=== PATIENT | male | born 1960 | race Caucasian/White ===

== ENCOUNTER 2021-01-18 20:04 | Emergency (ER) | payer OTHER, SELFPAY ==
--- NOTE | ~2021-01-18 | XR_ITS ---
EXAMINATION: XR FOOT, RIGHT CLINICAL INFORMATION: Right great toe bleeding and pain COMPARISON: None TECHNIQUE: AP, lateral, and oblique views of the right foot. FINDINGS: There is a comminuted fractures through the distal phalanx of the right great toe. No definite involvement of the joint space is visualized. There is some possible periosteal reaction along with some resorption of cortical bone indicating that this is probably subacute. Please correlate with history and the patient's symptoms. No other fractures are seen. XR/XR foot RT min 3V IMPRESSION: Fracture distal phalanx right great toe as described above.
[2021-01-18 20:06] VITALS: BP 158/97; PULSE 99; RESP 18; TEMP 36.6; O2SAT 99; BMI 34.0
--- NOTE | 2021-01-18 20:33 | ED_ITS ---
HPI - Extremity Injury (Lower) General Chief Complaint: Extremity Injury, Lower Stated Complaint: MECH FALL,?TOE DISLOCATION Time Seen by Provider: 01/18/21 20:29 Source: patient Mode of arrival: ambulatory Limitations: no limitations History of Present Illness HPI Narrative: Patient came with right greater toe injury after he stood up and stubbed on as greater toe and fell came with laceration and pain at base of right greater toe no other injuries Related Data Previous Rx's Medication Instructions Recorded clindamycin HCl 300 mg PO QID #40 cap 01/18/21 tramadol 50 mg PO Q6H PRN #20 tab 01/18/21 Allergies Allergy/AdvReac Type Severity Reaction Status Date / Time amoxicillin [AMOXICILLIN] Allergy Unknown UNKNOWN Unverified 05/05/20 16:35 Review of Systems Review of Systems: Yes all other systems are reviewed and are negative [facility] Past Medical History Medical History HTN (hypertension) Plantar fasciitis Plantar fasciitis of left foot Plantar fasciitis of right foot Social History Social History Advance Directives: No Advance Directives Information Provided: Yes Physical Exam Vital Signs: Vital Signs: Last Vital Signs Temp 98.4 F 01/18/21 20:50 Pulse 91 01/18/21 20:50 Resp 17 01/18/21 20:50 BP 163/103 H 01/18/21 20:50 Pulse Ox 96 01/18/21 20:50 Body Mass Index 34.0 Const: General: comfortable and in distress Orientation/consciousness: p atient oriented x3 HENMT: Head: Yes normocephalic and Yes atraumatic Chest: Chest palpation & inspection: normal inspection of the chest Resp: Effort & Inspection: normal respiratory effort Neuro: General: patient oriented x3 Extrem: Ankle/foot/toe images: 1. Laceration at the base of right greater toe extending to the nail, nail is intact no subungual hematoma Procedures Laceration Laceration 1: Site: lower extremity (Right greater toe) Side (If applicable): right Size (cm): 2 Description: linear Depth: simple, single layer Local Anesthetic: lidocaine 2% Amount of anesthesia used (mL): 1 Skin layer closed with: nylon Size (cm): 4-0 Number of sutures: 5 Technique: simple, interrupted MDM - Extremity Injury (Lower) MDM Narrative Medical decision making narrative: Patient with right greater toe distal phalanx fracture with laceration. Laceration sutured will give clindamycin prevent any infection in the fractured part. Advised to follow up with Ortho Discharge Plan Discharge Clinical Impression: Laceration Fracture of toe Qualifiers: Encounter type: initial encounter Toe: great toe Fracture type: closed Phalanx: proximal Fracture alignment: nondisplaced Laterality: right Qualified Code(s): S92.414A - Nondisplaced fracture of proximal phalanx of right great toe, initial encounter for closed fracture Patient Disposition: Home, Self-Care Instructions: Laceration (ED), Toe Fracture (ED) Additional Instructions: Local care as advised take antibiotics to avoid infection. Use crutches for support. Follow-up with Orthopedics Suture removal in 2 weeks Prescriptions: New clindamycin HCl 300 mg capsule 300 mg PO QID Qty: 40 RF: 0 tramadol 50 mg tablet 50 mg PO Q6H PRN (Reason: pain) Qty: 20 RF: 0 Referrals: Ryan Martínez MD [Physician] - 5 days Interventions: ED Discharge Assessment Last Done: 01/18/21 22:34 Discharge Date/Time: 01/18/21 22:34
[2021-01-18 20:50] VITALS: BP 163/103; PULSE 91; RESP 17; TEMP 36.9; O2SAT 96
[2021-01-18] MEDS: traMADoL HCL 50 MG TABLET PO (20:56)
[2021-01-18] MEDS: Lidocaine HCl 2 % MPF 5 ML VIAL INFILTRATI (21:31)
== END 2021-01-18 22:34 | disposition home or self-care (01) ==
PROVIDERS: Emergency Provider Internal Medicine
DX: S92.414A Nondisplaced fracture of proximal phalanx of right great toe, initial encounter for closed fracture (principal); S91.111A Laceration without foreign body of right great toe without damage to nail, initial encounter; W22.8XXA Striking against or struck by other objects, initial encounter; Y93.01 Activity, walking, marching and hiking; Y92.019 Unspecified place in single-family (private) house as the place of occurrence of the external cause; Y99.9 Unspecified external cause status
CPT/HCPCS: 12001; 73630; 99283; 99284

== ENCOUNTER 2022-04-26 17:22 | Emergency (ER) | payer OTHER, SELFPAY ==
--- NOTE | ~2022-04-26 | XR_ITS ---
EXAMINATION: XR HIP, LEFT CLINICAL INFORMATION: Left hip dislocation. COMPARISON: None TECHNIQUE: Two views of the left hip. Postreduction 1 view left hip FINDINGS: Left hip: Several left hip images were obtained and reveals a left hip prosthesis dislocation. There is no prosthetic loosening or fracture. Subsequent single AP image postreduction reveals normal alignment of left hip prosthesis. There is no periprosthetic fracture or bony abnormality. The soft tissues are normal. XR/XR hip LT min 2V IMPRESSION: Dislocated left hip prosthesis without fracture.. Postreduction there is normal alignment of left hip on a single AP view.
--- NOTE | ~2022-04-26 | XR_ITS ---
EXAMINATION: XR HIP, LEFT CLINICAL INFORMATION: Left hip dislocation. COMPARISON: None TECHNIQUE: Two views of the left hip. Postreduction 1 view left hip FINDINGS: Left hip: Several left hip images were obtained and reveals a left hip prosthesis dislocation. There is no prosthetic loosening or fracture. Subsequent single AP image postreduction reveals normal alignment of left hip prosthesis. There is no periprosthetic fracture or bony abnormality. The soft tissues are normal. XR/XR hip LT w PEL1V IMPRESSION: Dislocated left hip prosthesis without fracture.. Postreduction there is normal alignment of left hip on a single AP view.
[2022-04-26 17:46] VITALS: BP 127/102; PULSE 96; RESP 16; TEMP 36.9; O2SAT 96; BMI 34.5
--- NOTE | 2022-04-26 21:27 | ED.EXTPRO ---
HPI - Extremity Problem General Chief complaint: Extremity Injury, Lower Stated complaint: s/p left hip repalcement 04/25 ..dislocation Time Seen by Provider: 04/26/22 21:01 Source: patient Mode of arrival: wheelchair Limitations: no limitations History of Present Illness HPI Narrative: 61 yo male hx of HTN s/p L total HR at [facility] yesterday had spinal anesthesia rolled over in the middle of the night on his hip and woke up with hip pain. Has been using crutches called his surgeon advised to come to ED. He is taking his pain medications and is on eliquis to prevent DVTs MD Complaint: joint pain Onset (ago): hour(s) (> 12) Pain Consistency: constant Location: left and lower extremity (hip) Quality: aching and constant Radiation: none Relieving factors: immobilization Exacerbating factors: palpation Associated symptoms: denies other symptoms Context: other (s/p LTHR) Related Data Previous Rx's Medication Instructions Recorded clindamycin HCl 300 mg capsule 300 mg PO QID #40 caps 01/18/21 tramadol 50 mg tablet 50 mg PO Q6H PRN pain #20 tabs 01/18/21 Allergies Allergy/AdvReac Type Severity Reaction Status Date / Time amoxicillin [AMOXICILLIN] Allergy Unknown UNKNOWN Unverified 05/05/20 16:35 Review of Systems Review of Systems: Constitutional : No Fever, No Chills ENT/Mouth : No Ear Pain, No Hoarseness, No sore throat Eyes: No Eye Pain, No Swelling, No Redness, No Foreign Body Cardiovascular : No Chest Pain, No SOB Respiratory : No Cough, No Dyspnea Gastrointestinal : No Nausea, No Vomiting, No Diarrhea, No abdominal Pain Genitourinary : No Dysuria, No Hematuria Musculoskeletal : positive joint pain, No Myalgias, No Joint Swelling Skin : No Skin lacerations, No rash Neuro : No Weakness, No Numbness, No Loss of Consciousness, No Dizziness, No Headache Psych : No Anxiety/Panic, No Depression Heme/Lymph: no easy bruising, no Lymphadenopathy Endocrine : No Polyuria, No Polydipsia All other systems reviewed and are negative [facility] Past Medical History Attestation statement: The following information was validated with the patient. Medical History (Updated 04/26/22 @ 21:38 by Radha Ortiz DO) HTN (hypertension) Plantar fasciitis Plantar fasciitis of left foot Plantar fasciitis of right foot Surgical History (Updated 04/26/22 @ 21:36 by Radha Ortiz DO) History of total left hip replacement Social History Social History (Updated 04/26/22 @ 21:35 by Radha Ortiz DO) Patient Tobacco Use Status: Never used Tobacco Advance Directives: No Advance Directives Information Provided: No Physical Exam Vital Signs: Vital Signs: Last Vital Signs Temp 98.4 F 04/26/22 17:46 Pulse 89 04/26/22 21:59 Resp 18 04/26/22 21:59 BP 121/58 L 04/26/22 21:59 Pulse Ox 100 04/26/22 21:59 O2 Del Method 04/26/22 21:59 O2 Flow Rate 2 04/26/22 21:59 BMI result Body Mass Index 34.5 Appearance: Alert. Oriented X3. No acute distress. Eyes: Pupils equal, round and reactive to light. ENT: Pharynx normal. Neck: Normal inspection. Neck supple. CVS: Normal heart rate and rhythm. Pulses normal. Respiratory: No respiratory distress. Breath sounds normal. Abdomen: Soft and non-tender. Skin: Skin warm and dry. Normal skin color. Normal skin turgor. Extremities: No lower extremity edema. No calf ttp L hip incision is c/d/i - palpable deformity L hip - distal NV intact bounding pulse Neuro: Oriented X 3. No motor deficit. No sensory deficit. Course Course Course Narrative: awake and alert, doing much better, NV intact, given discs to follow up with his surgeon patient back to his baseline recovered from sedation - brother has been at bedside and is his ride home MDM - Extremity (Nontraumatic) MDM Narrative Medical decision making narrative: 61 yo male with hx of HTN, s/p LTHR yesterday (saturday) rolled over on hip now with L hip dislocation. He is distal NV intact. Will attempt sedation and reduction at bedside will place in immobilizer and have him follow up with his orthopedic surgeon if successful. Procedures Orthopedic Joint Reduction Joint #1: Time Out Performed: Yes Side: left Joint Reduction Location: hip Analgesia: procedural sedation Technique used: other (fulcrum over the knee ) Post-reduction neuro exam: intact Post-reduction vascular: intact Post Reduction X-Ray Obtained: Yes Post Reduction X-Ray Results: reduced Splint Applied: Yes Patient Tolerated Procedure: well and no complications Procedural Sedation Indication: fracture/dislocation reduction ASA Class: I Mallampati Class: II Time of Last PO Intake: 12:00 Preparation: flight engineer manager applied, pulse oximeter, capnometry used, supplemental O2 applied, reversal agents at bedside, suction/airway equipment at bedside and IV secured Fentanyl: IV Fentanyl dose (mcg): 50 IV Propofol dose (mg): 100 Patient Tolerated Procedure: well and no complications Complications: none Interventions: oxygen applied Discharge Plan Discharge Clinical Impression: Dislocation, hip Qualifiers: Encounter type: initial encounter Laterality: left Qualified Code(s): S73.005A - Unspecified dislocation of left hip, initial encounter Patient Disposition: Home, Self-Care Instructions: Precautions after Total Joint Replacement Surgery (ED), Hip Dislocation (ED), Total Hip Replacement (DC), Procedural Sedation (ED) Additional Instructions: return to ED for any worsening symptoms or concerns continue your medications please call your orthopedic surgeon in the morning you were reduced easily in the ED x 1 attempt placed in immobilizer FINDINGS: Left hip: Several left hip images were obtained and reveals a left hip prosthesis dislocation. There is no prosthetic loosening or fracture. Subsequent single AP image postreduction reveals normal alignment of left hip prosthesis. There is no periprosthetic fracture or bony abnormality. The soft tissues are normal. XR/XR hip LT min 2V IMPRESSION: Dislocated left hip prosthesis without fracture.. ? Postreduction there is normal alignment of left hip on a single AP view. Prescriptions: No Action clindamycin HCl 300 mg capsule 300 mg PO QID Qty: 40 0RF tramadol 50 mg tablet 50 mg PO Q6H PRN (Reason: pain) Qty: 20 0RF
[2022-04-26] MEDS: fentaNYL citrate/PF 100 MCG/2 ML VIAL 50 MCG IVPUSH (21:41)
[2022-04-26] MEDS: ondansetron HCL 4 MG/2 ML VIAL IVPUSH (21:41)
[2022-04-26 21:51] VITALS: BP 146/68; PULSE 90; RESP 15; O2SAT 99
[2022-04-26] MEDS: propofoL 200 MG/20 ML VIAL 100 MG IVPUSH (21:51)
[2022-04-26 21:52] VITALS: BP 114/66; PULSE 93; RESP 17; O2SAT 98
[2022-04-26 21:59] VITALS: BP 121/58; PULSE 89; RESP 18; O2SAT 100
[2022-04-26 22:59] VITALS: BP 142/70; PULSE 87; RESP 15; O2SAT 99
--- NOTE | 2022-04-26 22:59 | PC.NURSE ---
Pt tolerated sedation and procedure without incident
== END 2022-04-26 23:00 | disposition home or self-care (01) ==
PROVIDERS: Emergency Provider Emergency Medicine
DX: S73.005A Unspecified dislocation of left hip, initial encounter (principal); T84.021A Dislocation of internal left hip prosthesis, initial encounter; M25.552 Pain in left hip; W19.XXXA Unspecified fall, initial encounter; Y93.9 Activity, unspecified; Y92.003 Bedroom of unspecified non-institutional (private) residence as the place of occurrence of the external cause; Y99.9 Unspecified external cause status; Z79.899 Other long term (current) drug therapy; Z79.4 Long term (current) use of insulin
CPT/HCPCS: 27252; 73502; 96374; 96375; 99152; 99282; 99284; J2405; J3010

== ENCOUNTER 2022-04-28 06:14 | Emergency (ER) | payer OTHER, SELFPAY ==
--- NOTE | ~2022-04-28 | XR_ITS ---
EXAMINATION: XR HIP, LEFT CLINICAL INFORMATION: Pain. COMPARISON: Plain films of the hips dating between April 26, 2022 and January 24, 2022. TECHNIQUE: AP and crosstable lateral views of the left hip. XR/XR hip LT w PEL1V FINDINGS/impression: Examination demonstrates the patient to be status post left total hip replacement, as previously seen. The head of the femoral component appears to be dislocated in a cephalad and anterior direction relative to the acetabular component. There is no evidence of hardware fracture or loosening. There are mild degenerative changes of the right hip. No bony fracture is seen. No lytic or sclerotic bony lesion is seen. No soft tissue mass is identified.
[2022-04-28 06:56] VITALS: BP 113/67; PULSE 95; RESP 18; O2SAT 98; BMI 34.5
--- NOTE | 2022-04-28 07:53 | ED_ITS ---
HPI - Extremity Injury (Lower) General Chief Complaint: Extremity Injury, Lower Stated Complaint: hip replacement, dr tello another x-ray Time Seen by Provider: 04/28/22 06:22 Source: patient and family Mode of arrival: ambulatory Limitations: no limitations History of Present Illness HPI Narrative: 61-year-old male status post left THR at [facility] [address] James Lawson, patient stated that the surgery was only 1 day and he left home at the same-day surgery, patient declined any strenuous activity or movement of his left lower extremity is presented yesterday found to have a dislocated left hip that was reduced using a conscious sedation, patient was placed on left knee immobilization, and patient declined any strenuous activity then had popping of his left hip and unable to move it. Related Data Previous Rx's Medication Instructions Recorded clindamycin HCl 300 mg capsule 300 mg PO QID #40 caps 01/18/21 tramadol 50 mg tablet 50 mg PO Q6H PRN pain #20 tabs 01/18/21 Allergies Allergy/AdvReac Type Severity Reaction Status Date / Time amoxicillin [AMOXICILLIN] Allergy Unknown UNKNOWN Unverified 05/05/20 16:35 Review of Systems Review of Systems: All other systems are reviewed and are negative Constitutional: Reports as per HPI and Reports no additional constitutional complaints Eyes: Reports as per HPI and Reports no additional eye complaints Reports system reviewed and no additional complaints, except as documented Cardiovascular: Reports as per HPI and Reports no additional cardiovascular complaints Respiratory: Reports as per HPI and Reports no additional respiratory complaints Gastrointestinal: Reports as per HPI and Reports no additional gastrointestinal complaints Genitourinary: Reports no additional female genitourinary complaints Musculoskeletal: Reports no additional musculoskeletal complaints Skin/Breast: Reports system reviewed and no additional complaints, except as docu Psychiatric: Reports no additional psychiatric complaints Endocrine: Reports no additional endocrine complaints Hematologic/Lymphatic: Reports no additional hematologic/lymphatic complaints Allergic/Immunologic: Reports no additional allergic/immunologic complaints Reports system reviewed and no additional complaints, except as documented and Reports Abnormal speech present [facility] Past Medical History Medical History HTN (hypertension) Plantar fasciitis Plantar fasciitis of left foot Plantar fasciitis of right foot Surgical History History of total left hip replacement Social History Social History Patient Tobacco Use Status: Never used Tobacco Advance Directives: Yes Advance Directives Information Provided: Yes Advance Directives on File: No Physical Exam Vital Signs: Vital Signs: Last Vital Signs Pulse 95 04/28/22 06:56 Resp 18 04/28/22 06:56 BP 113/67 04/28/22 06:56 Pulse Ox 98 04/28/22 06:56 O2 Del Method 04/28/22 06:56 BMI result Body Mass Index 34.5 Vital signs have been reviewed as appeared to be correct. Blood pressure normal. Heart rate normal. Respiration rate normal. Temperature normal. Oxygen saturation normal. Appearance: Alert. Oriented X3. No acute distress. Head: Normal external exam. Normocephalic. Atraumatic. No Luna signs noted. No raccoon eyes noted Eyes: PERRLA. EOMI. Conjunctiva and sclera normal. Eyelids normal. ENT: TM's Normal. Pharynx normal. Uvula midline. Moist mucous membranes. No trismus noted. No drooling noted. No muffled voice noted. Neck: Normal inspection. Neck supple. FROM. No adenopathy. Thyroid Normal. No meningeal signs. No neck mass noted. CVS: Normal heart rate and rhythm. Heart sound normal. No murmurs noted. Pulses normal throughout. Respiratory: No respiratory distress. Painless inspiration. Breath sounds normal. No wheezes/rales/rhonchi noted. Chest nontender. No accessory muscle usage noted or decreased air movement noted. Abdomen: Soft and nontender. Bowel sounds normal in all 4 quadrants. No distention noted. No organomegaly noted. No visible injury noted. Back: No CVA tenderness. Full range of motion noted. Skin: Skin warm and dry. Normal skin color. Normal skin turgor. No rashes/lesions/lacerations noted. Extremities: Left lower extremities shortening and external rotation tenderness over the left hip, neurovascularly intact, able to feel femoral/popliteal/PT/DP on the left side with no ischemic change to indicate vascular compromise. Neuro: Oriented X 3. Cranial nerve exam: II-XII are grossly intact No motor deficit. No sensory deficit. Reflexes normal. Course Course Course Narrative: 61-year-old male status post left THR, patient had 2 dislocation after surgery since yesterday with no strenuous activity despite knee immobilization, the case discussed with [facility] who accepted the patient to [facility], the accepting physician is Dr. Dior. MDM - Extremity Injury (Lower) Imaging Data left hip xrays: Attestation: I personally reviewed and interpreted this imaging study as follows: Radiologist's impression: Examination demonstrates the patient to be status post left total hip replacement, as previously seen. The head of the femoral component appears to be dislocated in a cephalad and anterior direction relative to the acetabular component. There is no evidence of hardware fracture or loosening.. Discharge Plan Discharge Clinical Impression: Dislocation of left hip Patient Disposition: Xfer Acute Care Hospital Transfer Details: [facility] Prescriptions: No Action clindamycin HCl 300 mg capsule 300 mg PO QID Qty: 40 0RF tramadol 50 mg tablet 50 mg PO Q6H PRN (Reason: pain) Qty: 20 0RF
--- NOTE | 2022-04-28 11:17 | PC.NURSE ---
@11:[address] RAHMAN STATES ACCEPTED FOR TRANSFER TO [facility]. NO ROOM ASSIGNMENT PROVIDED. @ 11:12AM CALL PLACED TO [facility] [phone]
--- NOTE | 2022-04-28 11:19 | PC.NURSE ---
@ 1112AM CALL PLACED TO [facility] TRANSFER LINE GLENN ANSWERS AND STATES WE SHOULD BE GETTING A CALL BACK FROM A HOSPITALIST DR ERAZO WILL NEED A COVID SWAB THEN THEY WILL CALL US WITH ROOM ASSIGNMENT
--- NOTE | 2022-04-28 11:23 | PC.NURSE ---
DR ERAZO CALLS BACK TO SPEAK WITHH DR JOSIAH RAHMAN TAKES OVER CALL RIGHT AWAY
--- NOTE | 2022-04-28 11:30 | PC.NURSE ---
GLENN FROM [facility] CALL AT THIS TIME TO GIVE A CALL BACK NUMBER FOR US TO CALL ONCE THE COVID RESULT COMES BACK [phone]
[2022-04-28 11:36] VITALS: BP 131/71; PULSE 85; RESP 16; TEMP 36.8; O2SAT 99
[2022-04-28 11:58] LABS: MANUAL DIFF FLAG NO
[2022-04-28 11:59] LABS: Basophils Percent Auto 0.2 % (0-2); Eosinophils Absolute Auto 0.1 X10*3/uL (0.0-0.4); Eosinophils Percent Auto 0.7 % (0-4); Hematocrit 36.2 % (42.0-52.0); Imm Gran Abs Auto 0.04 X10*3/uL (0.00-0.03); Imm Gran Pct Auto 0.4 % (0.0-0.4); Lymphocytes Absolute Auto 1.6 X10*3/uL (1.2-4.9); Lymphocytes Percent Auto 15.3 % (20-40); Mean Corpuscular HGB Conc 33.1 g/dl (31.0-36.0); Mean Corpuscular Hemoglobin 29.6 pg (27.0-33.0); Mean Corpuscular Volume 89.4 fL (80.0-98.0); Mean Platelet Volume 9.6 fL (9.4-12.4); Monocytes Absolute Auto 1.5 X10*3/uL (0.1-1.2); Neutrophils Absolute Auto 7.2 x10*3/uL (2.0-8.3); Neutrophils Percent Auto 69.4 % (45-73); Platelet Count 176 X10*3/uL (160-400); Red Blood Count 4.05 X10*6/uL (4.60-5.80); White Blood Count 10.4 X10*3/uL (4.8-10.8)
[2022-04-28 12:14] LABS: COVID-19 Test Negative (Negative)
[2022-04-28 12:19] LABS: Anion Gap 15 (12-20); Blood Urea Nitrogen 30 mg/dL (9-16); Calcium 8.4 mg/dL (8.4-10.2); Carbon Dioxide 27 mmol/L (22-29); Chloride 100 mmol/L (96-108); Creatinine Clr Calc Pharmacy 68.7; Estimated Glomerular Filt Rate 47; Glucose Random 102 mg/dL (60-115); Sodium 138 mmol/L (135-145)
[2022-04-28] MEDS: oxyCODONE HCl Immed Release 5 MG TABLET 10 MG PO (14:18)
[2022-04-28] MEDS: Acetaminophen 325 MG TABLET 650 MG PO (14:19)
--- NOTE | 2022-04-28 14:32 | PC.NURSE ---
@ [id number] [facility] CALLED FOR BLS TRANSPORT TO [facility] ASHLEIGH ANSWERS,TAKES PT INFO THEN GIVES ETA 1-2 HOURS
== END 2022-04-28 16:17 | disposition short-term general hospital (02) ==
PROVIDERS: Emergency Provider Emergency Medicine; PCP Internal Medicine
DX: M24.452 Recurrent dislocation, left hip (principal); M25.552 Pain in left hip; Z96.642 Presence of left artificial hip joint; Z20.822 Contact with and (suspected) exposure to COVID-19
CPT/HCPCS: 36415; 73502; 80048; 85025; 87635; 99285

== ENCOUNTER 2022-05-09 10:45 | Emergency (ER) | payer OTHER, SELFPAY ==
[2022-05-09] VITALS (9 sets, daily range): BP systolic 111–143; BP diastolic 66–84; PULSE 80–87; RESP 12–18; TEMP 36.6; O2SAT 97–100; BMI 36.6
--- NOTE | ~2022-05-09 | XR_ITS ---
EXAMINATION: XR PELVIS CLINICAL INFORMATION: Left Hip pain, ? Dislocation COMPARISON: Left hip radiograph dated 04/28/2022. TECHNIQUE: AP view of the pelvis. FINDINGS: As seen on the prior study, the femoral head component of the left total hip prosthesis appears laterally dislocated. Based on the prior study, is most likely dislocated anteriorly as well. No periprosthetic fractures are identified. There is mild osteophytes in the right hip. No fracture in the pelvis. Degenerative spondylosis in the lumbar spine. XR/XR pelvis 1-2V IMPRESSION: Anterolateral dislocation of the left hip prosthesis. No periprosthetic fracture.
--- NOTE | ~2022-05-09 | XR_ITS ---
EXAMINATION: XR PELVIS CLINICAL INFORMATION: reduction left hip COMPARISON: Same date at 11:25 AM. TECHNIQUE: AP view of the pelvis. FINDINGS: The femoral component of the left total hip arthroplasty is appropriately reduced in the acetabular cup. No fractures are identified. No appreciable periprosthetic lucency. Bone mineralization is normal. Soft tissues are unremarkable. There is cortical irregularity at the lateral margin of the acetabular roof, due to periosteal bone formation at the capsular attachment. Mild osteoarthritis in the right hip. XR/XR pelvis 1-2V IMPRESSION: Successful reduction of the left total hip arthroplasty.
--- NOTE | 2022-05-09 11:00 | ED_ITS ---
HPI - Extremity Problem General Chief complaint: Extremity Problem Stated complaint: L HIP DISLOCATION 3X'S IN 2 WEEKS PER EMS Time Seen by Provider: 05/09/22 10:52 Source: patient, EMS and old records reviewed Mode of arrival: EMS Limitations: no limitations History of Present Illness HPI Narrative: 61 yo male hx of HTN, on prophylactic eliquis s/p L THR on 04/25 this is his 3rd dislocation - has a specialist in [place]. He was reduced here once on 04/26, then in [place] 04/28 he wears a special brace. Hip went out again spontaneously about 1 hour prior to arrival Complaint: joint pain Onset (ago): hour(s) (1) Pain Consistency: constant Location: left and lower extremity (hip) Quality: aching and constant Radiation: none Relieving factors: immobilization Exacerbating factors: range of motion and palpation Associated symptoms: denies other symptoms Context: other (recurrent dislocation s/p L THR) Related Data Previous Rx's Medication Instructions Recorded clindamycin HCl 300 mg capsule 300 mg PO QID #40 caps 01/18/21 tramadol 50 mg tablet 50 mg PO Q6H PRN pain #20 tabs 01/18/21 Allergies Allergy/AdvReac Type Severity Reaction Status Date / Time amoxicillin [AMOXICILLIN] Allergy Unknown UNKNOWN Verified 05/09/22 11:10 Review of Systems Review of Systems: Constitutional : No Fever, No Chills ENT/Mouth : No Ear Pain, No Hoarseness, No sore throat Eyes: No Eye Pain, No Swelling, No Redness, No Foreign Body Cardiovascular : No Chest Pain, No SOB Respiratory : No Cough, No Dyspnea Gastrointestinal : No Nausea, No Vomiting, No Diarrhea, No abdominal Pain Genitourinary : No Dysuria, No Hematuria Musculoskeletal : positive joint pain, No Myalgias, No Joint Swelling Skin : No Skin lacerations, No rash Neuro : No Weakness, No Numbness, No Loss of Consciousness, No Dizziness, No Headache Psych : No Anxiety/Panic, No Depression Heme/Lymph: no easy bruising, no Lymphadenopathy Endocrine : No Polyuria, No Polydipsia All other systems reviewed and are negative [facility] Past Medical History Attestation statement: The following information was validated with the patient. Medical History HTN (hypertension) Plantar fasciitis Plantar fasciitis of left foot Plantar fasciitis of right foot Surgical History History of total left hip replacement Social History Social History Patient Tobacco Use Status: Never used Tobacco Advance Directives: Yes Advance Directives Information Provided: Yes Advance Directives on File: No Physical Exam Vital Signs: Vital Signs: Last Vital Signs Temp 98 F 05/09/22 11:22 Pulse 80 05/09/22 11:49 Resp 16 05/09/22 11:49 BP 118/70 05/09/22 11:49 Pulse Ox 97 05/09/22 11:49 O2 Del Method 05/09/22 11:49 O2 Flow Rate 3 05/09/22 11:35 Oxygen Flow Rate 2 05/09/22 11:46 BMI result Body Mass Index 36.6 Appearance: Alert. Oriented X3. anxious in pain mild acute distress. Eyes: Pupils equal, round and reactive to light. ENT: Pharynx normal. Neck: Normal inspection. Neck supple. CVS: Normal heart rate and rhythm. Pulses normal. Respiratory: No respiratory distress. Breath sounds normal. Abdomen: Soft and nontender. Skin: Skin warm and dry. Normal skin color. Normal skin turgor. Extremities: No lower extremity edema. L hip ttp along lateral hip Neuro: Oriented X 3. No motor deficit. No sensory deficit. Course Course Course Narrative: called by his surgeon plan for surgery on Saturday at baseline stable for DC MDM - Extremity (Nontraumatic) MDM Narrative Medical decision making narrative: 61 yo male with L hip dislocation recurrent 3rd dislocation at this time will reduce and then he has follow up with his surgeon to have surgery in 1 week most likely. He is NV intact Procedures Orthopedic Joint Reduction Joint #1: Time Out Performed: Yes Side: left Joint Reduction Location: hip Analgesia: procedural sedation Technique used: traction/counter-traction Post-reduction neuro exam: intact Post-reduction vascular: intact Post Reduction X-Ray Obtained: Yes Post Reduction X-Ray Results: reduced Splint Applied: Yes Patient Tolerated Procedure: well and no complications Procedural Sedation Indication: fracture/dislocation reduction ASA Class: I Mallampati Class: II Time of Last PO Intake: 21:00 Preparation: surveillance monitor applied, pulse oximeter, capnometry used, supplemental O2 applied, reversal agents at bedside, suction/airway equipment at bedside and IV secured Fentanyl: IV Fentanyl dose (mcg): 25 IV Propofol dose (mg): 120 Patient Tolerated Procedure: well and no complications Complications: none Critical Care Time Critical Care Time Critical Care Time: Yes Total Critical Care Time: 35 Attestation: review of records, IV pain medications, repeat assessments I attest to this time spent taking care of the patient Discharge Plan Discharge Clinical Impression: Dislocation of hip joint prosthesis Qualifiers: Encounter type: initial encounter Qualified Code(s): T84.029A - Dislocation of unspecified internal joint prosthesis, initial encounter Patient Disposition: Home, Self-Care Instructions: Precautions after Total Joint Replacement Surgery (ED), Moderate Sedation (ED), Hip Dislocation (ED) Additional Instructions: return to ED for any worsening symptoms or concerns please stay with responsible adult today Prescriptions: No Action clindamycin HCl 300 mg capsule 300 mg PO QID Qty: 40 0RF tramadol 50 mg tablet 50 mg PO Q6H PRN (Reason: pain) Qty: 20 0RF Interventions: ED Discharge Assessment Last Done: 05/09/22 14:16 Discharge Date/Time: 05/09/22 14:16
[2022-05-09] MEDS: ondansetron HCL 4 MG/2 ML VIAL IVPUSH (11:15)
[2022-05-09] MEDS: fentaNYL citrate/PF 100 MCG/2 ML VIAL 25 MCG IVPUSH (11:15)
[2022-05-09] MEDS: propofoL 200 MG/20 ML VIAL 100 MG IVPUSH (11:32)
[2022-05-09] MEDS: propofoL 200 MG/20 ML VIAL 20 MG IVPUSH (11:35)
== END 2022-05-09 14:16 | disposition home or self-care (01) ==
PROVIDERS: Emergency Provider Emergency Medicine; PCP Internal Medicine
DX: T84.021D Dislocation of internal left hip prosthesis, subsequent encounter (principal); Y79.2 Prosthetic and other implants, materials and accessory orthopedic devices associated with adverse incidents; X50.1XXD Overexertion from prolonged static or awkward postures, subsequent encounter
CPT/HCPCS: 27266; 72170; 96374; 96375; 96376; 99152; 99283; 99285; J2405; J3010

== ENCOUNTER 2023-10-10 19:53 | Emergency (ER) | payer OTHER, SELFPAY ==
[2023-10-10 20:38] VITALS: BP 143/99; PULSE 107; RESP 18; TEMP 36.8; O2SAT 96; BMI 35.6
--- NOTE | 2023-10-10 20:41 | ED.SKABFB ---
HPI - Skin/Abscess/Foreign Bdy General Chief complaint: Skin/Abscess/Foreign Body Stated complaint: cyst on back of neck Time Seen by Provider: 10/11/23 00:14 Source: patient, RN notes reviewed and old records reviewed Mode of arrival: ambulatory Limitations: no limitations History of Present Illness HPI narrative: 62-year-old male presents for evaluation of pain redness, swelling to the back of his neck He reports for the last 3 days he has noticed swelling area which seemed to worsen today. He is concerned for infection. Denies being bit by anything that he is aware of and he believes this started as ?an ingrown hair. ? He denies any fevers or chills. He went to his PCP earlier today and was prescribed doxycycline. Patient believes the area has been worsening since he took his 1 dose of doxycycline earlier. Therefore he presents for re-evaluation Related Data Home Medications Medication Instructions Recorded Confirmed erythromycin 500 mg tablet 1,000 mg PO 10/22/22 valsartan 160 1 tab PO DAILY 10/22/22 mg-hydrochlorothiazide 12.5 mg tablet Previous Rx's Medication Instructions Recorded clindamycin HCl 300 mg capsule 300 mg PO QID #40 caps 01/18/21 tramadol 50 mg tablet 50 mg PO Q6H PRN pain #20 tabs 01/18/21 ibuprofen 600 mg tablet 600 mg PO Q8H PRN pain #90 tabs 10/22/22 tizanidine 4 mg tablet 4 mg PO BID PRN muscle spasticity 10/22/22 7 days #14 tabs cephalexin 500 mg capsule 500 mg PO QID #28 caps 10/11/23 Allergies Allergy/AdvReac Type Severity Reaction Status Date / Time amoxicillin [AMOXICILLIN] Allergy Unknown UNKNOWN Verified 10/10/23 20:37 Review of Systems Constitutional: Constitutional: Denies body ache(s), Denies chills and Denies fever(s) ENT: Denies sore throat Integumentary/Breasts: Skin/Breast: Reports erythema, Reports rash, Reports skin pain and Reports skin swelling PMFSH Past Medical History Medical History HTN (hypertension) Plantar fasciitis Plantar fasciitis of left foot Plantar fasciitis of right foot Surgical History History of total left hip replacement Social History Social History Patient Tobacco Use Status: Never used Tobacco Advance Directives: No Advance Directives Information Provided: Yes Physical Exam Vital Signs: Vital Signs: Last Vital Signs Temp 98.8 F 10/11/23 00:13 Pulse 90 10/11/23 00:13 Resp 17 10/11/23 00:13 BP 147/92 H 10/11/23 00:13 Pulse Ox 98 10/11/23 00:13 O2 Del Method Room Air 10/11/23 00:13 BMI result Body Mass Index 35.6 Const: General: healthy appearing, comfortable, no acute distress, alert and awake Nutritional Appearance: well nourished Orientation/consciousness: patient oriented x3 HEENT: Head: Yes normocephalic and Yes atraumatic Eyes: Eyelids: Yes eyelids normal Conjunctivae: conjunctivae normal Sclerae: sclerae normal Corneas: corneas normal Pupils: Equal, round and reactive pupils present EOM: EOMs intact bilaterally Neck: Other: Patient has an area about 4 cm diameter of erythema with induration to the posterior scalp approximately midline. There is no area of fluctuance, open wounds Neck: Yes full ROM, Yes no meningeal signs, Yes supple, No anterior neck swelling, No positive Brudzinski's sign and No positive Kernig's sign Resp: Effort & Inspection: normal respiratory effort, able to speak in complete sentences and not labored Skin: General skin exam: elasticity normal Neuro: General: patient oriented x3 and no meningeal signs Cranial nerves: Yes Equal, round and reactive pupils present and Yes Bilaterally intact EOM present Cognition (Neuro): normal cognition Course Course Course Narrative: This is a rapid medical exam. Deferred additional HPI, ROS, PE to primary provider. 62yo male here with complaints of cyst to the posterior neck, started doxy today. No fevers, chills. Defer for ?I&D VSS Medical Decision Making Medical Decision Making MDM Narrative: 62-year-old male presents for evaluation of an area of infection to the posterior neck. It is most consistent with cellulitis as there is induration but no evidence of fluctuance. I used bedside ultrasound to evaluate for drainable abscess and did not see any. I offered to attempt needle aspiration and would proceed with formal incision and drainage if I was able to aspirate any purulent drainage. The patient consented to this. I locally anesthetized the area with 2 cc of 1% lidocaine. I was unable to aspirate any purulent drainage and therefore did not see any indication for incision and drainage. Patient be discharged with cephalexin in addition to his doxycycline for added coverage Differential Diagnosis Differential Diagnoses: The differential diagnosis associated with the presentation includes Cellulitis Abscess Infected sebaceous cyst Ingrown hair Discharge Plan Discharge Clinical Impression: Cellulitis Patient Disposition: Home, Self-Care Instructions: Cellulitis (ED) Additional Instructions: Continue taking the doxycycline and add cephalexin as prescribed. Apply warm compresses every 4 hours for the next 2 days. Return for new or worsening symptoms, especially if the area becomes soft and squishy as it may then be amenable to incision and drainage, or if you develop a fever Prescriptions: New cephalexin 500 mg capsule 500 mg PO QID Qty: 28 0RF No Action clindamycin HCl 300 mg capsule 300 mg PO QID Qty: 40 0RF tramadol 50 mg tablet 50 mg PO Q6H PRN (Reason: pain) Qty: 20 0RF valsartan-hydrochlorothiazide 160-12.5 mg tablet 1 tab PO DAILY erythromycin 500 mg tablet 1,000 mg PO ibuprofen 600 mg tablet 600 mg PO Q8H PRN (Reason: pain) Qty: 90 0RF tizanidine 4 mg tablet 4 mg PO BID PRN (Reason: muscle spasticity) 7 Days Qty: 14 0RF
[2023-10-11 00:13] VITALS: BP 147/92; PULSE 90; RESP 17; TEMP 37.1; O2SAT 98
== END 2023-10-11 01:15 | disposition home or self-care (01) ==
PROVIDERS: Emergency Provider Internal Medicine; PCP Family Medicine
DX: L03.221 Cellulitis of neck (principal); L72.9 Follicular cyst of the skin and subcutaneous tissue, unspecified; I10 Essential (primary) hypertension
CPT/HCPCS: 99283

== ENCOUNTER 2024-02-27 09:40 | Outpatient (AMB) | payer OTHER, SELFPAY ==
[2024-02-27 09:42] VITALS: BP 140/90; PULSE 87; TEMP 36.8; O2SAT 98; BMI 35.5
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
--- OUTSIDE RECORDS SUMMARY | 2024-02-27 09:42 | XMS_ITS | Continuity of Care Document ---
Author Organization [facility] Address [address] [place] [address]- Care Team Providers Care Special Officer Name Role Phone Pilar CORDOVA, Spencer Butler Primary Care Phys[place] [facility] [place] [facility] Adult [address] [place] [address]- Attending Physician: Deirdre Bueno Admitting Physician: AdmDeirdre mg Referring Physician: Admtr Ar8 Allergies, Adverse Reactions, Alerts Substance Reaction Severity Status amLODIPine Active Immunizations Given and Recorded Vaccine Date Status Refusal Reason hepatitis B adult vaccine 1 09/25/21 Given hepatitis B adult vaccine 2 08/24/21 Given Hepatitis A Adult Vaccine 3 08/24/21 Given SARS-CoV-2 (COVID-19) Ad26 vaccine 11/22/20 Record ed SARS-CoV-2 (COVID-19) Ad26 vaccine 11/22/20 Record ed tetanus/diphtheria/pertussis, acel(Tdap) 07/21/18 Given 1Result Comment: [id number] 2Result Comment: [id number] 3Result Comment: [id number] Medications Vitamin D2 2000 intl units oral capsule 1 capsule = 50 mcg, By Mouth, Daily, 0 Refills, Maintenance, 12/20/21 5:53:00 EDT, Partial fill upon patient request if the prescription is for a schedule II opioid drug. Start Date: 12/20/21 Status: Ordered Problem List Condition Effective Dates Status Health Status Inform ant Benign hypertension(Confirmed) Active Chronic back pain L5-S21 hna rrowing MRI(Confirmed) 1 12/18/21 Active COVID-19(Confirmed) 08/28/21 Active Low vitamin D level(Confirmed) 12/18/21 Active Erythrocytosis(Confirmed) Active Ex-cigarette smoker(Confirmed) 04/26/21 Active Mold exposure(Confirmed) 04/26/21 Active History of COVID-07 OCT 2021(Confirmed) Active Mitral prolapse.MR ECHO 2020(Confirmed) 04/26/21 Active Neurogenic claudication/NEOS NOV 2021 refered MRI(Confirmed) Active Obese class II(Confirmed) Active Plantar fasciitis(Confirmed) Active Allergic rhinitis, seasonal(Confirmed) Active Fatty liver(Confirmed) 08/07/21 Active 1Degenerative changes of the lumbar spine without nerve root impingement. Foraminal narrowing is most pronounced on the right at L5-S1. Procedures Procedure Date Related Diagnosis Body Site Status Ankle brachial pressure index normal 1 01/10/22 Completed 1abi rt1.0 lft 0.96 tbi 0.71/.70 Social History Social History Type Response Tobacco Other: quit igh t smoker. Sex
--- OUTSIDE RECORDS SUMMARY | 2024-02-27 09:42 | XMS_ITS | Continuity of Care Document ---
Author Organization [facility] Address [address] [address]- Care Team Providers Care Oil Winterizer Name Role Phone Pilar CORDOVA, Spencer Butler Primary Care Physician Encounter [facility] [place] Date(s): 12/11/21 - 01/10/22 [facility] [address] [address]- Attending Physician: Deirdre Bueno Admitting Physician: Deirdre Bueno Referring Physician: AdmtrDeirdre Allergies, Adverse Reactions, Alerts Substance Reaction Severity Status amLODIPine Active Immunizations Given and Recorded Vaccine Date Status Refusal Reason hepatitis B adult vaccine 1 09/25/21 Given hepatitis B adult vaccine 2 08/24/21 Given Hepatitis A Adult Vaccine 3 08/24/21 Given SARS-CoV-2 (COVID-19) Ad26 vaccine 11/22/20 Record ed SARS-CoV-2 (COVID-19) Ad26 vaccine 11/22/20 Record ed tetanus/diphtheria/pertussis, acel(Tdap) 07/21/18 Given 1Result Comment: [id number] 2Result Comment: [facility]-[id number] 3Result Comment: [id number] Medications Vitamin D2 2000 intl units oral [...] most pronounced on the right at L5-S1. Social History Social History Type Response Tobacco Other: quit igh t smoker. Sex
--- OUTSIDE RECORDS SUMMARY | 2024-02-27 09:42 | XMS_ITS | Continuity of Care Document ---
Author Organization [facility] Address [address] [address]- Care Team Providers Care Burlapper Name Role Phone Spencer Quezada MD Primary Care Physician Encounter [facility] [place] Date(s): 05/23/21 - 05/30/21 [id number] [address]- Attending Physician: Mariah Yarbrough MD Admitting Physician: Mariah Yarbrough MD Referring Physician: Spencer Quezada MD Allergies, Adverse Reactions, Alerts No Known Medication Allergies Immunizations Given and Recorded Vaccine Date Status Refusal Reason SARS-CoV-2 (COVID-19) Ad26 vaccine 11/22/20 Record ed SARS-CoV-2 (COVID-19) Ad26 vaccine 11/22/20 Record ed tetanus/diphtheria/pertussis, acel(Tdap) 07/21/18 Given Problem List Condition Effective Dates Status Health Status Inform ant Heart murmur, aortic(Confirmed) 04/26/21 Active Cigarette smoker refer quitnow(Confirmed) 04/26/21 Active Mold exposure(Confirmed) 04/26/21 Active Abnormal liver enzymes(Confirmed) 04/26/21 Active Plantar fasciitis(Confirmed) Active Vital Signs Most recent to oldest [Reference Range]: 1 Height 183 cm (05/23/21 11:36 AM) Weight 110.4 kg (05/23/21 11:36 AM) Oxygen Saturation [94-100 %] 98 % (05/23/21 11:36 AM) Pulse Rate [55-90 bpm] 81 bpm (05/23/21 11:36 AM) Body Mass Index [18.5-24.99] 32.97 *>HHI* (05/23/21 11:36 AM) Blood Pressure [90-138/55-84 mm Hg] 170/ 100mm Hg *H* (05/23/21 11:36 AM) Blood pressure sites Arm, left (05/23/21 11:36 AM) Weight Obtained Via Standing scale (05/23/21 11:36 AM) Social History Social History Type Response Tobacco Use: 4 or less cigar ettes(less than 1/4 pack)/day in last 30 days, 1 pack a month since teens; . Sex
--- OUTSIDE RECORDS SUMMARY | 2024-02-27 09:42 | XMS_ITS | Continuity of Care Document ---
Author Organization [facility] [place] Address [address] [place] [address]- Care Team Providers Care Roof Fixer Name Role Phone Piotr CORDOVA, Juan Walker Primary Care Physician [place] [facility] [place]23 - 03/14/23 [facility] Adult [address] [place] [address]- Allergies, Adverse Reactions, Alerts Substance Reaction Severity Status amLODIPine Active Immunizations Given and Recorded Vaccine Date Status Refusal Reason SARS-CoV-2 mRNA (ffrjfkh-smps-tqoxr) vax 1 02/21/22 Given Hepatitis A Adult Vaccine 2 02/21/22 Given Hepatitis A Adult Vaccine 3 08/24/21 Given hepatitis B adult vaccine 4 09/25/21 Given hepatitis B adult vaccine 5 08/24/21 Given SARS-CoV-2 (COVID-19) Ad26 vaccine 11/22/20 Record ed SARS-CoV-2 (COVID-19) Ad26 vaccine 11/22/20 Record ed tetanus/diphtheria/pertussis, acel(Tdap) 07/21/18 Given 1Result Comment: [facility]-[id number] 2Result Comment: [id number] 3Result Comment: [id number] 4Result Comment: [id number] 5Result Comment: [id number] Medications Clindagel 1% topical gel 1 application, Topically, 2 times a day, # 60 Gm, 0 Refills, Maintenance, 03/14/23 16:00:00 EDT, Gel, [id number], Partial fill upon patient request if the prescription is for a schedule II opioid drug., 1 application Topically 2 times a day, 1... Start Date: 03/14/23 Status: Ordered hydrochlorothiazide-valsartan 12.5 mg-160 mg oral tablet 1 tablet, By Mouth, Daily, # 90 tablet, 3 Refills, Maintenance, 11/30/23 11:40:00 EDT, Tablet, [id number], Partial fill upon patient request if the prescription is for a schedule II opioid drug., 1 tablet By Mouth Daily,x90 days, 183, cm, 12/17... Start Date: 11/30/23 Stop Date: 11/24/24 Status: Ordered hydrochlorothiazide-valsartan 12.5 mg-160 mg oral tablet 1 tablet, By Mouth, Daily, for 90 days, # 90 tablet, 3 Refills, Hard Stop 11/30/23 11:40:00 EDT, 12/05/22 11:40:00 EDT, Tablet, [id number], Partial fill upon patient request if the prescription is for a schedule II opioid drug., 183, cm, 11/08... Start Date: 12/05/22 Stop Date: 11/30/23 Status: Ordered predniSONE 10 mg oral tablet See Instructions, Take four tabs PO QD in the AM x 3 days, then three tabs QD x 3 days, then two tabs QD x 3 days, then two tabs QD x 3 days, then one tab QD x 3 days, # 30 tablet, 0 Refills, Maintenance, 01/22/23 13:23:00 EDT, [id number], Par... Start Date: 01/22/23 Status: Ordered Problem List Condition Confirmation Course Effective Dates Status H ealth Status Informant Benign hypertension Confirmed Active Chronic back pain L5-S21 narrowing MRI 1 Confirmed 12/18/21 Active COVID-19 Confirmed 08/28/21 Active Low vitamin D level Confirmed 12/18/21 Active Ex-cigarette smoker Confirmed 04/26/21 Active History of COVID-07 OCT 2021 Confirmed Active H/O total hip arthroplasty left apr 2022 Confirmed Active Mitral prolapse.MR ECHO 2020 Confirmed 04/26/21 Active Obese class I Confirmed Active Osteoarthritis of left hip advanced/preop Confirmed Active Allergic rhinitis, seasonal Confirmed Active Fatty liver Confirmed 08/07/21 Active 1Degenerative changes of the lumbar spine without nerve root impingement. Foraminal narrowing is most pronounced on the right at L5-S1. Social History Social History Type Response Tobacco Other: quit igh t smoker. Sex Patient Care team information Care Team Personnel Name: Piotr CORDOVA, Juan Walker Position: S Physician - Primary Care Member Role: PCP Address: Address: [address] [place] [address]- Care Team Related Persons Name: BERT FREGOSO Name: CASANDRA SHERWOOD Address: home [address] [place] [address] Name: JUNE SHERWOOD Name: JYOTI DE LA CRUZ
--- OUTSIDE RECORDS SUMMARY | 2024-02-27 09:42 | XMS_ITS | Continuity of Care Document ---
Author Organization [facility] Address [address] [place] [address]- Care Team Providers Care Manager Product Name Role Phone Piotr CORDOVA, Juan Walker Primary Care Physician [phone] Encounter [facility] [place] Date(s): 12/05/22 - 01/04/23 [facility] [address] [place] [address]- [place] Allergies, Adverse Reactions, Alerts Substance Reaction Severity Status amLODIPine Active Immunizations Given and Recorded Vaccine Date Status Refusal Reason SARS-CoV-2 mRNA (mvvcqdi-zzop-pspmz) vax 1 02/21/22 Given Hepatitis A Adult Vaccine 2 02/21/22 Given Hepatitis A Adult Vaccine 3 08/24/21 Given hepatitis B adult vaccine 4 09/25/21 Given hepatitis B adult vaccine 5 08/24/21 Given SARS-CoV-2 (COVID-19) Ad26 vaccine 11/22/20 Record ed SARS-CoV-2 (COVID-19) Ad26 vaccine 11/22/20 Record ed tetanus/diphtheria/pertussis, acel(Tdap) 07/21/18 Given 1Result Comment: [facility]-[id number] 2Result Comment: [facility]-[id number] 3Result Comment: [id number] 4Result Comment: [facility]-[id number] 5Result Comment: [facility]-[id number] Medications hydrochlorothiazide-valsartan 12.5 mg-160 mg oral tablet 1 tablet, By Mouth, Daily, # 90 tablet, 3 Refills, Maintenance, 11/30/23 11:40:00 EDT, Tablet, [id number], Partial fill upon patient request if the prescription is for a schedule II opioid drug., 1 tablet By Mouth Daily,x90 days, 183, cm, 12/17... Start Date: 11/30/23 Stop Date: 11/24/24 Status: Ordered hydrochlorothiazide-valsartan 12.5 mg-160 mg oral tablet 1 tablet, By Mouth, Daily, for 90 days, # 90 tablet, 3 Refills, Hard Stop 11/30/23 11:40:00 EDT, 12/05/22 11:40:00 EDT, Tablet, [id number], Partial fill upon patient request if the prescription is for a schedule II opioid drug., 183, cm, 11/08... Start Date: 12/05/22 Stop Date: 11/30/23 Status: Ordered Problem List Condition Confirmation Course [...] Mitral prolapse.MR ECHO 2020 Confirmed 04/26/21 Active Osteoarthritis of left hip advanced/preop Confirmed Active Allergic rhinitis, seasonal Confirmed Active Severe obesity (BMI 35.0-39.9) with comorbidity Confirmed Active Fatty liver Confirmed 08/07/21 Active 1Degenerative changes of the lumbar spine without nerve root impingement. Foraminal narrowing is most pronounced on the right at L5-S1. Social History Social History Type Response Tobacco Other: quit igh t smoker. Sex Patient Care team information Care Team Personnel Name: Piotr CORDOVA, Juan Walker Position: S Primary Care Physician Member Role: PCP Address: Address: [address] [place] [address]- Care Team Related Persons Name: BERT FREGOSO Name: CASANDRA SHERWOOD Address: home [address] [place] [address] Name: JUNE SHERWOOD Name: JYOTI DE LA CRUZ
--- OUTSIDE RECORDS SUMMARY | 2024-02-27 09:42 | XMS_ITS | Continuity of Care Document ---
Author Organization [facility] Address [address] [address]- Care Team Providers Care Superintendent Gas Distribution Name Role Phone Pilar CORDOVA, Spencer Butler Primary Care Physician [phone] Encounter [facility] Date(s): 06/23/21 - 07/23/21 [facility] [address] [address]- [place] Allergies, Adverse Reactions, Alerts No Known Medication Allergies Immunizations Given and Recorded Vaccine Date Status Refusal Reason SARS-CoV-2 (COVID-19) Ad26 vaccine 11/22/20 Record ed SARS-CoV-2 (COVID-19) Ad26 vaccine 11/22/20 Record ed tetanus/diphtheria/pertussis, acel(Tdap) 07/21/18 Given Problem List Condition Effective Dates Status Health Status Inform ant Benign hypertension(Confirmed) Active Cigarette smoker refer quitnow(Confirmed) 04/26/21 Active Mold exposure(Confirmed) 04/26/21 Active Abnormal liver enzymes(Confirmed) 04/26/21 Active Mitral prolapse.MR ECHO 2020(Confirmed) 04/26/21 Active Plantar fasciitis(Confirmed) Active Allergic rhinitis, seasonal(Confirmed) Active Social History Social History Type Response Tobacco Use: 4 or less cigar ettes(less than 1/4 pack)/day in last 30 days, 1 pack a month since teens; . Sex
--- OUTSIDE RECORDS SUMMARY | 2024-02-27 09:42 | XMS_ITS | Continuity of Care Document ---
Author Organization [facility] Address [address] [place] [address] [address], [address] [place] [address]- Care Team Providers Care Health Commissioner Name Role Phone Piotr CORDOVA, Juan Walker Primary Care Physician [phone] [place] [facility] [place]s): 08/22/23 - 09/21/23 [facility] [address] [place] [address] Drive, [address] [place], [place] [address] Allergies, Adverse Reactions, Alerts Substance Reaction Severity Status amoxicillin Active amLODIPine Active Immunizations Given and Recorded Vaccine Date Status Refusal Reason SARS-CoV-2 mRNA (bslkmqx-ffxp-cilcb) vax 1 02/21/22 Given Hepatitis A Adult Vaccine 2 02/21/22 Given Hepatitis A Adult Vaccine 3 08/24/21 Given hepatitis B adult vaccine 4 09/25/21 Given hepatitis B adult vaccine 5 08/24/21 Given SARS-CoV-2 (COVID-19) Ad26 vaccine 11/22/20 Record ed SARS-CoV-2 (COVID-19) Ad26 vaccine 11/22/20 Record ed tetanus/diphtheria/pertussis, acel(Tdap) 07/21/18 Given 1Result Comment: [facility]-[id number] 2Result Comment: [facility]-[id number] 3Result Comment: [id number] 4Result Comment: [facility]-[id number] 5Result Comment: [id number] Medications hydrochlorothiazide-valsartan 12.5 mg-160 mg oral tablet [...] Primary Care Member Role: PCP Address: Address: [address] [place] [address] [place] [address]- Care Team Related Persons Name: BERT FREGOSO Name: CASANDRA SHERWOOD Address: home [address] [place] [address] Name: JUNE SHERWOOD Name: JYOTI DE LA CRUZ
--- OUTSIDE RECORDS SUMMARY | 2024-02-27 09:42 | XMS_ITS | Continuity of Care Document ---
Author Organization [facility] [place] Address [address] [place] [address]- Care Team Providers Care Director Post Name Role Phone Piotr CORDOVA, Juan Walker Primary Care Physician [phone] Encounter [facility] Date(s): 12/02/23 - 01/01/24 [facility] Adult [address] [place] [address]- Allergies, Adverse Reactions, Alerts Substance Reaction Severity Status amoxicillin Active amLODIPine Active Immunizations Given and Recorded Vaccine Date Status Refusal Reason SARS-CoV-2 mRNA (nlzjzym-rnow-liker) vax 1 02/21/22 Given Hepatitis A Adult Vaccine 2 02/21/22 Given Hepatitis A Adult Vaccine 3 08/24/21 Given hepatitis B adult vaccine 4 09/25/21 Given hepatitis B adult vaccine 5 08/24/21 Given SARS-CoV-2 (COVID-19) Ad26 vaccine 11/22/20 Record ed SARS-CoV-2 (COVID-19) Ad26 vaccine 11/22/20 Record ed tetanus/diphtheria/pertussis, acel(Tdap) 07/21/18 Given 1Result Comment: [facility]-[id number] 2Result Comment: [facility]-[id number] 3Result Comment: [id number] 4Result Comment: [id number] 5Result Comment: [id number] Medications hydrochlorothiazide-valsartan 12.5 mg-160 mg oral tablet 1 tablet, By Mouth, Daily, for 90 days, # 90 tablet, 1 Refills, Hard Stop 04/05/24 12:27:00 EDT, 10/08/23 12:27:00 EST, Tablet, [id number], Partial fill upon patient request if the prescription is for a schedule II opioid drug., 1 tablet By Mo... Start Date: 10/08/23 Stop Date: 04/05/24 Status: Ordered Problem List Condition Confirmation Course [...] Care team information Care Team Personnel Name: Juan Saldaña MD Position: [facility] Physician - Primary Care Member Role: PCP Address: Address: [address] [place] [address]- Care Team Related Persons Name: BERT SAINZ Address: [facility] [address] Name: CASANDRA SHERWOOD Address: home [address] [place] [address] Name: JUNE SHERWOOD Name: JYOTI DE LA CRUZ
--- OUTSIDE RECORDS SUMMARY | 2024-02-27 09:42 | XMS_ITS | Continuity of Care Document ---
Author Organization [facility] [place] Address [address] [place] [address]- Care Team Providers Care Mechanical Engineering Lecturer Name Role Phone Juan Saldaña MD Primary Care Physician [phone] Encounter [facility] [place] Date(s): 02/13/23 - 04/13/23 [facility] Adult [address] [place] [address]- Attending Physician: Juan Saldaña MD Allergies, Adverse Reactions, Alerts Substance Reaction Severity Status amLODIPine Active Immunizations Given and Recorded Vaccine Date Status Refusal Reason SARS-CoV-2 mRNA (ruovmjn-vvoz-cpfhs) vax 1 02/21/22 Given Hepatitis A Adult Vaccine 2 02/21/22 Given Hepatitis A Adult Vaccine 3 08/24/21 Given hepatitis B adult vaccine 4 09/25/21 Given hepatitis B adult vaccine 5 08/24/21 Given SARS-CoV-2 (COVID-19) Ad26 vaccine 11/22/20 Record ed SARS-CoV-2 (COVID-19) Ad26 vaccine 11/22/20 Record ed tetanus/diphtheria/pertussis, acel(Tdap) 07/21/18 Given 1Result Comment: [facility]-[id number] 2Result Comment: [facility]-[id number] 3Result Comment: [id number] 4Result Comment: [id number] 5Result Comment: [id number] Medications clindamycin 1% topical lotion 1 application, Topically, 2 times a day, # 60 mL, 5 Refills, Maintenance, 03/20/23 6:15:00 EDT, Lotion, [id number], Partial fill upon patient request if the prescription is for a schedule II opioid drug., 1 application Topically 2 times a day,... Start Date: 03/20/23 Status: Ordered hydrochlorothiazide-valsartan 12.5 mg-160 mg oral [...] most pronounced on the right at L5-S1. Vital Signs Most recent to oldest [Reference Range]: 1 Height 183 cm (03/14/23 3:51 PM) Weight 116.6 kg (03/14/23 3:51 PM) Oxygen Saturation [94-100 %] 97 % (03/14/23 3:51 PM) Pulse Rate [55-90 bpm] 79 bpm (03/14/23 3:51 PM) Body Mass Index [18.5-24.99 kg/m2] 34.82 kg/m2 *>HHI* (03/14/23 3:51 PM) Blood Pressure [90-138/55-84 mm Hg] 114/ 75mm Hg (03/14/23 3:51 PM) Mode of Delivery (Oxygen) Room air (03/14/23 3:51 PM) Blood pressure sites Arm, left (03/14/23 3:51 PM) Weight Obtained Via Standing scale (03/14/23 3:51 PM) Social History Social History Type Response Tobacco Other: quit igh t smoker. Sex Patient Care team information Care Team Personnel Name: Piotr CORDOVA, Juan Walker Position: S Physician - Primary Care Member Role: PCP Address: Address: [address] [place] [address]- Care Team Related Persons Name: BRET FREGOSO Name: CASANDRA SHERWOOD Address: home [address] [place] [address] Name: JUNE SHERWOOD Name: JYOTI DE LA CRUZ
--- OUTSIDE RECORDS SUMMARY | 2024-02-27 09:42 | XMS_ITS | Continuity of Care Document ---
Author Organization [facility] [place] Address [address] [place] [address]- Care Team Providers Care Savings Counselor Name Role Phone Piotr CORDOVA, Juan Walker Primary Care Physician Encounter [facility] Date(s): 11/27/22 - 12/27/22 [facility] Adult [address] [place] [address]- Allergies, Adverse Reactions, Alerts Substance Reaction Severity Status amLODIPine Active Immunizations Given and Recorded Vaccine Date Status Refusal Reason SARS-CoV-2 mRNA (ykgkikf-ddhy-qatkt) vax 1 02/21/22 Given Hepatitis A Adult Vaccine 2 02/21/22 Given Hepatitis A Adult Vaccine 3 08/24/21 Given hepatitis B adult vaccine 4 09/25/21 Given hepatitis B adult vaccine 5 08/24/21 Given SARS-CoV-2 (COVID-19) Ad26 vaccine 11/22/20 Record ed SARS-CoV-2 (COVID-19) Ad26 vaccine 11/22/20 Record ed tetanus/diphtheria/pertussis, acel(Tdap) 07/21/18 Given 1Result Comment: [facility]-[id number] 2Result Comment: [facility]-[id number] 3Result Comment: [id number] 4Result Comment: [id number] 5Result Comment: [id number] Medications hydrochlorothiazide-valsartan 12.5 mg-160 mg oral tablet 1 tablet, By Mouth, Daily, # 90 tablet, 3 Refills, Maintenance, 12/05/22 11:40:00 EDT, Tablet, [id number], Partial fill upon patient request if the prescription is for a schedule II opioid drug., 1 tablet By Mouth Daily,x90 days, 183, cm, 10/18... Start Date: 12/05/22 Stop Date: 11/30/23 Status: [...] Personnel Name: Piotr CORDOVA, Juan Walker Position: [facility] Primary Care Physician Member Role: PCP Address: Address: [address] [place] [address]- Care Team Related Persons Name: BERT FREGOSO Name: CASANDRA SHERWOOD Address: home [address] [place] [place] [address] Name: JUNE SHERWOOD Name: JYOTI DE LA CRUZ
--- OUTSIDE RECORDS SUMMARY | 2024-02-27 09:42 | XMS_ITS | Continuity of Care Document ---
Author Organization [facility] [place] Address [address] [place] [address]- Care Team Providers Care Core Oven Tender Name Role Phone Piotr CORDOVA, Juan Walker Primary Care Physician [phone] Encounter [facility] Date(s): 07/11/22 - 08/10/22 [facility] Adult [address] [place] [address]- Allergies, Adverse Reactions, Alerts Substance Reaction Severity Status amLODIPine Active Immunizations Given and Recorded Vaccine Date Status Refusal Reason SARS-CoV-2 mRNA (jidlmlp-jqze-nxnad) vax 1 02/21/22 Given Hepatitis A Adult Vaccine 2 02/21/22 Given Hepatitis A Adult Vaccine 3 08/24/21 Given hepatitis B adult vaccine 4 09/25/21 Given hepatitis B adult vaccine 5 08/24/21 Given SARS-CoV-2 (COVID-19) Ad26 vaccine 11/22/20 Record ed SARS-CoV-2 (COVID-19) Ad26 vaccine 11/22/20 Record ed tetanus/diphtheria/pertussis, acel(Tdap) 07/21/18 Given 1Result Comment: [facility]-[id number] 2Result Comment: [facility]-[id number] 3Result Comment: [id number] 4Result Comment: [id number] 5Result Comment: [id number] Medications hydrochlorothiazide-valsartan 12.5 mg-160 mg oral tablet 1 tablet, By Mouth, Daily, # 30 tablet, 5 Refills, Maintenance, 04/13/22 11:28:00 EDT, Tablet, [id number], Partial fill upon patient request if the prescription is for a schedule II opioid drug., 1 tablet By Mouth Daily, 183, cm, 04/13/22 11:0... Start Date: 04/13/22 Status: Ordered Vitamin D2 2000 intl units oral capsule 1 capsule = 50 mcg, By Mouth, Daily, 0 Refills, Maintenance, 12/20/21 5:53:00 EDT, Partial fill upon patient request if the prescription is for a schedule II opioid drug. Start Date: 12/20/21 Status: Ordered Problem List Condition Confirmation Course Effective Dates Status H ealth Status Informant Benign hypertension Confirmed Active Chronic back pain L5-S21 narrowing MRI 1 Confirmed 12/18/21 Active Cough ? stephanie Confirmed Active COVID-19 Confirmed 08/28/21 Active Low vitamin D level Confirmed 12/18/21 Active Ex-cigarette smoker Confirmed 04/26/21 Active Mold exposure Confirmed 04/26/21 Active History of COVID-07 OCT 2021 Confirmed Active H/O total hip arthroplasty left apr 2022 Confirmed Active Mitral prolapse.MR ECHO 2020 Confirmed 04/26/21 Active Obese class I Confirmed Active Osteoarthritis of left hip advanced/preop Confirmed Active Plantar fasciitis Confirmed Active Allergic rhinitis, seasonal Confirmed Active Fatty liver Confirmed 08/07/21 Active 1Degenerative changes of the lumbar spine without nerve root impingement. Foraminal narrowing is most pronounced on the right at L5-S1. Social History Social History Type Response Tobacco Other: quit igh t smoker. Sex Patient Care team information Care Team Personnel Name: Juan Saldaña MD Position: [facility] Primary Care Physician Member Role: PCP Address: Address: [address] [place] [address]- Care Team Related Persons Name: BERT FREGOSO Name: CASANDRA SHERWOOD Address: home [address] [place] [address] Name: JUNE SHERWOOD Name: JYOTI DE LA CRUZ
--- OUTSIDE RECORDS SUMMARY | 2024-02-27 09:42 | XMS_ITS | Continuity of Care Document ---
Author Organization [facility] [place] Address [address] [place] [address]- Care Team Providers Care Bread Slicer Machine Name Role Phone Pilar CORDOVA, Spencer Butler Primary Care Physician [phone] Encounter [facility] Date(s): 07/05/21 - 08/04/21 [facility] Adult [address] [place] [address]- Allergies, Adverse Reactions, Alerts No Known Medication [...]
--- OUTSIDE RECORDS SUMMARY | 2024-02-27 09:42 | XMS_ITS | Continuity of Care Document ---
Author Organization [facility] Address [address] [address]- Care Team Providers Care Repair Cameraman Name Role Phone Spencer Quezada MD Primary Care Physician Encounter [facility] Date(s): 12/11/21 - 12/18/21 [place] [address], [place] [address]- Attending Physician: Sheila Choudhary Admitting Physician: Sheila Choudhary Referring Physician: Spencer Quezada MD Allergies, Adverse Reactions, Alerts Substance Reaction Severity Status amLODIPine Active Immunizations Given and Recorded Vaccine Date Status Refusal Reason hepatitis B adult vaccine 1 09/25/21 Given hepatitis B adult vaccine 2 08/24/21 Given Hepatitis A Adult Vaccine 3 08/24/21 Given SARS-CoV-2 (COVID-19) Ad26 vaccine 11/22/20 Record ed SARS-CoV-2 (COVID-19) Ad26 vaccine 11/22/20 Record ed tetanus/diphtheria/pertussis, acel(Tdap) 07/21/18 Given 1Result Comment: [facility]-[id number] 2Result Comment: [id number] 3Result Comment: [id number] Medications No Known Medications Problem List Condition Effective Dates Status Health Status Inform ant Benign hypertension(Confirmed) Active COVID-19(Confirmed) 08/28/21 Active Ex-cigarette smoker(Confirmed) 04/26/21 Active Mold exposure(Confirmed) 04/26/21 Active Mitral prolapse.MR ECHO 2020(Confirmed) 04/26/21 Active Neurogenic claudication/NEOS NOV 2021 refered MRI(Confirmed) Active Obese class I(Confirmed) Active Plantar fasciitis(Confirmed) Active Allergic rhinitis, seasonal(Confirmed) Active Fatty liver(Confirmed) 08/07/21 Active Vital Signs Most recent to oldest [Reference Range]: 1 Height 183 cm (12/11/21 3:40 PM) Weight 116.7 kg (12/11/21 3:40 PM) Oxygen Saturation [94-100 %] 99 % (12/11/21 3:40 PM) Pulse Rate [55-90 bpm] 95 bpm *H* (12/11/21 3:40 PM) Body Mass Index [18.5-24.99] 34.85 *>HHI* (12/11/21 3:40 PM) Blood Pressure [90-138/55-84 mm Hg] 146/ 75mm Hg *H* (12/11/21 3:40 PM) Mode of Delivery (Oxygen) Room air (12/11/21 3:40 PM) Blood pressure sites Arm, left (12/11/21 3:40 PM) Weight Obtained Via Standing scale (12/11/21 3:40 PM) Social History Social History Type Response Tobacco Use: 4 or less cigar ettes(less than 1/4 pack)/day in last 30 days, 1 pack a month since teens; . Sex
--- OUTSIDE RECORDS SUMMARY | 2024-02-27 09:42 | XMS_ITS | Continuity of Care Document ---
Author Organization [facility] [place] Address [address] [place] [address]- Care Team Providers Care Industrial Organizational Psychologist Name Role Phone Pilar CORDOVA, Spencer Butler Primary Care Physician [phone] Encounter [facility] Date(s): 09/25/21 - 10/25/21 [facility] Adult [address] [place] [address]- Attending Physician: AdmDeirdre mg Admitting Physician: AdmtrDeirdre Referring Physician: Admtr Ar8 Allergies, Adverse Reactions, [...] ed tetanus/diphtheria/pertussis, acel(Tdap) 07/21/18 Given 1Result Comment: [id number] 2Result Comment: [id number] 3Result Comment: [id number] Medications Azithromycin 5 Day Dose Pack 250 mg oral tablet 1 pack/packet, By Mouth, Once, as directed on package labeling, # 6 tablet, 0 Refills, Soft Stop, 09/25/21 16:01:00 EST, Tablet, [id number], 183, cm, 09/25/21 15:49:00 EST, Height Start Date: 09/25/21 Status: Ordered Problem List Condition Effective Dates Status Health Status Inform ant Benign hypertension(Confirmed) Active COVID-19(Confirmed) 08/28/21 Active Ex-cigarette smoker(Confirmed) 04/26/21 Active Mold exposure(Confirmed) 04/26/21 Active Mitral prolapse.MR ECHO 2020(Confirmed) 04/26/21 Active Obese class II(Confirmed) Active Plantar fasciitis(Confirmed) Active Allergic rhinitis, seasonal(Confirmed) Active Fatty liver(Confirmed) 08/07/21 Active Social History Social History Type Response Tobacco Use: 4 or less cigar ettes(less than 1/4 pack)/day in last 30 days, 1 pack a month since teens; . Sex
--- OUTSIDE RECORDS SUMMARY | 2024-02-27 09:42 | XMS_ITS | Continuity of Care Document ---
Author Organization [facility] Clay Franklyn lt Address [address] [place] [address]- Care Team Providers Care Dairy Truck Driver Name Role Phone Pilar CORDOVA, Spencer Butler Primary Care Physician [phone] Encounter [facility] [place] Date(s): 04/13/22 - 04/20/22 [facility] Adult [address] [place] [address]- Encounter Diagnosis Preop examination(Discharge Diagnosis) - 04/09/22 Osteoarthritis of left hip advanced/preop(Discharge Diagnosis) - 04/09/22 Benign hypertension(Discharge Diagnosis) - 04/09/22 Fatty liver(Discharge Diagnosis) - 04/09/22 Mitral prolapse.MR ECHO 2020(Discharge Diagnosis) - 04/09/22 Cough ? stephanie(Discharge Diagnosis) - 04/13/22 Adverse drug effect(Discharge Diagnosis) - 04/13/22 Attending Physician: Spencer Quezada MD Referring Physician: Abhinav Lawson MD Allergies, Adverse Reactions, Alerts Substance Reaction Severity Status amLODIPine Active Immunizations Given and Recorded Vaccine Date Status Refusal Reason SARS-CoV-2 mRNA (xrkrufc-vfby-wrpfj) vax 1 02/21/22 Given Hepatitis A Adult Vaccine 2 02/21/22 Given Hepatitis A Adult Vaccine 3 08/24/21 Given hepatitis B adult vaccine 4 09/25/21 Given hepatitis B adult vaccine 5 08/24/21 Given SARS-CoV-2 (COVID-19) Ad26 vaccine 11/22/20 Record ed SARS-CoV-2 (COVID-19) Ad26 vaccine 11/22/20 Record ed tetanus/diphtheria/pertussis, acel(Tdap) 07/21/18 Given 1Result Comment: [facility]-[id number] 2Result Comment: [facility]-[id number] 3Result Comment: [id number] 4Result Comment: [facility]-[id number] 5Result Comment: [facility]-[id number] Medications hydrochlorothiazide-valsartan 12.5 mg-160 mg oral tablet 1 tablet, By Mouth, Daily, # 30 tablet, 5 Refills, Maintenance, 04/13/22 11:28:00 EDT, Tablet, [facility]/pharm[facility] #[id number], Partial fill upon patient request if [...] L5-S21 hna rrowing MRI(Confirmed) 1 12/18/21 Active Cough ? stephanie(Confirmed) Active COVID-19(Confirmed) 08/28/21 Active Low vitamin D level(Confirmed) 12/18/21 Active Ex-cigarette smoker(Confirmed) 04/26/21 Active Mold exposure(Confirmed) 04/26/21 Active History of COVID-07 OCT 2021(Confirmed) Active Mitral prolapse.MR ECHO 2020(Confirmed) 04/26/21 Active Obese class I(Confirmed) Active Osteoarthritis of left hip advanced/preop(Confirmed) Active Plantar fasciitis(Confirmed) Active Allergic rhinitis, seasonal(Confirmed) Active Fatty liver(Confirmed) 08/07/21 Active 1Degenerative changes of the lumbar spine without nerve root impingement. Foraminal narrowing is most pronounced on the right at L5-S1. Diagnosis Diagnosis Type Effective Dates Health Status Clinical Service Informant Preop examination Discharge Diagnosis 04/09/22 Osteoarthritis of left hip advanced/preop Discharge Diagnosis 04/09/22 Benign hypertension Discharge Diagnosis 04/09/22 Fatty liver Discharge Diagnosis 04/09/22 Mitral prolapse.MR ECHO 2020 Discharge Diagnosis 04/09/22 Cough ? stephanie Discharge Diagnosis 04/13/22 Adverse drug effect Discharge Diagnosis 04/13/22 Procedures Procedure Date Related Diagnosis Body Site Status MRI of lumbar spine djd l5-1 foraminal narrowing 1 12/01/21 Completed 1Degenerative changes of the lumbar spine without nerve root impingement. Foraminal narrowing is most pronounced on the right at L5-S1. Vital Signs Most recent to oldest [Reference Range]: 1 Height 183 cm (04/13/22 11:00 AM) Weight 116.1 kg (04/13/22 11:00 AM) Oxygen Saturation [94-100 %] 100 % (04/13/22 11:00 AM) Pulse Rate [55-90 bpm] 92 bpm *H* (04/13/22 11:00 AM) Body Mass Index [18.5-24.99] 34.67 *>HHI* (04/13/22 11:00 AM) Blood Pressure [90-138/55-84 mm Hg] 121/ 78mm Hg (04/13/22 11:00 AM) Respiratory Rate [16-30 br/min] 16 br/mi n (04/13/22 11:00 AM) Temperature [96.8-100.4 DegF] 98.1 DegF (04/13/22 11:00 AM) Mode of Delivery (Oxygen) Room air (04/13/22 11:00 AM) Blood pressure sites Arm, left (04/13/22 11:00 AM) Temperature Route Oral (04/13/22 11:00 AM) Weight Obtained Via Standing scale (04/13/22 11:00 AM) Social History Social History Type Response Tobacco Other: quit igh t smoker. Sex Care Team Personnel Name: Pilar CORDOVA, Spencer Butler Address: [address] [place] [address] [place] [address]-
--- OUTSIDE RECORDS SUMMARY | 2024-02-27 09:42 | XMS_ITS | Continuity of Care Document ---
Author Organization [facility] Clay Franklyn lt Address [address] [place] [address]- Care Team Providers Care Cake Tester Name Role Phone Piotr CORDOVA, Juan Walker Primary Care Physician [facility]counter [facility] Date(s): 12/03/23 - 01/02/24 [facility] Adult [address] [place] [address]- Allergies, Adverse Reactions, Alerts Substance Reaction Severity Status amoxicillin Active amLODIPine Active Immunizations Given and Recorded Vaccine Date Status Refusal Reason SARS-CoV-2 mRNA (sivuwry-afup-jsuzm) vax 1 02/21/22 Given Hepatitis A Adult Vaccine 2 02/21/22 Given Hepatitis A Adult Vaccine 3 08/24/21 Given hepatitis B adult vaccine 4 09/25/21 Given hepatitis B adult vaccine 5 08/24/21 Given SARS-CoV-2 (COVID-19) Ad26 vaccine 11/22/20 Record ed SARS-CoV-2 (COVID-19) Ad26 vaccine 11/22/20 Record ed tetanus/diphtheria/pertussis, acel(Tdap) 07/21/18 Given 1Result Comment: [facility]-[id number] 2Result Comment: [facility]-[id number] 3Result Comment: [id number] 4Result Comment: [id number] 5Result Comment: [id number] Medications hydrochlorothiazide-valsartan 12.5 mg-160 mg oral tablet 1 tablet, By Mouth, Daily, for 90 days, # 90 tablet, 1 Refills, Hard Stop 04/05/24 12:27:00 EDT, 10/08/23 12:27:00 EST, Tablet, [id number], Partial fill upon patient request if the [...] Team Personnel Name: Juan Saldaña MD Position: [facility] Physician - Primary Care Member Role: PCP Address: Address: [address] [place] [address]- Care Team Related Persons Name: BERT SAINZ Address: [facility] [place] [address] Name: CASANDRA SHERWOOD Address: home [address] [place] [address] Name: JUNE SHERWOOD Name: JYOTI DE LA CRUZ
--- OUTSIDE RECORDS SUMMARY | 2024-02-27 09:42 | XMS_ITS | Continuity of Care Document ---
Author Organization [facility] Clay Franklyn lt Address [address] [place] [address]- Care Team Providers Care Show Card Writer Name Role Phone Spencer Quezada MD Primary Care Physician Encounter [facility] [place] Date(s): 02/21/22 - 02/28/22 [facility] Adult [address] [place] [address]- Attending Physician: Spencer Quezada MD Allergies, Adverse Reactions, Alerts Substance Reaction Severity Status amLODIPine Active Immunizations Given and Recorded Vaccine Date Status Refusal Reason SARS-CoV-2 mRNA (nhxvvpy-idqu-xhsaq) vax 1 02/21/22 Given Hepatitis A Adult Vaccine 2 02/21/22 Given Hepatitis A Adult Vaccine 3 08/24/21 Given hepatitis B adult vaccine 4 09/25/21 Given hepatitis B adult vaccine 5 08/24/21 Given SARS-CoV-2 (COVID-19) Ad26 vaccine 11/22/20 Record ed SARS-CoV-2 (COVID-19) Ad26 vaccine 11/22/20 Record ed tetanus/diphtheria/pertussis, acel(Tdap) 07/21/18 Given 1Result Comment: [id number] 2Result Comment: [facility]-[id number] 3Result Comment: [id number] 4Result Comment: [id number] 5Result Comment: [id number] Medications predniSONE 20 mg oral tablet 1 tablet = 20 mg, By Mouth, 2 times a day, with food or milk, # 20 tablet, 0 Refills, Maintenance, 01/31/22 10:01:00 EDT, Tablet, [id number], Partial fill upon patient request if the prescription is for a schedule II opioid drug., 183, cm, ... Start Date: 01/31/22 Status: Ordered Vitamin D2 2000 intl units [...] Most recent to oldest [Reference Range]: 1 Temperature [96.8-100.4 DegF] 98.2 DegF (02/21/22 2:51 PM) Temperature Route Oral (02/21/22 2:51 PM) Social History Social History Type Response Tobacco Other: quit igh t smoker. Sex
--- OUTSIDE RECORDS SUMMARY | 2024-02-27 09:42 | XMS_ITS | Continuity of Care Document ---
Author Organization [facility] y Address [address] [place] [address] liz, [address] [place] [address]- Care Team Providers Care Dust Sampler Name Role Phone Juan Saldaña MD Primary Care Physician [phone] Encounter [facility] [place] Date(s): 07/29/23 - 11/09/[address], [address] [place], [place] [address] Attending Physician: Sarbjit Grover MD Referring Physician: Juan Saldaña MD Allergies, Adverse Reactions, Alerts Substance Reaction Severity Status amoxicillin Active amLODIPine Active Immunizations Given and Recorded Vaccine Date Status Refusal Reason SARS-CoV-2 mRNA (cjdhlak-tbfd-ciwzc) vax 1 02/21/22 Given Hepatitis A Adult Vaccine 2 02/21/22 Given Hepatitis A Adult Vaccine 3 08/24/21 Given hepatitis B adult vaccine 4 09/25/21 Given hepatitis B adult vaccine 5 08/24/21 Given SARS-CoV-2 (COVID-19) Ad26 vaccine 11/22/20 Record ed SARS-CoV-2 (COVID-19) Ad26 vaccine 11/22/20 Record ed tetanus/diphtheria/pertussis, acel(Tdap) 07/21/18 Given 1Result Comment: [facility]-[id number] 2Result Comment: [facility]-[id number] 3Result Comment: [id number] 4Result Comment: [facility]-[id number] 5Result Comment: [facility]-[id number] Medications hydrochlorothiazide-valsartan 12.5 mg-160 mg oral tablet 1 tablet, By Mouth, Daily, for 90 days, # 90 tablet, 1 Refills, Hard Stop 04/05/24 12:27:00 EDT, 02/20/24 12:27:00 EST, Tablet, [id number], Partial fill upon patient [...] Primary Care Member Role: PCP Address: Address: [address] [place] [address]- Care Team Related Persons Name: BERT SAINZ Address: [facility] [place] [address] Name: CASANDRA SHERWOOD Address: home [address] [place] [address] Name: JUNE SHERWOOD Name: JYOTI DE LA CRUZ
--- OUTSIDE RECORDS SUMMARY | 2024-02-27 09:43 | XMS_ITS | Continuity of Care Document ---
Author Organization [facility] Clay Franklyn lt Address [address] [place] [address]- Care Team Providers Care Certified Prosthetist Vice President Name Role Phone Spencer Quezada MD Primary Care Physician [place] [facility] [place]08[place]21 - 06/15/21 [facility] Adult [address] [place] [address]- Encounter Diagnosis Erythrocytosis(Discharge Diagnosis) - 06/05/21 Abnormal liver enzymes(Discharge Diagnosis) - 06/05/21 Cigarette smoker refer quitnow(Discharge Diagnosis) - 06/05/21 Allergic rhinitis, seasonal(Discharge Diagnosis) - 06/08/21 Attending Physician: Spencer Quezada MD Allergies, Adverse [...] liver enzymes(Confirmed) 04/26/21 Active Plantar fasciitis(Confirmed) Active Allergic rhinitis, seasonal(Confirmed) Active Diagnosis Diagnosis Type Effective Dates Health Status Clinical Service Informant Erythrocytosis Discharge Diagnosis 06/05/21 Abnormal liver enzymes Discharge Diagnosis 06/05/21 Cigarette smoker refer quitnow Discharge Diagnosis 06/05/21 Allergic rhinitis, seasonal Discharge Diagnosis 06/08/21 Vital Signs Most recent to oldest [Reference Range]: 1 Height 183 cm (06/08/21 4:01 PM) Weight 113.2 kg (06/08/21 4:01 PM) Oxygen Saturation [94-100 %] 98 % (06/08/21 4:01 PM) Pulse Rate [55-90 bpm] 98 bpm *H* (06/08/21 4:01 PM) Body Mass Index [18.5-24.99] 33.8 *>HHI* (06/08/21 4:01 PM) Blood Pressure [90-138/55-84 mm Hg] 136/ 71mm Hg (06/08/21 4:01 PM) Respiratory Rate [16-30 br/min] 16 br/mi n (06/08/21 4:01 PM) Temperature [96.8-100.4 DegF] 98.0 DegF (06/08/21 4:01 PM) Mode of Delivery (Oxygen) Room air (06/08/21 4:01 PM) Blood pressure sites Arm, left (06/08/21 4:01 PM) Temperature Route Axillary (06/08/21 4:01 PM) Weight Obtained Via Standing scale (06/08/21 4:01 PM) Social History Social History Type Response Tobacco Use: 4 or less cigar ettes(less than 1/4 pack)/day in last 30 days, 1 pack a month since teens; . Sex
--- OUTSIDE RECORDS SUMMARY | 2024-02-27 09:43 | XMS_ITS | Continuity of Care Document ---
Author Organization [facility] Address [address] [address]- Care Team Providers Care Cross Tie Turner Name Role Phone Piotr CORDOVA, Juan Walker Primary Care Physician Encounter [facility] [place] Date(s): 07/09/22 - 08/08/22 [facility] [address] [address] [place] Allergies, Adverse Reactions, Alerts Substance Reaction Severity Status amLODIPine Active Immunizations Given and Recorded Vaccine Date Status Refusal Reason SARS-CoV-2 mRNA (rfiitkb-gfsi-mjldh) vax 1 02/21/22 Given Hepatitis A Adult Vaccine 2 02/21/22 Given Hepatitis A Adult Vaccine 3 08/24/21 Given hepatitis B adult vaccine 4 09/25/21 Given hepatitis B adult vaccine 5 08/24/21 Given SARS-CoV-2 (COVID-19) Ad26 vaccine 11/22/20 Record ed SARS-CoV-2 (COVID-19) Ad26 vaccine 11/22/20 Record ed tetanus/diphtheria/pertussis, acel(Tdap) 07/21/18 Given 1Result Comment: [facility]-[id number] 2Result Comment: [facility]-[id number] 3Result Comment: [id number] 4Result Comment: [facility]-[id number] 5Result Comment: [id number] Medications hydrochlorothiazide-valsartan 12.5 mg-160 mg oral tablet 1 tablet, By Mouth, Daily, # 30 tablet, 5 Refills, Maintenance, 04/13/22 11:28:00 EDT, Tablet, [id number], Partial fill upon [...] Team Personnel Name: Juan Saldaña MD Position: S Primary Care Physician Member Role: PCP Address: Address: [address] [place] [address]- Care Team Related Persons Name: BERT FREGOSO Name: CASANDRA SHERWOOD Address: home [address] [place] [address] Name: JUNE SHERWOOD Name: JYOTI DE LA CRUZ
--- OUTSIDE RECORDS SUMMARY | 2024-02-27 09:43 | XMS_ITS | Continuity of Care Document ---
Author Organization [facility] Clay Franklyn lt Address [address] [place] [address]- Care Team Providers Care Cray Fishing Hand Name Role Phone Piotr CORDOVA, Juan Walker Primary Care Physician [phone] Encounter [facility] Date(s): 08/17/22 - 09/16/22 [facility] Mohan Williamson Adult [address] [place] [address]- Allergies, Adverse Reactions, Alerts Substance Reaction Severity Status amLODIPine Active Immunizations Given and Recorded Vaccine Date Status Refusal Reason SARS-CoV-2 mRNA (ncdydqg-kjnx-owchd) vax 1 02/21/22 Given Hepatitis A Adult Vaccine 2 02/21/22 Given Hepatitis A Adult Vaccine 3 08/24/21 Given hepatitis B adult vaccine 4 09/25/21 Given hepatitis B adult vaccine 5 08/24/21 Given SARS-CoV-2 (COVID-19) Ad26 vaccine 11/22/20 Record ed SARS-CoV-2 (COVID-19) Ad26 vaccine 11/22/20 Record ed tetanus/diphtheria/pertussis, acel(Tdap) 07/21/18 Given 1Result Comment: [facility]-[id number] 2Result Comment: [facility]-[id number] 3Result Comment: [id number] 4Result Comment: [id number] 5Result Comment: [id number] Medications hydrochlorothiazide-valsartan 12.5 mg-160 mg oral tablet 1 tablet, By Mouth, Daily, # 30 tablet, 5 Refills, Maintenance, 04/13/22 11:28:00 EDT, Tablet, [id number], Partial fill upon patient request if [...] Care Physician Member Role: PCP Address: Address: [address] [place] [address]- Care Team Related Persons Name: BERT FREGOSO Name: CASANDRA SHERWOOD Address: home [address] [place] [address] Name: JUNE SHERWOOD Name: JYOTI DE LA CRUZ
--- OUTSIDE RECORDS SUMMARY | 2024-02-27 09:43 | XMS_ITS | Continuity of Care Document ---
Author Organization [facility] Clay Franklyn lt Address [address] [place] [address]- Care Team Providers Care Circular Sawyer Stone Name Role Phone Piotr CORDOVA, Juan Walker Primary Care Physician [phone] Encounter [facility] Date(s): 08/21/22 - 09/20/22 [facility] Mohan Williamson Adult [address] [place] [address]- Allergies, Adverse Reactions, Alerts Substance Reaction Severity Status amLODIPine Active Immunizations Given and Recorded Vaccine Date Status Refusal Reason SARS-CoV-2 mRNA (qsymtag-xzie-kuubr) vax 1 02/21/22 Given Hepatitis A Adult Vaccine 2 02/21/22 Given Hepatitis A Adult Vaccine 3 08/24/21 Given hepatitis B adult vaccine 4 09/25/21 Given hepatitis B adult vaccine 5 08/24/21 Given SARS-CoV-2 (COVID-19) Ad26 vaccine 11/22/20 Record ed SARS-CoV-2 (COVID-19) Ad26 vaccine 11/22/20 Record ed tetanus/diphtheria/pertussis, acel(Tdap) 07/21/18 Given 1Result Comment: [facility]-[id number] 2Result Comment: [facility]-[id number] 3Result Comment: [id number] 4Result Comment: [facility]-[id number] 5Result Comment: [id number] Medications hydrochlorothiazide-valsartan 12.5 mg-160 mg oral tablet 1 tablet, By Mouth, Daily, # 30 tablet, 5 Refills, Maintenance, 04/13/22 11:28:00 EDT, Tablet, [id number], Partial fill upon patient request if the [...] Care Physician Member Role: PCP Address: Address: [address] [place] [address]- Care Team Related Persons Name: BERT FREGOSO Name: CASANDRA SHERWOOD Address: home [address] [place] [address] Name: JUNE SHERWOOD Name: JYOTI DE LA CRUZ
--- OUTSIDE RECORDS SUMMARY | 2024-02-27 09:43 | XMS_ITS | Continuity of Care Document ---
Author Organization [facility] Clay Franklyn lt Address [address] [place] [address]- Care Team Providers Care Textile Technologist Name Role Phone Pilar CORDOVA, Spencer Butler Primary Care Physician [facility] Date(s): 05/01/21 - 05/31/21 [facility] Adult [address] [place] [address]- Allergies, Adverse Reactions, Alerts No Known Medication [...] liver enzymes(Confirmed) 04/26/21 Active Plantar fasciitis(Confirmed) Active Social History Social History Type Response Tobacco Use: 4 or less cigar ettes(less than 1/4 pack)/day in last 30 days, 1 pack a month since teens; . Sex
--- OUTSIDE RECORDS SUMMARY | 2024-02-27 09:43 | XMS_ITS | Continuity of Care Document ---
Author Organization [facility] Clay Franklyn lt Address [address] [place] [address]- Care Team Providers Care Sonar Watchstander Name Role Phone Pilar CORDOVA, Spencer Butler Primary Care Physician Encounter [facility] Date(s): 08/22/21 - 09/21/21 [facility] Adult [address] [place] [address]- Allergies, Adverse Reactions, Alerts Substance Reaction Severity Status amLODIPine Active Immunizations Given and Recorded Vaccine Date Status Refusal Reason hepatitis B adult vaccine 1 08/24/21 Given Hepatitis A Adult Vaccine 2 08/24/21 Given SARS-CoV-2 (COVID-19) Ad26 vaccine 11/22/20 Record ed SARS-CoV-2 (COVID-19) Ad26 vaccine 11/22/20 Record ed tetanus/diphtheria/pertussis, acel(Tdap) 07/21/18 Given 1Result Comment: [id number] 2Result Comment: [id number] Problem List Condition Effective Dates Status Health Status Inform ant Benign hypertension(Confirmed) Active Cigarette smoker refer quitnow(Confirmed) 04/26/21 Active COVID-19(Confirmed) 08/28/21 Active Mold exposure(Confirmed) 04/26/21 Active Mitral prolapse.MR ECHO 2020(Confirmed) 04/26/21 Active Plantar fasciitis(Confirmed) Active Allergic rhinitis, seasonal(Confirmed) Active Fatty liver(Confirmed) 08/07/21 Active Social History Social History Type Response Tobacco Use: 4 or less cigar ettes(less than 1/4 pack)/day in last 30 days, 1 pack a month since teens; . Sex
--- OUTSIDE RECORDS SUMMARY | 2024-02-27 09:43 | XMS_ITS | Continuity of Care Document ---
Author Organization [facility] Clay Franklyn Address [address] [place] [address]- Care Team Providers Care Emergency Care Tech Name Role Phone Piotr CORDOVA, Juan Walker Primary Care Physician Encounter [facility] [place] Date(s): 10/14/23 - 11/13/23 [facility] Adult [address] [place] [address]- Allergies, Adverse Reactions, Alerts Substance Reaction Severity Status amoxicillin Active amLODIPine Active Immunizations Given and Recorded Vaccine Date Status Refusal Reason SARS-CoV-2 mRNA (usbnmsn-tfsl-uacvk) vax 1 02/21/22 Given Hepatitis A Adult Vaccine 2 02/21/22 Given Hepatitis A Adult Vaccine 3 08/24/21 Given hepatitis B adult vaccine 4 09/25/21 Given hepatitis B adult vaccine 5 08/24/21 Given SARS-CoV-2 (COVID-19) Ad26 vaccine 11/22/20 Record ed SARS-CoV-2 (COVID-19) Ad26 vaccine 11/22/20 Record ed tetanus/diphtheria/pertussis, acel(Tdap) 07/21/18 Given 1Result Comment: [facility]-[id number] 2Result Comment: [id number] 3Result Comment: [id number] 4Result Comment: [id number] 5Result Comment: [id number] Medications hydrochlorothiazide-valsartan 12.5 mg-160 mg oral tablet 1 tablet, By Mouth, Daily, for 90 days, # 90 tablet, 1 Refills, Hard Stop 04/05/24 12:27:00 EDT, 10/08/23 12:27:00 EST, Tablet, [id number], Partial fill upon patient request if the [...] Personnel Name: Piotr CORDOVA, Juan Walker Position: [facility] Physician - Primary Care Member Role: PCP Address: Address: [address] [place] [address]- Care Team Related Persons Name: BERT SAINZ Address: [facility] [place] [address] Name: CASANDRA SHERWOOD Address: [address] [address] Name: JUNE SHERWOOD Name: JYOTI DE LA CRUZ
--- OUTSIDE RECORDS SUMMARY | 2024-02-27 09:43 | XMS_ITS | Continuity of Care Document ---
Author Organization [facility] Clay Franklyn lt Address [address] [place] [address]- Care Team Providers Care Wetlands Technician Name Role Phone Pilar CORDOVA, Spencer Butler Primary Care Physician Encounter [facility] Date(s): 08/10/21 - 09/15/21 [facility] Adult [address] [place] [address]- Attending Physician: Spencer Quezada MD Allergies, Adverse Reactions, Alerts No Known Medication Allergies Immunizations Given and Recorded Vaccine Date Status Refusal Reason hepatitis B adult vaccine 1 08/24/21 Given Hepatitis A Adult Vaccine 2 08/24/21 Given SARS-CoV-2 (COVID-19) Ad26 vaccine 11/22/20 Record ed SARS-CoV-2 (COVID-19) Ad26 vaccine 11/22/20 Record ed tetanus/diphtheria/pertussis, acel(Tdap) 07/21/18 Given 1Result Comment: [id number] 2Result Comment: [id number] Problem List Condition Effective Dates Status Health [...]
--- OUTSIDE RECORDS SUMMARY | 2024-02-27 09:43 | XMS_ITS | Continuity of Care Document ---
Author Organization [facility] Mohan Williamson Frank[place] lt Address [address] [place] [address]- Care Team Providers Care Station Attendant Name Role Phone Spencer Quezada MD Primary Care Physician Encounter [facility] Date(s): 03/28/22 - 04/04/22 [facility] Adult [address] [place] [address]- Encounter Diagnosis Benign hypertension(Discharge Diagnosis) - 03/28/22 Neck pain(Discharge Diagnosis) - 03/28/22 Attending Physician: Spencer Quezada MD Allergies, Adverse Reactions, Alerts Substance Reaction Severity Status amLODIPine Active Immunizations Given and Recorded Vaccine Date Status Refusal Reason SARS-CoV-2 mRNA (qchkuks-zpzt-udyoc) vax 1 02/21/22 Given Hepatitis A Adult Vaccine 2 02/21/22 Given Hepatitis A Adult Vaccine 3 08/24/21 Given hepatitis B adult vaccine 4 09/25/21 Given hepatitis B adult vaccine 5 08/24/21 Given SARS-CoV-2 (COVID-19) Ad26 vaccine 11/22/20 Record ed SARS-CoV-2 (COVID-19) Ad26 vaccine 11/22/20 Record ed tetanus/diphtheria/pertussis, acel(Tdap) 07/21/18 Given 1Result Comment: [facility]-[id number] 2Result Comment: [facility]-[id number] 3Result Comment: [id number] 4Result Comment: [id number] 5Result Comment: [id number] Medications Vitamin D2 2000 intl units oral [...] Effective Dates Health Status Clinical Service Informant Benign hypertension Discharge Diagnosis 03/28/22 Neck pain Discharge Diagnosis 03/28/22 Vital Signs Most recent to oldest [Reference Range]: 1 Height 183 cm (03/28/22 3:43 PM) Weight 117.3 kg (03/28/22 3:43 PM) Oxygen Saturation [94-100 %] 98 % (03/28/22 3:43 PM) Pulse Rate [55-90 bpm] 84 bpm (03/28/22 3:43 PM) Body Mass Index [18.5-24.99] 35.03 *>HHI* (03/28/22 3:43 PM) Blood Pressure [90-138/55-84 mm Hg] 123/ 70mm Hg (03/28/22 3:43 PM) Respiratory Rate [16-30 br/min] 16 br/mi n (03/28/22 3:43 PM) Temperature [96.8-100.4 DegF] 98.4 DegF (03/28/22 3:43 PM) Mode of Delivery (Oxygen) Room air (03/28/22 3:43 PM) Blood pressure sites Arm, left (03/28/22 3:43 PM) Temperature Route Oral (03/28/22 3:43 PM) Weight Obtained Via Standing scale (03/28/22 3:43 PM) Social History Social History Type Response Tobacco Other: quit t smoker. Sex
--- OUTSIDE RECORDS SUMMARY | 2024-02-27 09:43 | XMS_ITS | Continuity of Care Document ---
Author Organization [facility] Frank[place] lt Address [address] [place] [address]- Care Team Providers Care Short Filler Bunch Machine Operator Name Role Phone Piotr CORDOVA, Juan Walker Primary Care Physician [facility]counter [facility] Date(s): 06/25/23 - 07/25/23 [facility] Adult [address] [place] [address]- Allergies, Adverse Reactions, Alerts Substance Reaction Severity Status amLODIPine Active Immunizations Given and Recorded Vaccine Date Status Refusal Reason SARS-CoV-2 mRNA (sdchvct-gova-dbzvx) vax 1 02/21/22 Given Hepatitis A Adult Vaccine 2 02/21/22 Given Hepatitis A Adult Vaccine 3 08/24/21 Given hepatitis B adult vaccine 4 09/25/21 Given hepatitis B adult vaccine 5 08/24/21 Given SARS-CoV-2 (COVID-19) Ad26 vaccine 11/22/20 Record ed SARS-CoV-2 (COVID-19) Ad26 vaccine 11/22/20 Record ed tetanus/diphtheria/pertussis, acel(Tdap) 07/21/18 Given 1Result Comment: [facility]-[id number] 2Result Comment: [facility]-[id number] 3Result Comment: [id number] 4Result Comment: [id number] 5Result Comment: [id number] Medications hydrochlorothiazide-valsartan 12.5 mg-160 mg oral tablet 1 tablet, By Mouth, Daily, for 90 days, # 90 tablet, 3 Refills, Hard Stop 11/30/23 11:40:00 EDT, 12/05/22 11:40:00 EDT, Tablet, [id number], Partial fill upon patient request if the [...] Team Personnel Name: Juan Saldaña MD Position: [facility] Physician - Primary Care Member Role: PCP Address: Address: [address] [place] [address]- Care Team Related Persons Name: BERT FREGOSO Name: CASANDRA SHERWOOD Address: home [address] [place] [address] Name: JUNE SHERWOOD Name: JYOTI DE LA CRUZ
--- OUTSIDE RECORDS SUMMARY | 2024-02-27 09:43 | XMS_ITS | Continuity of Care Document ---
Author Organization [facility] Address [address] [place] [address] [address], [address] [place] [address]- Care Team Providers Care Photo Tube Assembler Name Role Phone Piotr CORDOVA, Juan Walker Primary Care Physician [phone] Encounter [facility] Date(s): 08/07/23 - 09/06/[address], [address] [place], [place] [address] Allergies, Adverse Reactions, Alerts Substance Reaction Severity Status amoxicillin Active amLODIPine Active Immunizations Given and Recorded Vaccine Date Status Refusal Reason SARS-CoV-2 mRNA (ybltezk-ncxd-xylus) vax 1 02/21/22 Given Hepatitis A Adult Vaccine 2 02/21/22 Given Hepatitis A Adult Vaccine 3 08/24/21 Given hepatitis B adult vaccine 4 09/25/21 Given hepatitis B adult vaccine 5 08/24/21 Given SARS-CoV-2 (COVID-19) Ad26 vaccine 11/22/20 Record ed SARS-CoV-2 (COVID-19) Ad26 vaccine 11/22/20 Record ed tetanus/diphtheria/pertussis, acel(Tdap) 07/21/18 Given 1Result Comment: [facility]-[id number] 2Result Comment: [facility]-[id number] 3Result Comment: [id number] 4Result Comment: [facility]-[id number] 5Result Comment: [id number] Medications doxycycline monohydrate 100 mg oral capsule 0 Refills, Maintenance, 08/06/23 15:39:00 EST, Partial fill upon patient request if the prescription is for a schedule II opioid drug. Start Date: 08/06/23 Status: Ordered hydrochlorothiazide-valsartan 12.5 mg-160 mg oral tablet 1 tablet, By Mouth, Daily, for 90 days, # 90 tablet, 3 Refills, Hard Stop 11/30/23 11:40:00 EDT, 12/05/22 11:40:00 EDT, Tablet, [facility] #[id number], Partial fill upon patient request if [...] Personnel Name: Juan Saldaña MD Position: S Physician - Primary Care Member Role: PCP Address: Address: [address] [place] [address]- Care Team Related Persons Name: BERT FREGOSO Name: CASANDRA SHERWOOD Address: home [address] [place] [address] Name: JUNE SHERWOOD Name: JYOTI DE LA CRUZ
--- OUTSIDE RECORDS SUMMARY | 2024-02-27 09:43 | XMS_ITS | Continuity of Care Document ---
Author Organization [facility] Franklyn lt Address [address] [place] [address]- Care Team Providers Care Bulk Sausage Casing Tier Off Name Role Phone Juan Saldaña MD Primary Care Physician [phone] Encounter [facility] Date(s): 06/13/23 - 06/20/23 [facility] Adult [address] [place] [address]- Attending Physician: Juan Saldaña MD Allergies, Adverse Reactions, Alerts Substance Reaction Severity Status amLODIPine Active Immunizations Given and Recorded Vaccine Date Status Refusal Reason SARS-CoV-2 mRNA (uyiwzwl-nbwm-izxkj) vax 1 02/21/22 Given Hepatitis A Adult Vaccine 2 02/21/22 Given Hepatitis A Adult Vaccine 3 08/24/21 Given hepatitis B adult vaccine 4 09/25/21 Given hepatitis B adult vaccine 5 08/24/21 Given SARS-CoV-2 (COVID-19) Ad26 vaccine 11/22/20 Record ed SARS-CoV-2 (COVID-19) Ad26 vaccine 11/22/20 Record ed tetanus/diphtheria/pertussis, acel(Tdap) 07/21/18 Given 1Result Comment: [facility]-[id number] 2Result Comment: [facility]-[id number] 3Result Comment: [id number] 4Result Comment: [id number] 5Result Comment: [id number] Medications Azithromycin Maintenance, Prior to dental procedure, 06/13/23 12:51:00 EDT Start Date: 06/13/23 Status: Ordered clindamycin 1% topical lotion 1 application, Topically, 2 times a day, # 60 mL, 5 Refills, Maintenance, 03/20/23 6:15:00 EDT, Lotion, [id number], Partial fill upon patient request [...] EDT, 12/05/22 11:40:00 EDT, Tablet, [facility]/pharmacy #[id number], Partial fill upon patient request if [...] oldest [Reference Range]: 1 Height 183 cm (06/13/23 12:51 PM) Weight 115.6 kg (06/13/23 12:51 PM) Oxygen Saturation [94-100 %] 95 % (06/13/23 12:51 PM) Pulse Rate [55-90 bpm] 93 bpm *H* (06/13/23 12:51 PM) Body Mass Index [18.5-24.99 kg/m2] 34.52 kg/m2 *>HHI* (06/13/23 12:51 PM) Blood Pressure [90-138/55-84 mm Hg] 117/ 65mm Hg (06/13/23 12:51 PM) Mode of Delivery (Oxygen) Room air (06/13/23 12:51 PM) Blood pressure sites Arm, left (06/13/23 12:51 PM) Weight Obtained Via Standing scale (06/13/23 12:51 PM) Social History Social History Type Response Tobacco Other: quit igh t smoker. Sex Patient Care team information Care Team Personnel Name: Juan Saldaña MD Position: S Physician - Primary Care Member Role: PCP Address: Address: [address] [place] [address]- Care Team Related Persons Name: BERT FREGOSO Name: CASANDRA SHERWOOD Address: home [address] [place] [address] Name: JUNE SHERWOOD Name: JYOTI DE LA CRUZ
--- OUTSIDE RECORDS SUMMARY | 2024-02-27 09:43 | XMS_ITS | Continuity of Care Document ---
Author Organization [facility] Address [address] [address]- Care Team Providers Care Military Technician Name Role Phone Spencer Quezada MD Primary Care Physician [phone] Encounter [facility] Date(s): 09/20/21 - 09/27/21 [facility] [address] [address]- Attending Physician: Mariah Yarbrough MD Admitting Physician: [...] 1Result Comment: [facility]-[id number] 2Result Comment: [facility]-[id number] 3Result Comment: [id number] Medications Azithromycin 5 Day Dose Pack 250 [...]
--- OUTSIDE RECORDS SUMMARY | 2024-02-27 09:43 | XMS_ITS | Continuity of Care Document ---
Author Organization [facility] Address [address] [place] [address]- Care Team Providers Care Laboratory Apparatus Glass Blower Name Role Phone Piotr CORDOVA, Juan Walker Primary Care Physician Encounter [facility] Date(s): 01/27/24 - 02/26/24 [facility] [address] [place] [address]- [place] Allergies, Adverse Reactions, Alerts Substance Reaction Severity Status amoxicillin Active amLODIPine Active Immunizations Given and Recorded Vaccine Date Status Refusal Reason SARS-CoV-2 mRNA (vkqsani-vxeo-jgjau) vax 1 02/21/22 Given Hepatitis A Adult Vaccine 2 02/21/22 Given Hepatitis A Adult Vaccine 3 08/24/21 Given hepatitis B adult vaccine 4 09/25/21 Given hepatitis B adult vaccine 5 08/24/21 Given SARS-CoV-2 (COVID-19) Ad26 vaccine 11/22/20 Record ed SARS-CoV-2 (COVID-19) Ad26 vaccine 11/22/20 Record ed tetanus/diphtheria/pertussis, acel(Tdap) 07/21/18 Given 1Result Comment: [facility]-[id number] 2Result Comment: [facility]-[id number] 3Result Comment: [id number] 4Result Comment: [facility]-[id number] 5Result Comment: [id number] Medications hydrochlorothiazide-valsartan 12.5 mg-160 mg oral tablet 1 tablet, By Mouth, Daily, for 90 days, # 90 tablet, 1 Refills, Hard Stop 04/05/24 12:27:00 EDT, 10/08/23 12:27:00 EST, Tablet, [id number], Partial fill upon patient request if the prescription is for a schedule II opioid drug., 1 tablet By Mo... Start Date: 10/08/23 Stop Date: 04/05/24 Status: Ordered PEG-3350 with Electrolytes (Eqv-GoLYTELY) oral powder for reconstitution 240 mL, By Mouth, Every 15 minutes, split prep method 1st half 5 pm evening before , 2nd half 6 hours prior to procedure, # 1 each, 0 Refills, Maintenance, 01/27/24 10:21:00 EDT, [id number], Colonoscopy date 02/06/24 ; may substitute... Start Date: 01/27/24 Status: Ordered Problem List Condition Confirmation Course [...] Primary Care Member Role: PCP Address: Address: [address] [place] [address]- Care Team Related Persons Name: BERT SAINZ Address: [place] [address] Name: CASANDRA SHERWOOD Address: home [address] [place] [phone] Name: JUNE SHERWOOD Name: JYOTI DE LA CRUZ
--- OUTSIDE RECORDS SUMMARY | 2024-02-27 09:43 | XMS_ITS | Continuity of Care Document ---
Author Organization [facility] Frank[place] lt Address [address] [place] [address]- Care Team Providers Care Casino Manager Name Role Phone Pilar CORDOVA, Spencer Butler Primary Care Physician Encounter [facility] Date(s): 02/21/22 - 03/23/22 [facility] Adult [address] [place] [address]- Allergies, Adverse Reactions, Alerts Substance Reaction Severity Status amLODIPine Active Immunizations Given and Recorded Vaccine Date Status Refusal Reason SARS-CoV-2 mRNA (srhffjz-dmbp-ajqem) vax 1 02/21/22 Given Hepatitis A Adult Vaccine 2 02/21/22 Given Hepatitis A Adult Vaccine 3 08/24/21 Given hepatitis B adult vaccine 4 09/25/21 Given hepatitis B adult vaccine 5 08/24/21 Given SARS-CoV-2 (COVID-19) Ad26 vaccine 11/22/20 Record ed SARS-CoV-2 (COVID-19) Ad26 vaccine 11/22/20 Record ed tetanus/diphtheria/pertussis, acel(Tdap) 07/21/18 Given 1Result Comment: [facility]-[id number] 2Result Comment: [id number] 3Result Comment: [id number] 4Result Comment: [id number] 5Result Comment: [id number] Medications predniSONE 20 mg oral tablet 1 tablet = 20 mg, By Mouth, 2 times a day, with food or milk, # 20 tablet, 0 Refills, Maintenance, 01/31/22 10:01:00 EDT, Tablet, [id number], Partial fill upon patient request if the prescription is for a schedule II opioid drug., 183, cm, 05/... Start Date: 01/31/22 Status: Ordered Vitamin D2 [...]
--- OUTSIDE RECORDS SUMMARY | 2024-02-27 09:43 | XMS_ITS | Continuity of Care Document ---
Author Organization [facility] Frank[place] lt Address [address] [place] [address]- Care Team Providers Care Test Fixture Assembler Name Role Phone Pilar CORDOVA, Spencer Butler Primary Care Physician Encounter [facility] Date(s): 06/21/21 - 06/28/21 [facility] Adult [address] [place] [address]- Encounter Diagnosis Allergic rhinitis, seasonal(Discharge Diagnosis) - 06/21/21 Attending Physician: Macy WIRE HANGER, Katherine Lopez Allergies, Adverse Reactions, Alerts No Known Medication Allergies Immunizations Given and Recorded Vaccine Date Status Refusal Reason SARS-CoV-2 (COVID-19) Ad26 vaccine 11/22/20 Record ed SARS-CoV-2 (COVID-19) Ad26 vaccine 11/22/20 Record ed tetanus/diphtheria/pertussis, acel(Tdap) 07/21/18 Given Medications No Known Medications Problem List Condition Effective Dates Status Health Status Inform ant Cigarette smoker refer quitnow(Confirmed) 04/26/21 Active Mold exposure(Confirmed) 04/26/21 Active Abnormal liver enzymes(Confirmed) 04/26/21 Active Mitral prolapse.MR ECHO 2020(Confirmed) 04/26/21 Active Plantar fasciitis(Confirmed) Active Allergic rhinitis, seasonal(Confirmed) Active Diagnosis Diagnosis Type Effective Dates Health Status Cl inical Service Informant Allergic rhinitis, seasonal Discharge Diagnosis 06/21/21 Vital Signs Most recent to oldest [Reference Range]: 1 Height 183 cm (06/21/21 3:43 PM) Weight 114 kg (06/21/21 3:43 PM) Oxygen Saturation [94-100 %] 98 % (06/21/21 3:43 PM) Pulse Rate [55-90 bpm] 89 bpm (11/3/21 3:43 PM) Body Mass Index [18.5-24.99] 34.04 *>HHI* (06/21/21 3:43 PM) Blood Pressure [90-138/55-84 mm Hg] 140/ 82mm Hg *H* (06/21/21 3:43 PM) Temperature [96.8-100.4 DegF] 97.9 DegF (06/21/21 3:43 PM) Mode of Delivery (Oxygen) Room air (06/21/21 3:43 PM) Blood pressure sites Arm, right (06/21/21 3:43 PM) Temperature Route Oral (06/21/21 3:43 PM) Weight Obtained Via Standing scale (06/21/21 3:43 PM) Social History Social History Type Response Tobacco Use: 4 or less cigar ettes(less than 1/4 pack)/day in last 30 days, 1 pack a month since teens; . Sex
--- OUTSIDE RECORDS SUMMARY | 2024-02-27 09:43 | XMS_ITS | Continuity of Care Document ---
Author Organization [facility] [place] lt Address [address] [place] [address]- Care Team Providers Care Champion Of Sustainable Design Name Role Phone Pilar CORDOVA, Spencer Butler Primary Care Physician [facility] [facility] Date(s): 08/30/21 - 09/29/21 [facility] Adult [address] [place] [address]- Allergies, Adverse Reactions, Alerts Substance Reaction Severity Status amLODIPine Active Immunizations Given and Recorded Vaccine Date Status Refusal Reason hepatitis B adult vaccine 1 09/25/21 Given hepatitis B adult vaccine 2 08/24/21 Given Hepatitis A Adult Vaccine 3 08/24/21 Given SARS-CoV-2 (COVID-19) Ad26 vaccine 11/22/20 Record ed SARS-CoV-2 (COVID-19) Ad26 vaccine 11/22/20 Record ed tetanus/diphtheria/pertussis, acel(Tdap) 07/21/18 Given 1Result Comment: [facility]-[id number] 2Result Comment: [facility]-[id number] 3Result Comment: [id number] Medications Azithromycin 5 Day Dose Pack 250 [...]
--- OUTSIDE RECORDS SUMMARY | 2024-02-27 09:43 | XMS_ITS | Continuity of Care Document ---
Author Organization [facility] [place] lt Address [address] [place] [address]- Care Team Providers Care Information Resource Consultant Name Role Phone Pilar CORDOVA, Spencer Butler Primary Care Physician [facility]counter [facility] Date(s): 08/15/21 - 09/14/21 [facility] [address] [place] [address]- Allergies, Adverse Reactions, Alerts No Known Medication Allergies Immunizations Given and Recorded Vaccine Date Status Refusal Reason hepatitis B adult vaccine 1 08/24/21 Given Hepatitis A Adult Vaccine 2 08/24/21 Given SARS-CoV-2 (COVID-19) Ad26 vaccine 11/22/20 Record ed SARS-CoV-2 (COVID-19) Ad26 vaccine 11/22/20 Record ed tetanus/diphtheria/pertussis, acel(Tdap) 07/21/18 Given 1Result Comment: [id number] 2Result Comment: [id number] Problem List Condition Effective Dates Status Health [...]
--- OUTSIDE RECORDS SUMMARY | 2024-02-27 09:43 | XMS_ITS | Continuity of Care Document ---
Author Organization [facility] Address [address] [place] [address] [address], [address] [place] [address]- Care Team Providers Care Color Drum Worker Name Role Phone Juan Saldaña MD Primary Care Physician Encounter [facility] Date(s): 08/06/23 - 08/13/23 [facility] [address] [place] [address] Drive, [address] [place], [place] [address] Attending Physician: Sarbjit Grover MD Referring Physician: Juan Saldaña MD Allergies, Adverse Reactions, Alerts Substance Reaction Severity Status amoxicillin Active amLODIPine Active Immunizations Given and Recorded Vaccine Date Status Refusal Reason SARS-CoV-2 mRNA (umeepqc-egxq-jhkru) vax 1 02/21/22 Given Hepatitis A Adult Vaccine 2 02/21/22 Given Hepatitis A Adult Vaccine 3 08/24/21 Given hepatitis B adult vaccine 4 09/25/21 Given hepatitis B adult vaccine 5 08/24/21 Given SARS-CoV-2 (COVID-19) Ad26 vaccine 11/22/20 Record ed SARS-CoV-2 (COVID-19) Ad26 vaccine 11/22/20 Record ed tetanus/diphtheria/pertussis, acel(Tdap) 07/21/18 Given 1Result Comment: [facility]-[id number] 2Result Comment: [facility]-[id number] 3Result Comment: [id number] 4Result Comment: [facility]-[id number] 5Result Comment: [facility]-[id number] Medications doxycycline monohydrate 100 mg oral capsule 0 Refills, Maintenance, 08/06/23 15:39:00 EST, Partial fill upon patient request if the prescription is for a schedule II opioid drug. Start Date: 08/06/23 Status: Ordered hydrochlorothiazide-valsartan 12.5 mg-160 mg oral tablet 1 tablet, By Mouth, Daily, for 90 days, # 90 tablet, 3 Refills, Hard Stop 11/30/23 11:40:00 EDT, 12/05/22 11:40:00 EDT, Tablet, [facility]/pharmacy #0610, Partial fill upon patient request if the prescription is for a schedule II opioid drug., 183, cm, 11/08... Start Date: 12/05/22 Stop Date: 11/30/23 Status: Ordered Problem List Condition Confirmation Course Effective Dates Status H ealth Status Informant Benign hypertension Confirmed Active Chronic back pain L5-S21 narrowing MRI 1 Confirmed 12/18/21 Active COVID- Confirmed 08/28/21 Active Low vitamin D level [...] recent to oldest [Reference Range]: 1 Height 182.5 cm (08/06/23 3:35 PM) Weight 118.0 kg (08/06/23 3:35 PM) Body Mass Index [18.5-24.99 kg/m2] 35.43 kg/m2 *>HHI* (08/06/23 3:35 PM) Social History Social History Type Response Tobacco Other: quit igh t smoker. Sex Patient Care team information Care Team Personnel Name: Juan Saldaña MD Position: S Physician - Primary Care Member Role: PCP Address: Address: [address] [place] [address]- Care Team Related Persons Name: BERT FREGOSO Name: CASANDRA SHERWOOD Address: home [address] [place] [address] Name: JUNE SHERWOOD Name: JYOTI DE LA CRUZ
--- OUTSIDE RECORDS SUMMARY | 2024-02-27 09:43 | XMS_ITS | Continuity of Care Document ---
Author Organization [facility] [place] Address [address] [place] [address]- Care Team Providers Care Reading Intervention Teacher Name Role Phone Pilar CORDOVA, Spencer Butler Primary Care Physician [facility] Date(s): 03/27/22 - 04/26/22 [facility] Adult [address] [place] [address]- Allergies, Adverse Reactions, Alerts Substance Reaction Severity Status amLODIPine Active Immunizations Given and Recorded Vaccine Date Status Refusal Reason SARS-CoV-2 mRNA (ifqzgov-noyg-cvifv) vax 1 02/21/22 Given Hepatitis A Adult Vaccine 2 02/21/22 Given Hepatitis A Adult Vaccine 3 08/24/21 Given hepatitis B adult vaccine 4 09/25/21 Given hepatitis B adult vaccine 5 08/24/21 Given SARS-CoV-2 (COVID-19) Ad26 vaccine 11/22/20 Record ed SARS-CoV-2 (COVID-19) Ad26 vaccine 11/22/20 Record ed tetanus/diphtheria/pertussis, acel(Tdap) 07/21/18 Given 1Result Comment: [facility]-[id number] 2Result Comment: [facility]-[id number] 3Result Comment: [id number] 4Result Comment: [id number] 5Result Comment: [id number] Medications hydrochlorothiazide-valsartan 12.5 mg-160 mg oral tablet 1 tablet, By Mouth, Daily, # 30 tablet, 5 Refills, Maintenance, 04/13/22 11:28:00 EDT, Tablet, [id number], Partial fill upon patient request if the [...] Personnel Name: Pilar CORDOVA, Spencer Butler Address: [address] [place] [address]-
--- OUTSIDE RECORDS SUMMARY | 2024-02-27 09:43 | XMS_ITS | Continuity of Care Document ---
Author Organization [facility] [place] Address [address] [place] [address]- Care Team Providers Care Hazardous Substances Engineer Name Role Phone Pilar CORDOVA, Spencer Butler Primary Care Physician [phone] Encounter [facility] Date(s): 04/11/22 - 05/11/22 [facility] Adult [address] [place] [address]- Allergies, Adverse Reactions, Alerts Substance Reaction Severity Status amLODIPine Active Immunizations Given and Recorded Vaccine Date Status Refusal Reason SARS-CoV-2 mRNA (wvfgbwp-ctyx-pfdim) vax 1 02/21/22 Given Hepatitis A Adult Vaccine 2 02/21/22 Given Hepatitis A Adult Vaccine 3 08/24/21 Given hepatitis B adult vaccine 4 09/25/21 Given hepatitis B adult vaccine 5 08/24/21 Given SARS-CoV-2 (COVID-19) Ad26 vaccine 11/22/20 Record ed SARS-CoV-2 (COVID-19) Ad26 vaccine 11/22/20 Record ed tetanus/diphtheria/pertussis, acel(Tdap) 07/21/18 Given 1Result Comment: [facility]-[id number] 2Result Comment: [facility]-[id number] 3Result Comment: [id number] 4Result Comment: [id number] 5Result Comment: [id number] Medications hydrochlorothiazide-valsartan 12.5 mg-160 mg oral tablet 1 tablet, By Mouth, Daily, # 30 tablet, 5 Refills, Maintenance, 04/13/22 11:28:00 EDT, Tablet, [id number], Partial fill upon patient request if the [...] Active History of COVID-07 OCT 2021(Confirmed) Active H/O total hip arthroplasty l eft apr 2022(Confirmed) Active Mitral prolapse.MR ECHO 2020(Confirmed) 04/26/21 Active [...] Personnel Name: Pilar CORDOVA, Spencer Butler Address: [address] [place] [address]
--- OUTSIDE RECORDS SUMMARY | 2024-02-27 09:43 | XMS_ITS | Continuity of Care Document ---
Author Organization [facility] [place] lt Address [address] [place] [address]- Care Team Providers Care Dietetics Professor Name Role Phone Juan Saldaña MD Primary Care Physician Encounter [facility] Date(s): 11/28/22 - 12/05/22 [facility] Adult [address] [place] [address]- Attending Physician: Juan Saldaña MD Allergies, Adverse Reactions, Alerts Substance Reaction Severity Status amLODIPine Active Immunizations Given and Recorded Vaccine Date Status Refusal Reason SARS-CoV-2 mRNA (weuadgh-rdos-pmbbl) vax 1 02/21/22 Given Hepatitis A Adult Vaccine 2 02/21/22 Given Hepatitis A Adult Vaccine 3 08/24/21 Given hepatitis B adult vaccine 4 09/25/21 Given hepatitis B adult vaccine 5 08/24/21 Given SARS-CoV-2 (COVID-19) Ad26 vaccine 11/22/20 Record ed SARS-CoV-2 (COVID-19) Ad26 vaccine 11/22/20 Record ed tetanus/diphtheria/pertussis, acel(Tdap) 07/21/18 Given 1Result Comment: [facility]-[id number] 2Result Comment: [facility]-[id number] 3Result Comment: [id number] 4Result Comment: [id number] 5Result Comment: [id number] Medications hydrochlorothiazide-valsartan 12.5 mg-160 mg oral tablet 1 tablet, By Mouth, Daily, # 90 tablet, 3 Refills, Maintenance, 12/05/22 11:40:00 EDT, Tablet, [id number], Partial fill upon patient request if the [...] oldest [Reference Range]: 1 Height 183 cm (11/08/22 10:55 AM) Weight 117 kg (11/08/22 10:55 AM) Oxygen Saturation [94-100 %] 98 % (11/08/22 10:55 AM) Pulse Rate [55-90 bpm] 94 bpm *H* (11/08/22 10:55 AM) Body Mass Index [18.5-24.99 kg/m2] 34.94 kg/m2 *>HHI* (11/08/22 10:55 AM) Blood Pressure [90-138/55-84 mm Hg] 120/ 83mm Hg (11/08/22 10:55 AM) Blood pressure sites Arm, left (11/08/22 10:55 AM) Weight Obtained Via Standing scale (11/08/22 10:55 AM) Social History Social History Type Response Tobacco Other: quit igh t smoker. Sex Patient Care team information Care Team Personnel Name: Juan Saldaña MD Position: S Primary Care Physician Member Role: PCP Address: Address: [address] [place] [address]- Care Team Related Persons Name: BERT FREGOSO Name: CASANDRA SHERWOOD Address: [address] [address] Name: JUNE SHERWOOD Name: JYOTI DE LA CRUZ
--- OUTSIDE RECORDS SUMMARY | 2024-02-27 09:43 | XMS_ITS | Continuity of Care Document ---
Author Organization [facility] Address [address] [place] [address]- Care Team Providers Care Physician'S Assistant Name Role Phone Pilar CORDOVA, Spencer Butler Primary Care Physician Encounter 04/26/22 - 05/24/22 [facility] [address] [place] [address]- Discharge Disposition: GOALS MET Allergies, Adverse Reactions, Alerts Substance Reaction Severity Status amLODIPine Active Immunizations Given and Recorded Vaccine Date Status Refusal Reason SARS-CoV-2 mRNA (yvsbbqv-cwwo-lpikp) vax 1 02/21/22 Given Hepatitis A Adult Vaccine 2 02/21/22 Given Hepatitis A Adult Vaccine 3 08/24/21 Given hepatitis B adult vaccine 4 09/25/21 Given hepatitis B adult vaccine 5 08/24/21 Given SARS-CoV-2 (COVID-19) Ad26 vaccine 11/22/20 Record ed SARS-CoV-2 (COVID-19) Ad26 vaccine 11/22/20 Record ed tetanus/diphtheria/pertussis, acel(Tdap) 07/21/18 Given 1Result Comment: [facility]-[id number] 2Result Comment: [facility]-[id number] 3Result Comment: [id number] 4Result Comment: [facility]-[id number] 5Result Comment: [id number] Medications hydrochlorothiazide-valsartan 12.5 mg-160 mg oral tablet [...] t smoker. Sex Patient Care team information Personnel Name: Pilar CORDOVA, Spencer Butler Address: Address: [address] [place] [id number]
--- OUTSIDE RECORDS SUMMARY | 2024-02-27 09:43 | XMS_ITS | Continuity of Care Document ---
Author Organization [facility] ter Address [address] [place] [address]- Care Team Providers Care Spool Cleaner Name Role Phone Pilar CORDOVA, Spencer Butler Primary Care Physician Encounter [facility] Date(s): 04/24/22 - 05/24/[address] [address] Attending Physician: Not on Staff, Attending MD Admitting Physician: Not on Staff, Admitting MD Referring Physician: Not on Staff, Referring MD Allergies, Adverse Reactions, Alerts Substance Reaction Severity Status amLODIPine Active Immunizations Given and Recorded Vaccine Date Status Refusal Reason SARS-CoV-2 mRNA ([id number]-bmmv-glkoa) vax 1 02/21/22 Given Hepatitis A Adult Vaccine 2 02/21/22 Given Hepatitis A Adult Vaccine 3 08/24/21 Given hepatitis B adult vaccine 4 09/25/21 Given hepatitis B adult vaccine 5 08/24/21 Given SARS-CoV-2 (COVID-19) Ad26 vaccine 11/22/20 Record ed SARS-CoV-2 (COVID-19) Ad26 vaccine 11/22/20 Record ed tetanus/diphtheria/pertussis, acel(Tdap) 07/21/18 Given 1Result Comment: [facility]-[id number] 2Result Comment: [facility]-[id number] 3Result Comment: [id number] 4Result Comment: [facility]-[id number] 5Result Comment: [facility]-[id number] Medications hydrochlorothiazide-valsartan 12.5 mg-160 mg oral tablet [...] Name: Pilar CORDOVA, Spencer Butler Address: Address: [address] [place] [id number]
--- OUTSIDE RECORDS SUMMARY | 2024-02-27 09:43 | XMS_ITS | Continuity of Care Document ---
Author Organization [facility] Address [address] [address]- Care Team Providers Care Tar Distributor Operator Name Role Phone Spencer Quezada MD Primary Care Physician [place] [facility] [place]14[place]21 - 06/21/21 [facility] [address] [address]- Attending Physician: Mariah Yarbrough MD Admitting Physician: [...] Plantar fasciitis(Confirmed) Active Allergic rhinitis, seasonal(Confirmed) Active Vital Signs Most recent to oldest [Reference Range]: 1 Height 183 cm (06/14/21 2:51 PM) Weight 114 kg (06/14/21 2:51 PM) Oxygen Saturation [94-100 %] 99 % (06/14/21 2:51 PM) Pulse Rate [55-90 bpm] 80 bpm (06/14/21 2:51 PM) Body Mass Index [18.5-24.99] 34.04 *>HHI* (06/14/21 2:51 PM) Blood Pressure [90-138/55-84 mm Hg] 167/ 91mm Hg *H* (06/14/21 2:51 PM) Mode of Delivery (Oxygen) Room air (06/14/21 2:51 PM) Weight Obtained Via Standing scale (06/14/21 2:51 PM) Social History Social History Type Response Tobacco Use: 4 or less cigar ettes(less than 1/4 pack)/day in last 30 days, 1 pack a month since teens; . Sex
--- OUTSIDE RECORDS SUMMARY | 2024-02-27 09:43 | XMS_ITS | Continuity of Care Document ---
Author Organization [facility] [place] Address [address] [place] [address]- Care Team Providers Care Archeologist Classical Name Role Phone Pilar CORDOVA, Spencer Butler Primary Care Physician [phone] Encounter [facility] Date(s): 07/03/21 - 08/02/21 [facility] Adult [address] [place] [address]- Allergies, Adverse Reactions, Alerts No Known Medication [...]
--- OUTSIDE RECORDS SUMMARY | 2024-02-27 09:43 | XMS_ITS | Continuity of Care Document ---
Author Organization [facility] [place] Address [address] [place] [address]- Care Team Providers Care Development Representative Name Role Phone Pilar CRODOVA, Spencer Butler Primary Care Physician Encounter [facility] Date(s): 04/28/21 - 05/28/21 [facility] Adult [address] [place] [address]- Allergies, Adverse Reactions, Alerts No Known Medication [...]
--- OUTSIDE RECORDS SUMMARY | 2024-02-27 09:43 | XMS_ITS | Continuity of Care Document ---
Author Organization [facility] [place] Address [address] [place] [address]- Care Team Providers Care Physician Surgeon Name Role Phone Piotr CORDOVA, Juan Walker Primary Care Physician Encounter [facility] Date(s): 10/08/23 - 11/07/23 [facility] Adult [address] [place] [address]- Allergies, Adverse Reactions, Alerts Substance Reaction Severity Status amoxicillin Active amLODIPine Active Immunizations Given and Recorded Vaccine Date Status Refusal Reason SARS-CoV-2 mRNA (qacnpof-rbrw-rdere) vax 1 02/21/22 Given Hepatitis A Adult Vaccine 2 02/21/22 Given Hepatitis A Adult Vaccine 3 08/24/21 Given hepatitis B adult vaccine 4 09/25/21 Given hepatitis B adult vaccine 5 08/24/21 Given SARS-CoV-2 (COVID-19) Ad26 vaccine 11/22/20 Record ed SARS-CoV-2 (COVID-19) Ad26 vaccine 11/22/20 Record ed tetanus/diphtheria/pertussis, acel(Tdap) 07/21/18 Given 1Result Comment: [facility]-[id number] 2Result Comment: [id number] 3Result Comment: [id number] 4Result Comment: [id number] 5Result Comment: [id number] Medications hydrochlorothiazide-valsartan 12.5 mg-160 mg oral tablet 1 tablet, By Mouth, Daily, for 90 days, # 90 tablet, 1 Refills, Hard Stop 04/05/24 12:27:00 EDT, 10/08/23 12:27:00 EST, [facility]t, [id number], Partial fill upon patient request if the [...] Personnel Name: Piotr CORDOVA, Juan Walker Position: [facility] Physician - Primary Care Member Role: PCP Address: Address: [address] [place] [address]- Care Team Related Persons Name: BERT SAINZ Address: [facility] [place] [address] Name: CASANDRA SHERWOOD Address: home [address] [place] [address] Name: JUNE SHERWOOD Name: JYOTI DE LA CRUZ
--- OUTSIDE RECORDS SUMMARY | 2024-02-27 09:43 | XMS_ITS | Continuity of Care Document ---
Author Organization [facility] [place] Address [address] [place] [address]- Care Team Providers Care Branding Specialist Name Role Phone Pilar CORDOVA, Spencer Butler Primary Care Physician [place] [facility] 04/26/21 - 05/26/21 [facility] Adult [address] [place] [address]- Attending Physician: AdmDeirdre mg Admitting Physician: AdmtrDeirdre Referring Physician: Admtr, Ar8 Allergies, Adverse Reactions, Alerts No Known Medication [...]
--- OUTSIDE RECORDS SUMMARY | 2024-02-27 09:43 | XMS_ITS | Continuity of Care Document ---
Author Organization [facility] Address [address] [address]- Care Team Providers Care Technical Support Intern Name Role Phone Pilar CORDOVA, Spencer Butler Primary Care Physician Encounter [facility] Date(s): 06/12/21 - 07/12/21 [facility] [address] [address]- Attending Physician: Admtr, Hayden8 Admitting Physician: Admtr, Ar8 Referring Physician: Admtr, Ar8 Allergies, Adverse Reactions, [...]
--- OUTSIDE RECORDS SUMMARY | 2024-02-27 09:43 | XMS_ITS | Continuity of Care Document ---
Author Organization [facility] [place] Address [address] [place] [address]- Care Team Providers Care Manager Life Insurance Name Role Phone Pilar CORDOVA, Spencer Butler Primary Care Physician [phone] Encounter [facility] Date(s): 12/20/21 - 01/19/22 [facility] Adult [address] [place] [address]- Allergies, Adverse Reactions, Alerts Substance Reaction Severity Status amLODIPine Active Immunizations Given and Recorded Vaccine Date Status Refusal Reason hepatitis B adult vaccine 1 09/25/21 Given hepatitis B adult vaccine 2 08/24/21 Given Hepatitis A Adult Vaccine 3 08/24/21 Given SARS-CoV-2 (COVID-19) Ad26 vaccine 11/22/20 Record ed SARS-CoV-2 (COVID-19) Ad26 vaccine 11/22/20 Record ed tetanus/diphtheria/pertussis, acel(Tdap) 07/21/18 Given 1Result Comment: [id number] 2Result Comment: [id number] 3Result Comment: [id number] Medications Vitamin D2 2000 intl units oral [...]
--- OUTSIDE RECORDS SUMMARY | 2024-02-27 09:43 | XMS_ITS | Continuity of Care Document ---
Author Organization [facility] [place] Address [address] [place] [address]- Care Team Providers Care Machine Wood Sander Name Role Phone Pilar CORDOVA, Spencer Butler Primary Care Physician [phone] Encounter [facility] Date(s): 12/20/21 - 01/19/22 [facility] Adult [address] [place] [address]- Allergies, Adverse Reactions, Alerts Substance Reaction Severity Status amLODIPine Active Immunizations Given and Recorded Vaccine Date Status Refusal Reason hepatitis B adult vaccine 1 09/25/21 Given hepatitis B adult vaccine 2 08/24/21 Given Hepatitis A Adult Vaccine 3 08/24/21 Given SARS-CoV-2 (COVID-19) Ad26 vaccine 11/22/20 Record ed SARS-CoV-2 (COVID-19) Ad26 vaccine 11/22/20 Record ed tetanus/diphtheria/pertussis, acel(Tdap) 07/21/18 Given 1Result Comment: [id number] 2Result Comment: [id number] 3Result Comment: [id number] Medications Vitamin D2 2000 intl units oral [...]
--- OUTSIDE RECORDS SUMMARY | 2024-02-27 09:43 | XMS_ITS | Continuity of Care Document ---
Author Organization [facility] [place] Address [address] [place] [address]- Care Team Providers Care Bb Shot Packer Name Role Phone Juan Saldaña MD Primary Care Physician Encounter [facility] Date(s): 12/13/23 - 12/20/23 [facility] Adult [address] [place] [address]- Encounter Diagnosis Cervical stenosis of spine(Discharge Diagnosis) - 12/13/23 Benign hypertension(Discharge Diagnosis) - 12/13/23 Attending Physician: Juan Saldaña MD Allergies, Adverse Reactions, Alerts Substance Reaction Severity Status amoxicillin Active amLODIPine Active Immunizations Given and Recorded Vaccine Date Status Refusal Reason SARS-CoV-2 mRNA (bhkeyxd-bmkz-zegyh) vax 1 02/21/22 Given Hepatitis A Adult Vaccine 2 02/21/22 Given Hepatitis A Adult Vaccine 3 08/24/21 Given hepatitis B adult vaccine 4 09/25/21 Given hepatitis B adult vaccine 5 08/24/21 Given SARS-CoV-2 (COVID-19) Ad26 vaccine 11/22/20 Record ed SARS-CoV-2 (COVID-19) Ad26 vaccine 11/22/20 Record ed tetanus/diphtheria/pertussis, acel(Tdap) 07/21/18 Given 1Result Comment: [facility]-[id number] 2Result Comment: [facility]-[id number] 3Result Comment: [id number] 4Result Comment: [facility]-[id number] 5Result Comment: [id number] Medications hydrochlorothiazide-valsartan 12.5 mg-160 mg oral tablet 1 tablet, By Mouth, Daily, for 90 days, # 90 tablet, 1 Refills, Hard Stop 04/05/24 12:27:00 EDT, 10/08/23 12:27:00 EST, Tablet, [id number], Partial fill upon patient request if the [...] Effective Dates Health Status Clinical Service Informant Cervical stenosis of spine Discharge Diagnosis 12/13/23 Benign hypertension Discharge Diagnosis 12/13/23 Vital Signs Most recent to oldest [Reference Range]: 1 2 Height 182.5 cm (12/13/23 11:42 AM) 182.5 cm (12/13/23 11:38 AM) Weight 118.5 kg (12/13/23 11:38 AM) Oxygen Saturation [94-100 %] 98 % (12/13/23 11:38 AM) Pulse Rate [55-90 bpm] 87 bpm (12/13/23 11:38 AM) Body Mass Index [18.5-24.99 kg/m2] 35.58 kg/m2 *>HHI* (12/13/23 11:38 AM) Blood Pressure [90-138/55-84 mm Hg] 129/ 82mm Hg (12/13/23 11:42 AM) 145/81mm Hg *H* (12/13/23 11:38 AM) Mode of Delivery (Oxygen) Room air (12/13/23 11:38 AM) Blood pressure sites Arm, left (4/26/24 11:42 AM) Arm, left (12/13/23 11:38 AM) Weight Obtained Via Standing scale (12/13/23 11:38 AM) Social History Social History Type Response Tobacco Other: quit igh t smoker. Sex Note * Risa Vaughn: PERFORM, SIGN, VERIFY Event Display: Patient Education/Instruction Authored Date: [id number] [facility] *BMP So [facility] [place] Clinical Summary Name MAGDALENO SHERWOOD Age 63 Years 1960 PCP Piotr CORDOVA, Juan Walker PCP Visit Date 12/13/2023 11:33:00 Additional Instructions: Scheduled Appointments?? Future Appointments ?[facility] ?Phone:??--?Fax:??-- ?Appt. Date:??02/06/2024?8:00 AM ?Scheduled Provider:??Kenia CORDOVA, Alf Follow-Up Instructions ?? Diagnosis Spinal stenosis, cervical region; Essential (primary) hypertension Medications: Please continue your medications until treatment is completed or stopped by your provider. Discuss any questions related to medications with your provider. Medications to Continue with No Changes These medications were not printed or sent to your pharmacy Hydrochlorothiazide-Valsartan (hydrochlorothiazide-valsartan 12.5 mg-160 mg oral tablet) 1 tab(s) Oral Daily for 90 Days. Refills: 1. Next Dose: Allergy Info:?? amLODIPine; amoxicillin Medications Given This Visit Future Orders ?No future orders Future Orders ?No future orders Vital Signs Height 182.5 cm Weight 118.5 kg BMI 35.58 kg/m2 Blood Pressure 129 mm Hg/82 mm Hg Temperature Pulse Rate 87 bpm Respiratory Rate 02 Sat Mode of Delivery 98 %/Room air You can now view a summary of your hospital visit from the comfort of your home through a free online portal called [employer]. [employer] is a website that allows you to securely view your medical information including discharge summary, medications and follow-up visits. ??You can alsosend a secure electronic message to your doctor???s office to request appointments, renew medications or just ask a question. You can enroll at [email or web address] or register during your next office visit. Disclaimer:?? The information provided is of a general nature and is intended to be used in conjunction with the recommendations and advice of your health care practitioner. ??Every effort has been made to ensure that the information provided is accurate and complete at the time it is provided to you however, as your needs change, or, as new ??information becomes available, different or additional instructions may be required. If you have questions, please consult with your primary care provider or pharmacist, as appropriate. ??This information is not intended to serve as substitution for assessment and evaluation by a qualified health care provider. If you do not have a primary care provider, you may find a [facility] provider by calling [employer] at [phone]. [facility], in keeping with [facility] guidance, no longer requires face masks for staff, patientsor visitors in most situations. Similar to time spent indoors at other locations, there is the chance that you were exposed to respiratory viruses during your time with us (such as flu or COVID-19).? If you develop symptoms concerning for a viral respiratory infection, please seek testing (and treatment if indicated) from your medical provider or home test kit. For information about the plan of care including goals and instructions for your diagnosis, please see the patient education orders section of this document. Patient Education Materials?? The content of this educational material or handout may have been modified, supplemented, or adapted from its original content and format to support your individualized medical care. Patient Care team information Care Team Personnel Name: Piotr CORDOVA, Juan Walker Position: [facility] Physician - Primary Care Member Role: PCP Address: Address: [address] [place] [address]- Care Team Related Persons Name: BERT SAINZ Address: [facility] [place] [address] Name: CASANDRA SHERWOOD Address: home [address] [place] [address] Name: JUNE SHERWOOD Name: JYOTI D ELA CRUZ
--- OUTSIDE RECORDS SUMMARY | 2024-02-27 09:43 | XMS_ITS | Continuity of Care Document ---
Author Organization [facility] [place] Address [address] [place] [address]- Care Team Providers Care Apartment Property Manager Name Role Phone Spencer Quezada MD Primary Care Physician [phone] Encounter [facility] Date(s): 04/26/21 - 05/03/21 [facility] Adult [address] [place] [address]- Encounter Diagnosis Physical exam(Discharge Diagnosis) - 04/26/21 Cigarette smoker refer quitnow(Discharge Diagnosis) - 04/26/21 Heart murmur, aortic(Discharge Diagnosis) - 04/26/21 Plantar fasciitis(Discharge Diagnosis) - 04/26/21 Mold exposure(Discharge Diagnosis) - 04/26/21 Obesity (BMI 30.0-34.9)(Discharge Diagnosis) - 04/26/21 Attending Physician: Spencer Quezada MD Allergies, Adverse [...] liver enzymes(Confirmed) 04/26/21 Active Plantar fasciitis(Confirmed) Active Diagnosis Diagnosis Type Effective Dates Health Status Cl inical Service Informant Physical exam Discharge Diagnosis 04/26/21 Cigarette smoker refer quitnow Discharge Diagnosis 04/26/21 Heart murmur, aortic Discharge Diagnosis 04/26/21 Plantar fasciitis Discharge Diagnosis 04/26/21 Mold exposure Discharge Diagnosis 04/26/21 Obesity (BMI 30.0-34.9) Discharge Diagnosis 04/26/21 Procedures Procedure Date Related Diagnosis Body Site Status Electrocardiogram normal sinus prqrs qt 04/26/21 Completed Vital Signs Most recent to oldest [Reference Range]: 1 2 3 Height 183 cm (04/26/21 10:34 AM) 183 cm (04/26/21 10:25 AM) 183 cm (04/26/21 9:55 AM) Weight 111.5 kg (04/26/21 9:55 AM) Oxygen Saturation [94-100 %] 98 % (04/26/21 9:55 AM) Pulse Rate [55-90 bpm] 83 bpm (04/26/21 9:55 AM) Body Mass Index [18.5-24.99] 33.29 *>HHI* (04/26/21 9:55 AM) Blood Pressure [90-138/55-84 mm Hg] 136/86mm Hg (04/26/21 10:34 AM) 142/84mm Hg *H* (04/26/21 10:25 AM) 158/98mm Hg *H* (04/26/21 9:55 AM) Temperature [96.8-100.4 DegF] 98.5 DegF (04/26/21 9:55 AM) Blood pressure sites Arm, left (04/26/21 10:34 AM) Arm, left (04/26/21 10:25 AM) Social History Social History Type Response Tobacco Use: 4 or less cigar ettes(less than 1/4 pack)/day in last 30 days, 1 pack a month since teens; . Sex
--- OUTSIDE RECORDS SUMMARY | 2024-02-27 09:43 | XMS_ITS | Continuity of Care Document ---
Author Organization [facility] Clay Franklyn lt Address [address] [place] [address]- Care Team Providers Care Art Objects Salesperson Name Role Phone Juan Saldaña MD Primary Care Physician En[place] [facility] [place](s): 07/17/23 - 07/24/23 [facility] Adult [address] [place] [address]- Attending Physician: Juan Saldaña MD Allergies, Adverse Reactions, Alerts Substance Reaction Severity Status amLODIPine Active Immunizations Given and Recorded Vaccine Date Status Refusal Reason SARS-CoV-2 mRNA (ugrbzft-igom-pgmcq) vax 1 02/21/22 Given Hepatitis A Adult Vaccine 2 02/21/22 Given Hepatitis A Adult Vaccine 3 08/24/21 Given hepatitis B adult vaccine 4 09/25/21 Given hepatitis B adult vaccine 5 08/24/21 Given SARS-CoV-2 (COVID-19) Ad26 vaccine 11/22/20 Record ed SARS-CoV-2 (COVID-19) Ad26 vaccine 11/22/20 Record ed tetanus/diphtheria/pertussis, acel(Tdap) 07/21/18 Given 1Result Comment: [id number] 2Result Comment: [id number] 3Result Comment: [id number] 4Result Comment: [id number] 5Result Comment: [id number] Medications hydrochlorothiazide-valsartan 12.5 mg-160 mg oral tablet 1 tablet, By Mouth, Daily, for 90 days, # 90 tablet, 3 Refills, Hard Stop 11/30/23 11:40:00 EDT, 12/05/22 11:40:00 EDT, Tablet, [id number], Partial fill upon patient request if the [...] oldest [Reference Range]: 1 Height 182.5 cm (07/17/23 1:15 PM) Weight 118 kg (07/17/23 1:15 PM) Oxygen Saturation [94-100 %] 98 % (07/17/23 1:15 PM) Pulse Rate [55-90 bpm] 73 bpm (07/17/23 1:15 PM) Body Mass Index [18.5-24.99 kg/m2] 35.43 kg/m2 *>HHI* (07/17/23 1:15 PM) Blood Pressure [90-138/55-84 mm Hg] 131/ 86mm Hg (07/17/23 1:15 PM) Mode of Delivery (Oxygen) Room air (07/17/23 1:15 PM) Blood pressure sites Arm, left (07/17/23 1:15 PM) Weight Obtained Via Standing scale (07/17/23 1:15 PM) Social History Social History Type Response Tobacco Other: quit igh t smoker. Sex Patient Care team information Care Team Personnel Name: Juan Saldaña MD Position: S Physician - Primary Care Member Role: PCP Address: Address: [address] [place] [address]- Care Team Related Persons Name: BERT FREGOSO Name: CASANDRA SHERWOOD Address: [address] [address] Name: JUNE SHERWOOD Name: JYOTI DE LA CRUZ
--- OUTSIDE RECORDS SUMMARY | 2024-02-27 09:44 | XMS_ITS | Continuity of Care Document ---
[facility] Address [address] [place] [address]- Care Team Providers Care Calender Tender Name Role Phone Pilar CORDOVA, Spencer Butler Primary Care Physician En[place] [facility] [place] Date(s): 09/12/21 - 10/12/21 [facility] Adult [address] [place] [address]- Allergies, Adverse Reactions, Alerts Substance Reaction Severity Status amLODIPine Active Immunizations Given and Recorded Vaccine Date Status Refusal Reason hepatitis B adult vaccine 1 09/25/21 Given hepatitis B adult vaccine 2 08/24/21 Given Hepatitis A Adult Vaccine 3 08/24/21 Given SARS-CoV-2 (COVID-19) Ad26 vaccine 11/22/20 Record ed SARS-CoV-2 (COVID-19) Ad26 vaccine 11/22/20 Record ed tetanus/diphtheria/pertussis, acel(Tdap) 07/21/18 Given 1Result Comment: [facility]-[id number] 2Result Comment: [facility]-[id number] 3Result Comment: [id number] Medications Azithromycin 5 Day Dose Pack 250 [...]
--- OUTSIDE RECORDS SUMMARY | 2024-02-27 09:44 | XMS_ITS | Continuity of Care Document ---
Author Organization [facility] Address [address] [address]- Care Team Providers Care Compress Trucker Name Role Phone Pilar CORDOVA, Spencer Butler Primary Care Physician [place] [facility] [place]12[place]21 - 06/19/21 [facility] [address] [address]- Attending Physician: Mariah Yarbrough MD Admitting Physician: Mariah Yarbrough MD Referring Physician: Mariah Yarbrough MD Allergies, Adverse Reactions, Alerts No Known [...] Plantar fasciitis(Confirmed) Active Allergic rhinitis, seasonal(Confirmed) Active Procedures Procedure Date Related Diagnosis Body Site Status Echocardiogram aoertic root 40 MVP/MR 06/12/21 Completed Social History Social History Type Response Tobacco Use: 4 or less cigar ettes(less than 1/4 pack)/day in last 30 days, 1 pack a month since teens; . Sex
--- OUTSIDE RECORDS SUMMARY | 2024-02-27 09:44 | XMS_ITS | Continuity of Care Document ---
Author Organization [facility] Clay Franklyn lt Address [address] [place] [address]- Care Team Providers Care Content Publisher Name Role Phone Piotr CORDOVA, Juan Walker Primary Care Physician [phone] Encounter [facility] [place] Date(s): 10/16/23 - 11/15/23 [facility] Mohan Williamson Adult [address] [place] [address]- Allergies, Adverse Reactions, Alerts Substance Reaction Severity Status amoxicillin Active amLODIPine Active Immunizations Given and Recorded Vaccine Date Status Refusal Reason SARS-CoV-2 mRNA (auudsbq-lkvn-urgko) vax 1 02/21/22 Given Hepatitis A Adult Vaccine 2 02/21/22 Given Hepatitis A Adult Vaccine 3 08/24/21 Given hepatitis B adult vaccine 4 09/25/21 Given hepatitis B adult vaccine 5 08/24/21 Given SARS-CoV-2 (COVID-19) Ad26 vaccine 11/22/20 Record ed SARS-CoV-2 (COVID-19) Ad26 vaccine 11/22/20 Record ed tetanus/diphtheria/pertussis, acel(Tdap) 07/21/18 Given 1Result Comment: [facility]-[id number] 2Result Comment: [facility]-[id number] 3Result Comment: [id number] 4Result Comment: [id number] 5Result Comment: [id number] Medications hydrochlorothiazide-valsartan 12.5 mg-160 mg oral tablet 1 tablet, By Mouth, Daily, for 90 days, # 90 tablet, 1 Refills, Hard Stop 04/05/24 12:27:00 EDT, 10/08/23 12:27:00 EST, Tablet, [id number], Partial fill upon patient request if the [...] Team Personnel Name: Juan Saldaña MD Position: [facility] Physician - Primary Care Member Role: PCP Address: Address: [address] [place] [address]- Care Team Related Persons Name: BERT SAINZ Address: [facility] [place] [address] Name: CASANDRA SHERWOOD Address: home [address] [place] [address] Name: JUNE SHERWOOD Name: JYOTI DE LA CRUZ
--- OUTSIDE RECORDS SUMMARY | 2024-02-27 09:44 | XMS_ITS | Continuity of Care Document ---
Author Organization [facility] Clay Franklyn lt Address [address] [place] [address]- Care Team Providers Care Preservationist Name Role Phone Pilar CORDOVA, Spencer Butler Primary Care Physician [phone] Encounter [facility] Date(s): 06/22/22 - 07/22/22 [facility] Mohan Williamson Adult [address] [place] [address]- Allergies, Adverse Reactions, Alerts Substance Reaction Severity Status amLODIPine Active Immunizations Given and Recorded Vaccine Date Status Refusal Reason SARS-CoV-2 mRNA (tefnspj-zbrl-kfbqh) vax 1 02/21/22 Given Hepatitis A Adult Vaccine 2 02/21/22 Given Hepatitis A Adult Vaccine 3 08/24/21 Given hepatitis B adult vaccine 4 09/25/21 Given hepatitis B adult vaccine 5 08/24/21 Given SARS-CoV-2 (COVID-19) Ad26 vaccine 11/22/20 Record ed SARS-CoV-2 (COVID-19) Ad26 vaccine 11/22/20 Record ed tetanus/diphtheria/pertussis, acel(Tdap) 07/21/18 Given 1Result Comment: [facility]-[id number] 2Result Comment: [facility]-[id number] 3Result Comment: [id number] 4Result Comment: [id number] 5Result Comment: [id number] Medications hydrochlorothiazide-valsartan 12.5 mg-160 mg oral tablet 1 tablet, By Mouth, Daily, # 30 tablet, 5 Refills, Maintenance, 04/13/22 11:28:00 EDT, Tablet, [id number], Partial fill upon patient request [...] Sex Patient Care team information Care Team Related Persons Name: BERT FREGOSO Name: CASANDRA SHEROWOD Address: home [address] [place] [address] Name: JUNE SHERWOOD Name: JYOTI DE LA CRUZ
--- OUTSIDE RECORDS SUMMARY | 2024-02-27 09:44 | XMS_ITS | Continuity of Care Document ---
Author Organization [facility] Address [address] [address]- Care Team Providers Care Jacquard Twine Polisher Operator Name Role Phone Piotr CORDOVA, Juan Walker Primary Care Physician Encounter [facility] [place] Date(s): 11/28/22 - 12/05/22 [facility] [address] [address]- Attending Physician: Sheila Choudhary Admitting Physician: Sheila Choudhary Referring Physician: Sheila Choudhary Allergies, Adverse Reactions, Alerts Substance Reaction Severity Status amLODIPine Active Immunizations Given and Recorded Vaccine Date Status Refusal Reason SARS-CoV-2 mRNA (tinqsva-tjxx-ehuen) vax 1 02/21/22 Given Hepatitis A Adult Vaccine 2 02/21/22 Given Hepatitis A Adult Vaccine 3 08/24/21 Given hepatitis B adult vaccine 4 09/25/21 Given hepatitis B adult vaccine 5 08/24/21 Given SARS-CoV-2 (COVID-19) Ad26 vaccine 11/22/20 Record ed SARS-CoV-2 (COVID-19) Ad26 vaccine 11/22/20 Record ed tetanus/diphtheria/pertussis, acel(Tdap) 07/21/18 Given 1Result Comment: [facility]-[id number] 2Result Comment: [facility]-[id number] 3Result Comment: [id number] 4Result Comment: [facility]-[id number] 5Result Comment: [id number] Medications hydrochlorothiazide-valsartan 12.5 mg-160 mg oral tablet 1 tablet, By Mouth, Daily, # 90 tablet, 3 Refills, Maintenance, 12/05/22 11:40:00 EDT, [facility]t, [id number], Partial [...] Confirmed Active H/O total hip arthroplasty left sept 2021 Confirmed Active Mitral prolapse.MR ECHO 2020 Confirmed [...] Tobacco Other: quit igh t smoker. Sex US Heart * Event Display: Echocardiogram - Complete Authored Date: * Event Display: Echocardiogram - Complete Authored Date: Transthoracic Echocardiography Report (TTE) Patient Demographics Patient Name MAGDALENO SHERWOOD Date of Study 11/28/2022 Corporate Gender Male Facility Race Unknown Ethnicity Date of 1960 Height: 72.05 inches Age 62 year(s) Weight: 257.94 pounds Accession Number [id number] BSA: 2.37 m2 Room Number BMI: 34.94 kg/m2 Referring Physician Zbigniew ASHER Interpreting Franchesca Guevara MD Physician Rn Cardiology Bj Roberts Indications Left Ventricular Hypertrophy (LVH). Clinical History MVP Study Data Type of Study TTE procedure:Echo Complete-Doppler, Colorflow, M-Mode. Study Date11/28/2022 Start Time: 04:02 PM Study Location: [facility] Echo Study Status: Echo lab Patient Status: Routine Technical Quality: Fair due to restricted mobility. EKG: Within normal limits HR: 76 bpm 2D Measurements LV Diastolic Dimension: 5.2 cm LV Systolic Dimension: 3.3 cm LV Septum Diastolic: 1.4 cm LV PW Diastolic: 1.2 cm AO Root Dimension: 3.3 cm LA Dimension: 4.3 cm LA ESV (BP):60.3 ml LVOT Stroke Volume: 74.43 ml LA ESV Index: 25 ml/m2 Stroke Volume Index31.41 ml/m2 LVOT: 2.1 cm Cardiac Index:2.39 l/min/m2 Ascending Aorta:4 cm Doppler Measurements AV Peak Velocity: 159 cm/s MV Peak E-Wave: 64.7 cm/s AV Peak Gradient: 10.11 mmHg MV Peak A-Wave: 90.4 cm/s AV Mean Gradient: 5 mmHg MV E/A Ratio: 0.72 AV VTI:28.3 cm MV P1/2t: 73 msec LVOT Peak Velocity: 108 cm/s LVOT VTI21.5 cm MV Deceleration Time: 250 msec AV Area (Continuity):2.63 cm2 MV Area (PHT): 3.01 cm2 TR Velocity:239 cm/s TR Gradient:22.85 mmHg E' Septal Velocity: 10.2 cm/s E' Lateral Velocity: 11.6 cm/s E/Med E':6.826535 E/Lat E':5.299080 Cardiac Anatomy Left Ventricle/Interventricular Septum The left ventricular size is normal. There is mild asymmetric hypertrophy due to a sigmoid septum. Grade I, mild diastolic dysfunction with impaired LV relaxation, which may be normal for the patient's age. Normal LV systolic function. Ejection fraction is 55-65%. There are no definite regional wall motion abnormalities. Left Atrium/Interatrial Septum The left atrium is normal in size. Aortic Valve The aortic valve is trileaflet and normal in structure and function. There is no aortic stenosis or insufficiency. Mitral Valve The mitral valve appears mildly calcified. There is mild prolapse of the posterior leaflet. There is at least mild to moderate mitral regurgitation (diffuse jet). There is no significant mitral stenosis. Aorta The aortic root is normal in size. There is mild dilation of the ascending aorta . Right Ventricle The right ventricle is normal in size and function proximally, distal not optimally seen. Right Atrium The right atrium is normal in size. Pulmonic Valve The pulmonic valve is functionally normal. Tricuspid Valve The tricuspid valve is normal in structure and function. There is trace regurgitation. Pumonary Artery The pulmonary artery pressure is within normal limits. Venous Structures The inferior vena cava appears normal. Pericardium/Extracardiac There is no pericardial effusion. Summary The left ventricular size is normal. There is mild asymmetric hypertrophy due to a sigmoid septum. Grade I, mild diastolic dysfunction with impaired LV relaxation, which may be normal for the patient's age. Normal LV systolic function. Ejection fraction is 55-65%. There are no definite regional wall motion abnormalities. The mitral valve appears mildly calcified. There is mild prolapse of the posterior leaflet. There is at least mild to moderate mitral regurgitation (diffuse jet). There is no significant mitral stenosis. The aortic root is normal in size. There is mild dilation of the ascending aorta . The right ventricle is normal in size and function proximally, distal not optimally seen. Comparison Comparison is made to the study of June 12, 2021. There is no significant change. Signature Patient Care team information Care Team Personnel Name: Piotr CORDOVA, Juan Walker Position: [facility] Primary Care Physician Member Role: PCP Address: Address: [address] [place] [address]- Care Team Related Persons Name: BERT FREGOSO Name: CASANDRA SHERWOOD Address: home [address] [place] [address] Name: JUNE SHERWOOD Name: JYOTI DE LA CRUZ
--- OUTSIDE RECORDS SUMMARY | 2024-02-27 09:44 | XMS_ITS | Continuity of Care Document ---
Author Organization [facility] Mohan Williamson Franklyn lt Address [address] [place] [address]- Care Team Providers Care Automotive Buyer Name Role Phone Spencer Quezada MD Primary Care Physician [phone] En[place] [facility] [place](s): 08/10/21 - 08/17/21 KAREY Williamson Adult [address] [place] [address]- Encounter Diagnosis Fatty liver(Discharge Diagnosis) - 08/10/21 Attending Physician: Spencer Quezada MD Allergies, Adverse Reactions, Alerts No Known Medication Allergies Immunizations Given and Recorded Vaccine Date Status Refusal Reason SARS-CoV-2 (COVID-19) Ad26 vaccine 11/22/20 Record ed SARS-CoV-2 (COVID-19) Ad26 vaccine 11/22/20 Record ed tetanus/diphtheria/pertussis, acel(Tdap) 07/21/18 Given Problem List Condition Effective Dates Status Health Status Inform ant Benign hypertension(Confirmed) Active Cigarette smoker refer quitnow(Confirmed) 04/26/21 Active Mold exposure(Confirmed) 04/26/21 Active Mitral prolapse.MR ECHO 2020(Confirmed) 04/26/21 Active Plantar fasciitis(Confirmed) Active Allergic rhinitis, seasonal(Confirmed) Active Fatty liver(Confirmed) 08/07/21 Active Diagnosis Diagnosis Type Effective Dates Health Status Clini ab Service Informant Fatty liver Discharge Diagnosis 08/10/21 Social History Social History Type Response Tobacco Use: 4 or less cigar ettes(less than 1/4 pack)/day in last 30 days, 1 pack a month since teens; . Sex
--- OUTSIDE RECORDS SUMMARY | 2024-02-27 09:44 | XMS_ITS | Continuity of Care Document ---
Author Organization [facility] Clay Franklyn lt Address [address] [place] [address]- Care Team Providers Care Food Broker Name Role Phone Juan Saldaña MD Primary Care Physician Encounter [facility] Date(s): 08/16/23 - 08/23/23 [facility] Adult [address] [place] [address]- Attending Physician: Juan Saldaña MD Allergies, Adverse Reactions, Alerts Substance Reaction Severity Status amoxicillin Active amLODIPine Active Immunizations Given and Recorded Vaccine Date Status Refusal Reason SARS-CoV-2 mRNA (rwqddwg-squi-sldsy) vax 1 02/21/22 Given Hepatitis A Adult Vaccine 2 02/21/22 Given Hepatitis A Adult Vaccine 3 08/24/21 Given hepatitis B adult vaccine 4 09/25/21 Given hepatitis B adult vaccine 5 08/24/21 Given SARS-CoV-2 (COVID-19) Ad26 vaccine 11/22/20 Record ed SARS-CoV-2 (COVID-19) Ad26 vaccine 11/22/20 Record ed tetanus/diphtheria/pertussis, acel(Tdap) 07/21/18 Given 1Result Comment: [facility]-[id number] 2Result Comment: [facility]-[id number] 3Result Comment: [id number] 4Result Comment: [facility]-[id number] 5Result Comment: [id number] Medications doxycycline monohydrate 100 mg oral capsule 0 Refills, Maintenance, 08/06/23 15:39:00 EST, Partial fill upon patient request if the prescription is for a schedule II opioid drug. Start Date: 08/06/23 Status: Ordered hydrochlorothiazide-valsartan 12.5 mg-160 mg oral tablet 1 tablet, By Mouth, Daily, for 90 days, # 90 tablet, 3 Refills, Hard Stop 11/30/23 11:40:00 EDT, 12/05/22 11:40:00 EDT, Tablet, [facility] #[id number], Partial fill upon patient request if the [...] [Reference Range]: 1 2 Height 182.5 cm (08/16/23 1:08 PM) 182.5 cm (08/16/23 1:03 PM) Weight 116.9 kg (08/16/23 1:03 PM) Oxygen Saturation [94-100 %] 98 % (08/16/23 1:03 PM) Pulse Rate [55-90 bpm] 85 bpm (08/16/23 1:03 PM) Body Mass Index [18.5-24.99 kg/m2] 35.1 kg/m2 *>HHI* (08/16/23 1:03 PM) Blood Pressure [90-138/55-84 mm Hg] 125/ 86mm Hg (08/16/23 1:08 PM) 143/90mm Hg *H* (08/16/23 1:03 PM) Mode of Delivery (Oxygen) Room air (08/16/23 1:03 PM) Blood pressure sites Arm, left (08/16/23 1:08 PM) Arm, left (08/16/23 1:03 PM) Weight Obtained Via Standing scale (08/16/23 1:03 PM) Social History Social History Type Response Tobacco Other: quit igh t smoker. Sex Patient Care team information Care Team Personnel Name: Juan Saldaña MD Position: S Physician - Primary Care Member Role: PCP Address: Address: [address] [place] [address]- Care Team Related Persons Name: BERT FREGOSO Name: CASANDRA SHERWOOD Address: [address] [place] [address] Name: JUNE SHERWOOD Name: JYOTI DE LA CRUZ
--- OUTSIDE RECORDS SUMMARY | 2024-02-27 09:44 | XMS_ITS | Continuity of Care Document ---
Author Organization [facility] Clay Franklyn lt Address [address] [place] [address]- Care Team Providers Care Embroidery Supervisor Name Role Phone Pilar CORDOVA, Spencer Butler Primary Care Physician Encounter [facility] Date(s): 07/24/21 - 08/23/21 [facility] Adult [address] [place] [address]- Allergies, Adverse Reactions, Alerts No Known Medication [...]
--- OUTSIDE RECORDS SUMMARY | 2024-02-27 09:44 | XMS_ITS | Continuity of Care Document ---
Author Organization [facility] Clay Franklyn lt Address [address] [place] [address]- Care Team Providers Care Paper Mill Supervisor Name Role Phone Spencer Quezada MD Primary Care Physician Encounter [facility] [place] Date(s): 12/19/21 - 12/26/21 [facility] [place] Adult [address] [place] [address]- Encounter Diagnosis Benign hypertension(Discharge Diagnosis) - 12/15/21 Fatty liver(Discharge Diagnosis) - 12/15/21 Erythrocytosis(Discharge Diagnosis) - 12/19/21 Low vitamin D level(Discharge Diagnosis) - 12/19/21 Attending Physician: Spencer Quezada MD Allergies, Adverse [...] ed tetanus/diphtheria/pertussis, acel(Tdap) 07/21/18 Given 1Result Comment: [id number] 2Result Comment: [id number] 3Result Comment: [id number] Medications Vitamin D2 2000 intl units oral [...] Clinical Service Informant Benign hypertension Discharge Diagnosis 12/15/21 Fatty liver Discharge Diagnosis 12/15/21 Erythrocytosis Discharge Diagnosis 12/19/21 Low vitamin D level Discharge Diagnosis 12/19/21 Procedures Procedure Date Related Diagnosis Body Site Status Electrocardiogram 1 12/11/21 Compl eted MRI of lumbar spine l5-s1 narrow 2 Completed [id number] Ventricular Rate: 95 BPM Atrial Rate: 95 BPM P-R Interval: 154 ms QRS Duration: 92 ms Q-T Interval: 360 ms QTC Calculation(Bazett): 452 ms P [place]: 47 degrees R [place]: -38 degrees T [place]: 8 degrees Normal sinus rhythm Left axis deviation Abnormal ECG When compared with ECG of 23-MAY-2021 11:33, No significant change was found Confirmed by LUIS MIGUEL SULLIVAN ([id number]) on 12/14/2021 2:24:01 AM [place]: LUIS MIGUEL SULLIVAN ECG 12-Lead Please click on pdf link to open report 2Degenerative changes of the lumbar spine without nerve root impingement. Foraminal narrowing is most pronounced on the right at L5-S1. Vital Signs Most recent to oldest [Reference Range]: 1 2 Height 183 cm (12/19/21 3:29 PM) 183 cm (12/19/21 3:13 PM) Weight 117.2 kg (12/19/21 3:13 PM) Oxygen Saturation [94-100 %] 97 % (12/19/21 3:13 PM) Pulse Rate [55-90 bpm] 107 bpm *H* (12/19/21 3:13 PM) Body Mass Index [18.5-24.99] 35 *>HHI* (12/19/21 3:13 PM) Blood Pressure [90-138/55-84 mm Hg] 134/ 84mm Hg (12/19/21 3:29 PM) 148/110mm Hg *H* (12/19/21 3:13 PM) Respiratory Rate [16-30 br/min] 16 br/mi n (12/19/21 3:13 PM) Mode of Delivery (Oxygen) Room air (12/19/21 3:13 PM) Blood pressure sites Arm, left (12/19/21 3:29 PM) Arm, left (12/19/21 3:13 PM) Temperature Route Oral (12/19/21 3:13 PM) Weight Obtained Via Standing scale (12/19/21 3:13 PM) Social History Social History Type Response Tobacco Other: quit igh t smoker. Sex
--- OUTSIDE RECORDS SUMMARY | 2024-02-27 09:44 | XMS_ITS | Continuity of Care Document ---
Author Organization [facility] Franklyn lt Address [address] [place] [address]- Care Team Providers Care Automotive Machinist Apprentice Name Role Phone Pilar CORDOVA, Spencer Butler Primary Care Physician [phone] Encounter [facility] Date(s): 12/22/21 - 01/21/22 [facility] Adult [address] [place] [address]- Allergies, Adverse Reactions, Alerts Substance Reaction Severity Status amLODIPine Active Immunizations Given and Recorded Vaccine Date Status Refusal Reason hepatitis B adult vaccine 1 09/25/21 Given hepatitis B adult vaccine 2 08/24/21 Given Hepatitis A Adult Vaccine 3 08/24/21 Given SARS-CoV-2 (COVID-19) Ad26 vaccine 11/22/20 Record ed SARS-CoV-2 (COVID-19) Ad26 vaccine 11/22/20 Record ed tetanus/diphtheria/pertussis, acel(Tdap) 07/21/18 Given 1Result Comment: [id number] 2Result Comment: [id number] 3Result Comment: [id number] Medications Vitamin D2 2000 intl units oral [...]
--- OUTSIDE RECORDS SUMMARY | 2024-02-27 09:44 | XMS_ITS | Continuity of Care Document ---
Author Organization [facility] [place] lt Address [address] [place] [address]- Care Team Providers Care Abrasive Wheel Molder Name Role Phone Juan Saldaña MD Primary Care Physician [place] [facility] [place](s): 10/10/23 - 10/17/23 [facility] Adult [address] [place] [address]- Attending Physician: Juan Saldaña MD Allergies, Adverse Reactions, Alerts Substance Reaction Severity Status amoxicillin Active amLODIPine Active Immunizations Given and Recorded Vaccine Date Status Refusal Reason SARS-CoV-2 mRNA (vbzisgv-ppcx-eytml) vax 1 02/21/22 Given Hepatitis A Adult Vaccine 2 02/21/22 Given Hepatitis A Adult Vaccine 3 08/24/21 Given hepatitis B adult vaccine 4 09/25/21 Given hepatitis B adult vaccine 5 08/24/21 Given SARS-CoV-2 (COVID-19) Ad26 vaccine 11/22/20 Record ed SARS-CoV-2 (COVID-19) Ad26 vaccine 11/22/20 Record ed tetanus/diphtheria/pertussis, acel(Tdap) 07/21/18 Given 1Result Comment: [facility]-[id number] 2Result Comment: [facility]-[id number] 3Result Comment: [id number] 4Result Comment: [facility]-[id number] 5Result Comment: [id number] Medications hydrochlorothiazide-valsartan 12.5 mg-160 mg oral tablet 1 tablet, By Mouth, Daily, for 90 days, # 90 tablet, 1 Refills, Hard Stop 04/05/24 12:27:00 EDT, 10/08/23 12:27:00 EST, Tablet, [id number], [facility] fill [...] oldest [Reference Range]: 1 Height 182.5 cm (10/10/23 2:54 PM) Weight 118.7 kg (10/10/23 2:54 PM) Oxygen Saturation [94-100 %] 98 % (10/10/23 2:54 PM) Pulse Rate [55-90 bpm] 92 bpm *H* (10/10/23 2:54 PM) Body Mass Index [18.5-24.99 kg/m2] 35.64 kg/m2 *>HHI* (10/10/23 2:54 PM) Blood Pressure [90-138/55-84 mm Hg] 135/ 82mm Hg (10/10/23 2:54 PM) Temperature [96.8-100.4 DegF] 98.7 DegF (10/10/23 2:54 PM) Mode of Delivery (Oxygen) Room air (10/10/23 2:54 PM) Blood pressure sites Arm, left (10/10/23 2:54 PM) Temperature Route Oral (10/10/23 2:54 PM) Weight Obtained Via Standing scale (10/10/23 2:54 PM) Social History Social History Type Response Tobacco Other: quit igh t smoker. Sex Patient Care team information Care Team Personnel Name: Piotr CORDOVA, Juan Walker Position: [facility] Physician - Primary Care Member Role: PCP Address: Address: [address] [place] [address]- Care Team Related Persons Name: BERT SAINZ Address: [place] [address] Name: CASANDRA SHERWOOD Address: home [address] [place] [address] Name: JUNE SHERWOOD Name: JYOTI DE LA CRUZ
--- OUTSIDE RECORDS SUMMARY | 2024-02-27 09:44 | XMS_ITS | Continuity of Care Document ---
Author Organization [facility] Address [address] [place] [address]- Care Team Providers Care Earth Sciences Professor Name Role Phone Piotr CORDOVA, Juan Walker Primary Care Physician [phone] Encounter [facility] [place] Date(s): 09/06/23 - 10/06/23 [facility] [address] [place] [address] Attending Physician: Deirdre Bueno Admitting Physician: AdmDeirdre mg Referring Physician: AdmtrDeirdre Allergies, Adverse Reactions, Alerts Substance Reaction Severity Status amoxicillin Active amLODIPine Active Immunizations Given and Recorded Vaccine Date Status Refusal Reason SARS-CoV-2 mRNA (cxhtqbo-necb-plpxl) vax 1 02/21/22 Given Hepatitis A Adult Vaccine 2 02/21/22 Given Hepatitis A Adult Vaccine 3 08/24/21 Given hepatitis B adult vaccine 4 09/25/21 Given hepatitis B adult vaccine 5 08/24/21 Given SARS-CoV-2 (COVID-19) Ad26 vaccine 11/22/20 Record ed SARS-CoV-2 (COVID-19) Ad26 vaccine 11/22/20 Record ed tetanus/diphtheria/pertussis, acel(Tdap) 07/21/18 Given 1Result Comment: [facility]-[id number] 2Result Comment: [facility]-[id number] 3Result Comment: [id number] 4Result Comment: [facility]-[id number] 5Result Comment: [facility]-[id number] Medications hydrochlorothiazide-valsartan 12.5 mg-160 mg oral tablet [...] Primary Care Member Role: PCP Address: Address: [address] [place] [address]- Care Team Related Persons Name: BERT FREGOSO Name: CASANDRA SHERWOOD Address: home [address] [place] [address] Name: JUNE SHERWOOD Name: JYOTI DE LA CRUZ
--- OUTSIDE RECORDS SUMMARY | 2024-02-27 09:44 | XMS_ITS | Continuity of Care Document ---
Author Organization [facility] [place] lt Address [address] [place] [address]- Care Team Providers Care Alteration Manager Name Role Phone Piotr CORDOVA, Juan Walker Primary Care Physician [place] [facility] [place] Date(s): 09/17/23 - 10/17/23 [facility] Mohan Williamson Adult [address] [place] [address]- Allergies, Adverse Reactions, Alerts Substance Reaction Severity Status amoxicillin Active amLODIPine Active Immunizations Given and Recorded Vaccine Date Status Refusal Reason SARS-CoV-2 mRNA (mnqxfmm-itwe-ngcgs) vax 1 02/21/22 Given Hepatitis A Adult Vaccine 2 02/21/22 Given Hepatitis A Adult Vaccine 3 08/24/21 Given hepatitis B adult vaccine 4 09/25/21 Given hepatitis B adult vaccine 5 08/24/21 Given SARS-CoV-2 (COVID-19) Ad26 vaccine 11/22/20 Record ed SARS-CoV-2 (COVID-19) Ad26 vaccine 11/22/20 Record ed tetanus/diphtheria/pertussis, acel(Tdap) 07/21/18 Given 1Result Comment: [facility]-[id number] 2Result Comment: [facility]-[id number] 3Result Comment: [id number] 4Result Comment: [id number] 5Result Comment: [id number] Medications hydrochlorothiazide-valsartan 12.5 mg-160 mg oral tablet 1 tablet, By Mouth, Daily, for 90 days, # 90 tablet, 1 Refills, Hard Stop 04/05/24 12:27:00 EDT, 10/08/23 12:27:00 EST, [facility]t, [id number], Partial fill upon patient request if the [...] Team Personnel Name: Juan Saldaña MD Position: [facility] Physician - Primary Care Member Role: PCP Address: Address: [address] [place] [address]- Care Team Related Persons Name: BERT SAINZ Address: [facility] [place] [address] Name: CASANDRA SHERWOOD Address: home [address] [place] [address] Name: JUNE SHERWOOD Name: JYOTI DE LA CRUZ
--- OUTSIDE RECORDS SUMMARY | 2024-02-27 09:44 | XMS_ITS | Continuity of Care Document ---
Author Organization [facility] [place] lt Address [address] [place] [address]- Care Team Providers Care Inspection Engineer Name Role Phone Pilar CORDOVA, Spencer Butler Primary Care Physician [place] [facility] [place]21 - 09/27/21 [facility] [place] Adult [address] [place] [address]- Allergies, Adverse Reactions, Alerts Substance Reaction Severity [...] Given 1Result Comment: [facility]-[id number] 2Result Comment: [facility]-[id number] 3Result Comment: [id number] Medications Azithromycin 5 Day Dose Pack 250 [...]
--- OUTSIDE RECORDS SUMMARY | 2024-02-27 09:44 | XMS_ITS | Continuity of Care Document ---
Author Organization [facility] Mohan Williamson [place] lt Address [address] [place] [address]- Care Team Providers Care Wheelchair Rental Clerk Name Role Phone Juan Saldaña MD Primary Care Physician Encounter [facility] Date(s): 11/15/23 - 11/22/23 [facility] Williamson Adult [address] [place] [address]- Encounter Diagnosis Cervical stenosis of spine(Discharge Diagnosis) - 11/17/23 Lumbar degenerative disc disease(Discharge Diagnosis) - 11/17/23 Benign hypertension(Discharge Diagnosis) - 11/17/23 Allergic rhinitis, seasonal(Discharge Diagnosis) - 11/17/23 Attending Physician: Juan Saldaña MD Allergies, Adverse Reactions, Alerts Substance Reaction Severity Status amoxicillin Active amLODIPine Active Immunizations Given and Recorded Vaccine Date Status Refusal Reason SARS-CoV-2 mRNA (umnictr-eplb-soqsn) vax 1 02/21/22 Given Hepatitis A Adult Vaccine 2 02/21/22 Given Hepatitis A Adult Vaccine 3 08/24/21 Given hepatitis B adult vaccine 4 09/25/21 Given hepatitis B adult vaccine 5 08/24/21 Given SARS-CoV-2 (COVID-19) Ad26 vaccine 11/22/20 Record ed SARS-CoV-2 (COVID-19) Ad26 vaccine 11/22/20 Record ed tetanus/diphtheria/pertussis, acel(Tdap) 07/21/18 Given 1Result Comment: [facility]-[id number] 2Result Comment: [facility]-[id number] 3Result Comment: [id number] 4Result Comment: [facility]-[id number] 5Result Comment: [id number] Medications hydrochlorothiazide-valsartan 12.5 mg-160 mg oral tablet 1 tablet, By Mouth, Daily, for 90 days, # 90 tablet, 1 Refills, Hard Stop 04/05/24 12:27:00 EDT, 10/08/23 12:27:00 EST, Tablet, [facility] #[id number], Partial fill upon patient request if the [...] Informant Cervical stenosis of spine Discharge Diagnosis 11/17/23 Lumbar degenerative disc disease Discharge Diagnosis 11/17/23 Benign hypertension Discharge Diagnosis 11/17/23 Allergic rhinitis, seasonal Discharge Diagnosis 11/17/23 Vital Signs Most recent to oldest [Reference Range]: 1 2 Height 182.5 cm (11/15/23 1:16 PM) 182.5 cm (11/15/23 1:13 PM) Weight 119.7 kg (11/15/23 1:13 PM) Oxygen Saturation [94-100 %] 95 % (11/15/23 1:13 PM) Pulse Rate [55-90 bpm] 91 bpm *H* (11/15/23 1:13 PM) Body Mass Index [18.5-24.99 kg/m2] 35.94 kg/m2 *>HHI* (11/15/23 1:13 PM) Blood Pressure [90-138/55-84 mm Hg] 104/ 74mm Hg (11/15/23 1:16 PM) 146/78mm Hg *H* (11/15/23 1:13 PM) Mode of Delivery (Oxygen) Room air (11/15/23 1:13 PM) Blood pressure sites Arm, left (11/15/23 1:16 PM) Arm, left (11/15/23 1:13 PM) Weight Obtained Via Standing scale (11/15/23 1:13 PM) Social History Social History Type Response Tobacco Other: quit igh t smoker. Sex Patient Care team information Care Team Personnel Name: Piotr CORDOVA, Juan Walker Position: [facility] Physician - Primary Care Member Role: PCP Address: Address: [address] [place] [address]- Care Team Related Persons Name: BERT SAINZ Address: [facility] [place] [address] Name: CASANDRA SHERWOOD Address: [address] [address] Name: JUNE SHERWOOD Name: JYOTI DE LA CRUZ
--- OUTSIDE RECORDS SUMMARY | 2024-02-27 09:44 | XMS_ITS | Continuity of Care Document ---
Author Organization [facility] [place] lt Address [address] [place] [address]- Care Team Providers Care Mechanical Test Technician Name Role Phone Spencer Quezada MD Primary Care Physician [phone] [place] [facility] [place] Date(s): 01/31/22 - 02/07/22 [facility] Adult [address] [place] [address]- Encounter Diagnosis Rhus dermatitis(Discharge Diagnosis) - 01/31/22 Attending Physician: Spencer Quezada MD Allergies, Adverse [...] ed tetanus/diphtheria/pertussis, acel(Tdap) 07/21/18 Given 1Result Comment: [id number] 2Result Comment: [id number] 3Result Comment: [id number] Medications predniSONE 20 mg oral tablet 1 tablet = 20 mg, By Mouth, 2 times a day, with food or milk, # 20 tablet, 0 Refills, Maintenance, 01/31/22 10:01:00 EDT, Tablet, [id number], Partial fill upon [...] Dates Health Status Cl inical Service Informant Rhus dermatitis Discharge Diagnosis 01/31/22 Social History Social History Type Response Tobacco Other: quit igh t smoker. Sex
--- OUTSIDE RECORDS SUMMARY | 2024-02-27 09:44 | XMS_ITS | Continuity of Care Document ---
Author Organization [facility] Address [address] [address]- Care Team Providers Care Drier Belt Conveyor Name Role Phone Piotr CORDOVA, Juan Walker Primary Care Physician Encounter [facility] Date(s): 01/22/24 - 01/29/24 [facility] [address] [address]- [place] Encounter Diagnosis Benign hypertension(Discharge Diagnosis) - 01/24/24 Mitral prolapse.MR ECHO 2020(Discharge Diagnosis) - 01/24/24 LVH (left ventricular hypertrophy)(Discharge Diagnosis) - 01/24/24 Attending Physician: Sheila Choudhary Admitting Physician: Sheila Choudhary Referring Physician: Juan Saldaña MD Allergies, Adverse Reactions, Alerts Substance Reaction Severity Status amoxicillin Active amLODIPine Active Immunizations Given and Recorded Vaccine Date Status Refusal Reason SARS-CoV-2 mRNA (iqzrdak-uemv-aoont) vax 1 02/21/22 Given Hepatitis A Adult Vaccine 2 02/21/22 Given Hepatitis A Adult Vaccine 3 08/24/21 Given hepatitis B adult vaccine 4 09/25/21 Given hepatitis B adult vaccine 5 08/24/21 Given SARS-CoV-2 (COVID-19) Ad26 vaccine 11/22/20 Record ed SARS-CoV-2 (COVID-19) Ad26 vaccine 11/22/20 Record ed tetanus/diphtheria/pertussis, acel(Tdap) 07/21/18 Given 1Result Comment: [facility]-[id number] 2Result Comment: [facility]-[id number] 3Result Comment: [id number] 4Result Comment: [id number] 5Result Comment: [id number] Medications hydrochlorothiazide-valsartan 12.5 mg-160 mg oral tablet 1 tablet, By Mouth, Daily, for 90 days, # 90 tablet, 1 Refills, Hard Stop 04/05/24 12:27:00 EDT, 10/08/23 12:27:00 EST, Tablet, [facility]/pharmacy #[id number], Partial fill upon patient request if [...] each, 0 Refills, Maintenance, 01/27/24 10:21:00 EDT, [facility]/pharmacy #[id number], Colonoscopy date 02/06/24 ; may substitute... [...] Clinical Service Informant Benign hypertension Discharge Diagnosis 01/24/24 Mitral prolapse.MR ECHO 2020 Discharge Diagnosis 01/24/24 LVH (left ventricular hypertrophy) Discharge Diagnosis 01/24/24 Social History Social History Type Response Tobacco Other: quit igh t smoker. Sex Patient Care team information Care Team Personnel Name: Juan Saldaña MD Position: S Physician - Primary Care Member Role: PCP Address: Address: [address] [place] [address] [place] [address]- [place] Care Team Related Persons Name: BERT SAINZ Address: home [facility] [address] Name: CASANDRA SHERWOOD Address: home [address] [place] [address] Name: JUNE SHERWOOD Name: JYOTI DE LA CRUZ
--- OUTSIDE RECORDS SUMMARY | 2024-02-27 09:44 | XMS_ITS | Continuity of Care Document ---
Author Organization [facility] Clay [place] lt Address [address] [place] [address]- Care Team Providers Care Extension Service Specialist Name Role Phone Spencer Quezada MD Primary Care Physician [phone] [facility] [id number] Date(s): 09/25/21 - 10/02/21 [facility] Adult [address] [place] [address]- Attending Physician: Spencer Quezada MD Allergies, Adverse [...] tetanus/diphtheria/pertussis, acel(Tdap) 07/21/18 Given 1Result Comment: [facility]-[id number] 2Result Comment: [facility]-[id number] 3Result Comment: [id number] Medications Azithromycin 5 Day Dose Pack 250 mg oral tablet 1 pack/packet, By Mouth, Once, as directed on package labeling, # 6 tablet, 0 Refills, Soft Stop, 09/25/21 16:01:00 EST, Tablet, [id number], 183, cm, 09/25/21 15:49:00 EST, Height Start Date: 09/25/21 Status: Ordered Problem List Condition Effective Dates Status Health Status Inform ant Benign hypertension(Confirmed) Active COVID-19(Confirmed) 1/10/22 Active Ex-cigarette smoker(Confirmed) 04/26/21 Active Mold exposure(Confirmed) [...]
--- OUTSIDE RECORDS SUMMARY | 2024-02-27 09:44 | XMS_ITS | Continuity of Care Document ---
Author Organization [facility] [place] lt Address [address] [place] [address]- Care Team Providers Care Commissioner Of Internal Revenue Name Role Phone Pilar CORDOVA, Spencer Butler Primary Care Physician Encounter [facility] [place] Date(s): 03/05/22 - 04/04/22 [facility] Adult [address] [place] [address]- Allergies, Adverse Reactions, Alerts Substance Reaction Severity Status amLODIPine Active Immunizations Given and Recorded Vaccine Date Status Refusal Reason SARS-CoV-2 mRNA (adimcjv-nhnn-xudkq) vax 1 02/21/22 Given Hepatitis A Adult Vaccine 2 02/21/22 Given Hepatitis A Adult Vaccine 3 08/24/21 Given hepatitis B adult vaccine 4 09/25/21 Given hepatitis B adult vaccine 5 08/24/21 Given SARS-CoV-2 (COVID-19) Ad26 vaccine 11/22/20 Record ed SARS-CoV-2 (COVID-19) Ad26 vaccine 11/22/20 Record ed tetanus/diphtheria/pertussis, acel(Tdap) 07/21/18 Given 1Result Comment: [facility]-[id number] 2Result Comment: [facility]-[id number] 3Result Comment: [id number] 4Result Comment: [id number] 5Result Comment: [id number] Medications Vitamin D2 2000 intl units oral [...]
--- OUTSIDE RECORDS SUMMARY | 2024-02-27 09:45 | XMS_ITS | Continuity of Care Document ---
Author Organization [facility] [place] lt Address [address] [place] [address]- Care Team Providers Care Gasket Former Name Role Phone Pilar CORDOVA, Spencer Butler Primary Care Physician Encounter [facility] [place] Date(s): 12/29/21 - 01/28/22 [facility] Adult [address] [place] [address]- Allergies, Adverse Reactions, Alerts Substance Reaction Severity Status amLODIPine Active Immunizations Given and Recorded Vaccine Date Status Refusal Reason hepatitis B adult vaccine 1 09/25/21 Given hepatitis B adult vaccine 2 08/24/21 Given Hepatitis A Adult Vaccine 3 08/24/21 Given SARS-CoV-2 (COVID-19) Ad26 vaccine 11/22/20 Record ed SARS-CoV-2 (COVID-19) Ad26 vaccine 11/22/20 Record ed tetanus/diphtheria/pertussis, acel(Tdap) 07/21/18 Given 1Result Comment: [id number] 2Result Comment: [id number] 3Result Comment: [id number] Medications Vitamin D2 2000 intl units oral [...]
--- OUTSIDE RECORDS SUMMARY | 2024-02-27 09:45 | XMS_ITS | Continuity of Care Document ---
Author Organization [facility] Address [address] [address]- Care Team Providers Care Municipal Engineer Name Role Phone Piotr CORDOVA, Juan Walker Primary Care Physician [facility] [facility] [place] Date(s): 12/17/22 - 01/16/23 [facility] [address] [address]- Attending Physician: Admtr, Deirdre Admitting Physician: AdmtrDeirdre Referring Physician: Admtr, Ar8 Allergies, Adverse Reactions, Alerts Substance Reaction Severity Status amLODIPine Active Immunizations Given and Recorded Vaccine Date Status Refusal Reason SARS-CoV-2 mRNA (lsxefmc-ngku-zyiqu) vax 1 02/21/22 Given Hepatitis A Adult Vaccine 2 02/21/22 Given Hepatitis A Adult Vaccine 3 08/24/21 Given hepatitis B adult vaccine 4 09/25/21 Given hepatitis B adult vaccine 5 08/24/21 Given SARS-CoV-2 (COVID-19) Ad26 vaccine 11/22/20 Record ed SARS-CoV-2 (COVID-19) Ad26 vaccine 11/22/20 Record ed tetanus/diphtheria/pertussis, acel(Tdap) 07/21/18 Given 1Result Comment: [facility]-[id number] 2Result Comment: [facility]-[id number] 3Result Comment: [id number] 4Result Comment: [facility]-[id number] 5Result Comment: [facility]-[id number] Medications hydrochlorothiazide-valsartan 12.5 mg-160 mg oral tablet 1 tablet, By Mouth, Daily, # 90 tablet, 3 Refills, Maintenance, 11/30/23 11:40:00 EDT, Tablet, [id number], Partial fill upon patient request if the prescription is for a schedule II opioid drug., 1 tablet By Mouth Daily,x90 days, 183, cm, 12/17... Start Date: 11/30/23 Stop Date: 11/24/24 Status: Ordered hydrochlorothiazide-valsartan 12.5 mg-160 mg oral tablet 1 tablet, By Mouth, Daily, for 90 days, # 90 tablet, 3 Refills, Hard Stop 11/30/23 11:40:00 EDT, 12/05/22 11:40:00 EDT, Tablet, [facility]/pharmacy #[id number], Partial fill upon patient request if [...] Team Personnel Name: Juan Saldaña MD Position: [facility] Physician - Primary Care Member Role: PCP Address: Address: [address] [place] [address]- Care Team Related Persons Name: BERT FREGOSO Name: CASANDRA SHERWOOD Address: home [address] [place] [address] Name: JUNE SHERWOOD Name: JYOTI DE LA CRUZ
--- OUTSIDE RECORDS SUMMARY | 2024-02-27 09:45 | XMS_ITS | Continuity of Care Document ---
Author Organization [facility] [place] lt Address [address] [place] [address]- Care Team Providers Care Coke Drawer Name Role Phone Juan Saldaña MD Primary Care Physician [place] [facility] [place] 05/22/23 [facility] Adult [address] [place] [address]- Attending Physician: Juan Saldaña MD Allergies, Adverse Reactions, Alerts Substance Reaction Severity Status amLODIPine Active Immunizations Given and Recorded Vaccine Date Status Refusal Reason SARS-CoV-2 mRNA (mqwhrlf-jics-ooclg) vax 1 02/21/22 Given Hepatitis A Adult Vaccine 2 02/21/22 Given Hepatitis A Adult Vaccine 3 08/24/21 Given hepatitis B adult vaccine 4 09/25/21 Given hepatitis B adult vaccine 5 08/24/21 Given SARS-CoV-2 (COVID-19) Ad26 vaccine 11/22/20 Record ed SARS-CoV-2 (COVID-19) Ad26 vaccine 11/22/20 Record ed tetanus/diphtheria/pertussis, acel(Tdap) 07/21/18 Given 1Result Comment: [facility]-[id number] 2Result Comment: [id number] 3Result Comment: [id number] 4Result Comment: [id number] 5Result Comment: [id number] Medications clindamycin 1% topical lotion 1 application, Topically, 2 times a day, # 60 mL, 5 Refills, Maintenance, 03/20/23 6:15:00 EDT, Lotion, [id number], Partial fill upon patient request if the [...] oldest [Reference Range]: 1 Height 183 cm (05/15/23 11:51 AM) Weight 116.7 kg (05/15/23 11:51 AM) Oxygen Saturation [94-100 %] 96 % (05/15/23 11:51 AM) Pulse Rate [55-90 bpm] 77 bpm (05/15/23 11:51 AM) Body Mass Index [18.5-24.99 kg/m2] 34.85 kg/m2 *>HHI* (05/15/23 11:51 AM) Blood Pressure [90-138/55-84 mm Hg] 132/ 87mm Hg (05/15/23 11:51 AM) Mode of Delivery (Oxygen) Room air (05/15/23 11:51 AM) Blood pressure sites Arm, left (05/15/23 11:51 AM) Weight Obtained Via Standing scale (05/15/23 11:51 AM) Social History Social History Type Response Tobacco Other: quit igh t smoker. Sex Patient Care team information Care Team Personnel Name: Juan Saldaña MD Position: S Physician - Primary Care Member Role: PCP Address: Address: [address] [place] [address]- Care Team Related Persons Name: BERT FREGOSO Name: CASANDRA SHERWOOD Address: home [address] [place] [address] Name: JUNE SHERWOOD Name: JYOTI DE LA CRUZ
--- OUTSIDE RECORDS SUMMARY | 2024-02-27 09:45 | XMS_ITS | Continuity of Care Document ---
Author Organization [facility] [place] Address [address] [place] [address]- Care Team Providers Care Electric Motor Repair Supervisor Name Role Phone Piotr CORDOVA, Juan Walker Primary Care Physician Encounter [facility] Date(s): 12/02/23 - 01/01/24 [facility] Adult [address] [place] [address]- Allergies, Adverse Reactions, Alerts Substance Reaction Severity Status amoxicillin Active amLODIPine Active Immunizations Given and Recorded Vaccine Date Status Refusal Reason SARS-CoV-2 mRNA (euxmnra-bizm-pzxad) vax 1 02/21/22 Given Hepatitis A Adult Vaccine 2 02/21/22 Given Hepatitis A Adult Vaccine 3 08/24/21 Given hepatitis B adult vaccine 4 09/25/21 Given hepatitis B adult vaccine 5 08/24/21 Given SARS-CoV-2 (COVID-19) Ad26 vaccine 11/22/20 Record ed SARS-CoV-2 (COVID-19) Ad26 vaccine 11/22/20 Record ed tetanus/diphtheria/pertussis, acel(Tdap) 07/21/18 Given 1Result Comment: [facility]-[id number] 2Result Comment: [facility]-[id number] 3Result Comment: [id number] 4Result Comment: [id number] 5Result Comment: [id number] Medications hydrochlorothiazide-valsartan 12.5 mg-160 mg oral tablet 1 tablet, By Mouth, Daily, for 90 days, # 90 tablet, 1 Refills, Hard Stop 04/05/24 12:27:00 EDT, 10/08/23 12:27:00 EST, Tablet, [id number], Partial fill upon patient request if the [...] Team Personnel Name: Juan Saldaña MD Position: [facility] Physician - Primary Care Member Role: PCP Address: Address: [address] [place] [address]- Care Team Related Persons Name: BERT SAINZ Address: [facility] [place] [address] Name: CASANDRA SHERWOOD Address: home [address] [place] [address] Name: JUNE SHERWOOD Name: JYOTI DE LA CRUZ
--- OUTSIDE RECORDS SUMMARY | 2024-02-27 09:45 | XMS_ITS | Continuity of Care Document ---
Author Organization [facility] Address [address] [place] [address]- Care Team Providers Care Concrete Bucket Hooker Name Role Phone Piotr CORDOVA, Juan Walker Primary Care Physician [place] [facility] [place] 09/29/23 [facility] [address], [place] [address] Attending Physician: Justin Anthony DO Referring Physician: Sarbjit Grover MD Allergies, Adverse Reactions, Alerts Substance Reaction Severity Status amoxicillin Active amLODIPine Active Immunizations Given and Recorded Vaccine Date Status Refusal Reason SARS-CoV-2 mRNA (pmdzrno-rycy-jzjfs) vax 1 02/21/22 Given Hepatitis A Adult Vaccine 2 02/21/22 Given Hepatitis A Adult Vaccine 3 08/24/21 Given hepatitis B adult vaccine 4 09/25/21 Given hepatitis B adult vaccine 5 08/24/21 Given SARS-CoV-2 (COVID-19) Ad26 vaccine 11/22/20 Record ed SARS-CoV-2 (COVID-19) Ad26 vaccine 11/22/20 Record ed tetanus/diphtheria/pertussis, acel(Tdap) 07/21/18 Given 1Result Comment: [facility]-[id number] 2Result Comment: [facility]-[id number] 3Result Comment: [id number] 4Result Comment: [facility]-[id number] 5Result Comment: [id number] Medications hydrochlorothiazide-valsartan 12.5 mg-160 mg oral tablet [...] Personnel Name: Piotr CORDOVA, Juan Walker Position: [facility] Physician - Primary Care Member Role: PCP Address: Address: [address] [place] [address]- Care Team Related Persons Name: BERT FREGOSO Name: CASANDRA SHERWOOD Address: home [address] [place] [address] Name: JUNE SHERWOOD Name: JYOTI DE LA CRUZ
--- OUTSIDE RECORDS SUMMARY | 2024-02-27 09:45 | XMS_ITS | Continuity of Care Document ---
Author Organization [facility] lt Address [address] [place] [address]- Care Team Providers Care Hydramatic Mechanic Name Role Phone Juan Saldaña MD Primary Care Physician [place] [facility] [place] 01/11/23 [facility] Adult [address] [place] [address]- Attending Physician: Juan Saldaña MD Allergies, Adverse Reactions, Alerts Substance Reaction Severity Status amLODIPine Active Immunizations Given and Recorded Vaccine Date Status Refusal Reason SARS-CoV-2 mRNA ([id number]-kvfa-tkxws) vax 1 02/21/22 Given Hepatitis A Adult Vaccine 2 02/21/22 Given Hepatitis A Adult Vaccine 3 08/24/21 Given hepatitis B adult vaccine 4 09/25/21 Given hepatitis B adult vaccine 5 08/24/21 Given SARS-CoV-2 (COVID-19) Ad26 vaccine 11/22/20 Record ed SARS-CoV-2 (COVID-19) Ad26 vaccine 11/22/20 Record ed tetanus/diphtheria/pertussis, acel(Tdap) 07/21/18 Given 1Result Comment: [facility]-[id number] 2Result Comment: [facility]-[id number] 3Result Comment: [id number] 4Result Comment: [id number] 5Result Comment: [id number] Medications hydrochlorothiazide-valsartan 12.5 mg-160 mg oral tablet 1 tablet, By Mouth, Daily, # 90 tablet, 3 Refills, Maintenance, 11/30/23 11:40:00 EDT, Tablet, [id number], Partial fill upon patient request if the prescription is for a schedule II opioid drug., 1 tablet By Mouth Daily,x90 days, 183, cm, 12/17... Start Date: 11/30/23 Stop Date: 11/24/24 Status: Ordered hydrochlorothiazide-valsartan 12.5 mg-160 mg oral tablet 1 tablet, By Mouth, Daily, for 90 days, # 90 tablet, 3 Refills, Hard Stop 11/30/23 11:40:00 EDT, 12/05/22 11:40:00 EDT, Tablet, [facility]/pharmacy #[id number], Partial fill upon patient request if [...] [Reference Range]: 1 2 Height 183 cm (01/04/23 11:36 AM) 183 cm (01/04/23 11:32 AM) Weight 117.4 kg (01/04/23 11:32 AM) Oxygen Saturation [94-100 %] 97 % (01/04/23 11:32 AM) Pulse Rate [55-90 bpm] 76 bpm (01/04/23 11:32 AM) Body Mass Index [18.5-24.99 kg/m2] 35.06 kg/m2 *>HHI* (01/04/23 11:32 AM) Blood Pressure [90-138/55-84 mm Hg] 130/ 81mm Hg (01/04/23 11:36 AM) 137/90mm Hg (01/04/23 11:32 AM) Mode of Delivery (Oxygen) Room air (01/04/23 11:32 AM) Blood pressure sites Arm, right (01/04/23 11:36 AM) Arm, right (01/04/23 11:32 AM) Weight Obtained Via Standing scale (01/04/23 11:32 AM) Social History Social History Type Response Tobacco Other: quit igh t smoker. Sex Patient Care team information Care Team Personnel Name: Juan Saldaña MD Position: [facility] Physician - Primary Care Member Role: PCP Address: Address: [address] [place] [address]- Care Team Related Persons Name: BERT FREGOSO Name: CASANDRA SHERWOOD Address: home [address] [place] [address] Name: JUNE SHERWOOD Name: JYOTI DE LA CRUZ
--- OUTSIDE RECORDS SUMMARY | 2024-02-27 09:45 | XMS_ITS | Continuity of Care Document ---
Author Organization [facility] lt Address [address] [place] [address]- Care Team Providers Care National Flatbed Truck Driver Name Role Phone Juan Saldaña MD Primary Care Physician En[place] [facility] [place](s): 07/04/23 - 07/11/23 [facility] Adult [address] [place] [address]- Encounter Diagnosis Cervical radiculopathy(Discharge Diagnosis) - 07/07/23 Benign hypertension(Discharge Diagnosis) - 07/07/23 Well adult exam(Discharge Diagnosis) - 07/07/23 Attending Physician: Juan Saldaña MD Allergies, Adverse Reactions, Alerts Substance Reaction Severity Status amLODIPine Active Immunizations Given and Recorded Vaccine Date Status Refusal Reason SARS-CoV-2 mRNA (xbpjziq-cmxg-qfymi) vax 1 02/21/22 Given Hepatitis A Adult Vaccine 2 02/21/22 Given Hepatitis A Adult Vaccine 3 08/24/21 Given hepatitis B adult vaccine 4 09/25/21 Given hepatitis B adult vaccine 5 08/24/21 Given SARS-CoV-2 (COVID-19) Ad26 vaccine 11/22/20 Record ed SARS-CoV-2 (COVID-19) Ad26 vaccine 11/22/20 Record ed tetanus/diphtheria/pertussis, acel(Tdap) 07/21/18 Given 1Result Comment: [facility]-[id number] 2Result Comment: [facility]-[id number] 3Result Comment: [id number] 4Result Comment: [id number] 5Result Comment: [id number] Medications hydrochlorothiazide-valsartan 12.5 mg-160 mg oral tablet 1 tablet, By Mouth, Daily, for 90 days, # 90 tablet, 3 Refills, Hard Stop 11/30/23 11:40:00 EDT, 12/05/22 11:40:00 EDT, Tablet, [facility]/pharmacy #[id number], Partial fill upon patient request if the [...] Dates Health Status Clinical Service Informant Cervical radiculopathy Discharge Diagnosis 07/07/23 Benign hypertension Discharge Diagnosis 07/07/23 Well adult exam Discharge Diagnosis 07/07/23 Vital Signs Most recent to oldest [Reference Range]: 1 Height 182.5 cm (07/04/23 12:50 PM) Weight 116.8 kg (07/04/23 12:50 PM) Oxygen Saturation [94-100 %] 96 % (07/04/23 12:50 PM) Pulse Rate [55-90 bpm] 71 bpm (07/04/23 12:50 PM) Body Mass Index [18.5-24.99 kg/m2] 35.07 kg/m2 *>HHI* (07/04/23 12:50 PM) Blood Pressure [90-138/55-84 mm Hg] 126/ 84mm Hg (07/04/23 12:50 PM) Temperature [96.8-100.4 DegF] 97.4 DegF (07/04/23 12:50 PM) Mode of Delivery (Oxygen) Room air (07/04/23 12:50 PM) Blood pressure sites Arm, left (07/04/23 12:50 PM) Temperature Route Temporal (07/04/23 12:50 PM) Weight Obtained Via Standing scale (07/04/23 12:50 PM) Social History Social History Type Response Tobacco Other: quit igh t smoker. Sex Patient Care team information Care Team Personnel Name: Piotr CORDOVA, Juan Walker Position: S Physician - Primary Care Member Role: PCP Address: Address: [address] [place] [address]- Care Team Related Persons Name: BERT FREGOSO Name: CAASNDRA SHERWOOD Address: home [address] [place] [address] Name: JUNE SHERWOOD Name: JYOTI DE LA CRUZ
--- OUTSIDE RECORDS SUMMARY | 2024-02-27 09:45 | XMS_ITS | Continuity of Care Document ---
Author Organization [facility] lt Address [address] [place] [address]- Care Team Providers Care Poultry Husbandman Name Role Phone Juan Saldaña MD Primary Care Physician Encounter [place] Date(s): 09/16/23 - 09/23/23 [facility] Adult [address] [place] [address]- Encounter Diagnosis Cervical radiculopathy(Discharge Diagnosis) - 09/16/23 Benign hypertension(Discharge Diagnosis) - 09/16/23 Attending Physician: Juan Saldaña MD Allergies, Adverse Reactions, Alerts Substance Reaction Severity Status amoxicillin Active amLODIPine Active Immunizations Given and Recorded Vaccine Date Status Refusal Reason SARS-CoV-2 mRNA (xhevfgz-jpnf-kodvj) vax 1 02/21/22 Given Hepatitis A Adult Vaccine 2 02/21/22 Given Hepatitis A Adult Vaccine 3 08/24/21 Given hepatitis B adult vaccine 4 09/25/21 Given hepatitis B adult vaccine 5 08/24/21 Given SARS-CoV-2 (COVID-19) Ad26 vaccine 11/22/20 Record ed SARS-CoV-2 (COVID-19) Ad26 vaccine 11/22/20 Record ed tetanus/diphtheria/pertussis, acel(Tdap) 07/21/18 Given 1Result Comment: [facility]-[id number] 2Result Comment: [facility]-[id number] 3Result Comment: [id number] 4Result Comment: [id number] 5Result Comment: [id number] Medications hydrochlorothiazide-valsartan 12.5 mg-160 mg oral tablet 1 tablet, By Mouth, Daily, for 90 days, # 90 tablet, 3 Refills, Hard Stop 11/30/23 11:40:00 EDT, 12/05/22 11:40:00 EDT, Tablet, [facility]/pharmacy #[id number], Partial fill upon patient request if the [...] Clinical Service Informant Cervical radiculopathy Discharge Diagnosis 09/16/23 Benign hypertension Discharge Diagnosis 09/16/23 Vital Signs Most recent to oldest [Reference Range]: 1 Height 182.5 cm (09/16/23 11:21 AM) Weight 117.8 kg (09/16/23 11:21 AM) Oxygen Saturation [94-100 %] 96 % (09/16/23 11:21 AM) Pulse Rate [55-90 bpm] 92 bpm *H* (09/16/23 11:21 AM) Body Mass Index [18.5-24.99 kg/m2] 35.37 kg/m2 *>HHI* (09/16/23 11:21 AM) Blood Pressure [90-138/55-84 mm Hg] 137/ 91mm Hg (09/16/23 11:21 AM) Temperature [96.8-100.4 DegF] 97.8 DegF (09/16/23 11:21 AM) Mode of Delivery (Oxygen) Room air (09/16/23 11:21 AM) Blood pressure sites Arm, left (09/16/23 11:21 AM) Temperature Route Oral (09/16/23 11:21 AM) Weight Obtained Via Standing scale (09/16/23 11:21 AM) Social History Social History Type Response Tobacco Other: quit igh t smoker. Sex Patient Care team information Care Team Personnel Name: Juan Saldaña MD Position: S Physician - Primary Care Member Role: PCP Address: Address: [address] [place] [address]- Care Team Related Persons Name: BERT FREGOSO Name: CASANDRA SHERWOOD Address: home [address] [place] [address] Name: JUNE SHERWOOD Name: JYOTI DE LA CRUZ
--- OUTSIDE RECORDS SUMMARY | 2024-02-27 09:45 | XMS_ITS | Continuity of Care Document ---
Author [facility] Address [address] [place] [address]- Care Team Providers Care Nurse Name Role Phone Piotr CORDOVA, Juan Walker Primary Care Physician En[place] [facility] [place] Date(s): 11/01/22 - 12/01/22 [facility] Adult [address] [place] [address]- Allergies, Adverse Reactions, Alerts Substance Reaction Severity Status amLODIPine Active Immunizations Given and Recorded Vaccine Date Status Refusal Reason SARS-CoV-2 mRNA (ypjujum-odum-gdgni) vax 1 02/21/22 Given Hepatitis A Adult Vaccine 2 02/21/22 Given Hepatitis A Adult Vaccine 3 08/24/21 Given hepatitis B adult vaccine 4 09/25/21 Given hepatitis B adult vaccine 5 08/24/21 Given SARS-CoV-2 (COVID-19) Ad26 vaccine 11/22/20 Record ed SARS-CoV-2 (COVID-19) Ad26 vaccine 11/22/20 Record ed tetanus/diphtheria/pertussis, acel(Tdap) 07/21/18 Given 1Result Comment: [facility]-[id number] 2Result Comment: [id number] 3Result Comment: [id number] 4Result Comment: [id number] 5Result Comment: [id number] Medications hydrochlorothiazide-valsartan 12.5 mg-160 mg oral tablet 1 tablet, By Mouth, Daily, # 30 tablet, 5 Refills, Maintenance, 04/13/22 11:28:00 EDT, Tablet, [id number], Partial fill upon patient request if the prescription is for a schedule II opioid drug., 1 tablet By Mouth Daily, 183, cm, 04/13/22 11:0... Start Date: 04/13/22 Status: Ordered Problem List Condition Confirmation Course [...] Personnel Name: Piotr CORDOVA, Juan Walker Position: [facility] Primary Care Physician Member Role: PCP Address: Address: [address] [place] [address]- Care Team Related Persons Name: BERT FREGOSO Name: CASANDRA SHERWOOD Address: home [address] [place] [address] Name: JUNE SHERWOOD Name: JYOTI DE LA CRUZ
--- OUTSIDE RECORDS SUMMARY | 2024-02-27 09:45 | XMS_ITS | Continuity of Care Document ---
Author Organization [facility] Frank[facility] lt Address [address] [place] [address]- Care Team Providers Care Outsole Tacker Name Role Phone Pilar CORDOVA, Spencer Butler Primary Care Physician [place] [facility] [place] 06/21/21 - 07/21/21 [facility] Adult [address] [place] [address]- Attending Physician: Admtr, Hayden8 Admitting Physician: AdmtrDeirdre Referring Physician: Admtr, Ar8 [...]
--- OUTSIDE RECORDS SUMMARY | 2024-02-27 09:45 | XMS_ITS | Continuity of Care Document ---
Author Organization [facility] y Address [address] [place] [address] [address], [address] [place] [address]- Care Team Providers Care Store Mgr Name Role Phone Juan Saldaña MD Primary Care Physician [phone] [place] [facility] [place](s[place] 08/23/23 - 11/07/[address], [address] [place], [place] [address] Attending Physician: Sarbjit Grover MD Referring Physician: Juan Saldaña MD Allergies, Adverse Reactions, Alerts Substance Reaction Severity Status amoxicillin Active amLODIPine Active Immunizations Given and Recorded Vaccine Date Status Refusal Reason SARS-CoV-2 mRNA (hzxscpa-dlev-whlpn) vax 1 02/21/22 Given Hepatitis A Adult Vaccine 2 02/21/22 Given Hepatitis A Adult Vaccine 3 08/24/21 Given hepatitis B adult vaccine 4 09/25/21 Given hepatitis B adult vaccine 5 08/24/21 Given SARS-CoV-2 (COVID-19) Ad26 vaccine 11/22/20 Record ed SARS-CoV-2 (COVID-19) Ad26 vaccine 11/22/20 Record ed tetanus/diphtheria/pertussis, acel(Tdap) 07/21/18 Given 1Result Comment: [facility]-[id number] 2Result Comment: [facility]-[id number] 3Result Comment: [id number] 4Result Comment: [facility]-[id number] 5Result Comment: [facility]-[id number] Medications hydrochlorothiazide-valsartan 12.5 mg-160 mg oral tablet [...] Primary Care Member Role: PCP Address: Address: [address] [place] [address]- Care Team Related Persons Name: BERT SAINZ Address: [facility] [place] [address] Name: CASANDRA SHERWOOD Address: home [address] [place] [address] Name: JUNE SHERWOOD Name: JYOTI DE LA CRUZ
--- OUTSIDE RECORDS SUMMARY | 2024-02-27 09:45 | XMS_ITS | Continuity of Care Document ---
Author Organization [facility] lt Address [address] [place] [address]- Care Team Providers Care Ore Smelter Name Role Phone Pilar CORDOVA, Spencer Butler Primary Care Physician En[place] [facility] [place] Date(s): 08/24/21 - 08/31/21 [facility] Adult [address] [place] [address]- Attending Physician: Not on Staff, Attending MD Allergies, Adverse Reactions, Alerts No Known Medication Allergies Immunizations Given and Recorded Vaccine Date Status Refusal Reason hepatitis B adult vaccine 1 08/24/21 Given Hepatitis A Adult Vaccine 2 08/24/21 Given SARS-CoV-2 (COVID-19) Ad26 vaccine 11/22/20 Record ed SARS-CoV-2 (COVID-19) Ad26 vaccine 11/22/20 Record ed tetanus/diphtheria/pertussis, acel(Tdap) 07/21/18 Given 1Result Comment: [facility]-[id number] 2Result Comment: [id number] Medications Augmentin 875 mg-125 mg oral tablet 1 tablet, By Mouth, Every 12 hours, for 7 days, with food or milk, # 14 tablet, 0 Refills, Acute 09/04/21 12:56:00 EST, 08/28/21 12:56:00 EST, Tablet, [id number], Partial fill upon patient request if the prescription is for a schedule II opioi... Start Date: 08/28/21 Stop Date: 09/04/21 Status: Ordered Problem List Condition Effective Dates [...]
--- OUTSIDE RECORDS SUMMARY | 2024-02-27 09:45 | XMS_ITS | Continuity of Care Document ---
Author Organization [facility] Address [address] [address]- Care Team Providers Care Corporate Statistical Financial Analyst Name Role Phone Piotr CORDOVA, Juan Walker Primary Care Physician [phone] Encounter [facility] [place] Date(s): 11/28/22 - 12/28/22 [facility] [address] [address]- Attending Physician: Admtr, Deirdre Admitting Physician: [id number] Referring Physician: Admtr, Ar8 Allergies, Adverse Reactions, Alerts Substance Reaction Severity Status amLODIPine Active Immunizations Given and Recorded Vaccine Date Status Refusal Reason SARS-CoV-2 mRNA (bcnhbvf-xsxy-jcpoq) vax 1 02/21/22 Given Hepatitis A Adult Vaccine 2 02/21/22 Given Hepatitis A Adult Vaccine 3 08/24/21 Given hepatitis B adult vaccine 4 09/25/21 Given hepatitis B adult vaccine 5 08/24/21 Given SARS-CoV-2 (COVID-19) Ad26 vaccine 11/22/20 Record ed SARS-CoV-2 (COVID-19) Ad26 vaccine 11/22/20 Record ed tetanus/diphtheria/pertussis, acel(Tdap) 07/21/18 Given 1Result Comment: [facility]-[id number] 2Result Comment: [facility]-[id number] 3Result Comment: [id number] 4Result Comment: [facility]-[id number] 5Result Comment: [facility]-[id number] Medications hydrochlorothiazide-valsartan 12.5 mg-160 mg oral tablet 1 tablet, By Mouth, Daily, # 90 tablet, 3 Refills, Maintenance, 12/05/22 11:40:00 EDT, Tablet, [id number], Partial fill upon patient request if the [...] Personnel Name: Piotr CORDOVA, Juan Walker Position: [facility] Primary Care Physician Member Role: PCP Address: Address: [address] [place] [address]- Care Team Related Persons Name: BERT FREGOSO Name: CASANDRA SHERWOOD Address: home [address] [place] [address] Name: JUNE SHERWOOD Name: JYOTI DE LA CRUZ
--- OUTSIDE RECORDS SUMMARY | 2024-02-27 09:45 | XMS_ITS | Continuity of Care Document ---
Author Organization [facility] Frank[facility] lt Address [address] [place] [address]- Care Team Providers Care Certified Coding Specialist Name Role Phone Spencer Quezada MD Primary Care Physician [place] [facility] [place] 08/28/21 - 09/04/21 [facility] Adult [address] [place] [address]- Encounter Diagnosis Sinusitis(Discharge Diagnosis) - 08/28/21 Attending Physician: Spencer Quezada MD Allergies, Adverse Reactions, Alerts No Known Medication Allergies Immunizations Given and Recorded Vaccine Date Status Refusal Reason hepatitis B adult vaccine 1 08/24/21 Given Hepatitis A Adult Vaccine 2 08/24/21 Given SARS-CoV-2 (COVID-19) Ad26 vaccine 11/22/20 Record ed SARS-CoV-2 (COVID-19) Ad26 vaccine 11/22/20 Record ed tetanus/diphtheria/pertussis, acel(Tdap) 07/21/18 Given 1Result Comment: [id number] 2Result Comment: [id number] Problem List Condition Effective Dates Status Health Status Inform ant Benign hypertension(Confirmed) Active Cigarette smoker refer quitnow(Confirmed) 04/26/21 Active COVID-19(Confirmed) 08/28/21 Active Mold exposure(Confirmed) 04/26/21 Active Mitral prolapse.MR ECHO 2020(Confirmed) 04/26/21 Active Plantar fasciitis(Confirmed) Active Allergic rhinitis, seasonal(Confirmed) Active Fatty liver(Confirmed) 08/07/21 Active Diagnosis Diagnosis Type Effective Dates Health Status Clini ab Service Informant Sinusitis Discharge Diagnosis 08/28/21 Vital Signs Most recent to oldest [Reference Range]: 1 Height 183 cm (08/28/21 12:49 PM) Social History Social History Type Response Tobacco Use: 4 or less cigar ettes(less than 1/4 pack)/day in last 30 days, 1 pack a month since teens; . Sex
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
--- OUTSIDE RECORDS SUMMARY | 2024-02-27 09:45 | XMS_ITS | Continuity of Care Document ---
[facility] Address [address] [place] [address]- Care Team Providers Care Rocket Test Fire Worker Name Role Phone Piotr CORDOVA, Juan Walker Primary Care Physician [place] [facility] [place](s): 11/05/22 - 12/05/22 [facility] Adult [address] [place] [address]- Allergies, Adverse Reactions, Alerts Substance Reaction Severity Status amLODIPine Active Immunizations Given and Recorded Vaccine Date Status Refusal Reason SARS-CoV-2 mRNA (azublzm-bhpc-khvps) vax 1 02/21/22 Given Hepatitis A Adult Vaccine 2 02/21/22 Given Hepatitis A Adult Vaccine 3 08/24/21 Given hepatitis B adult vaccine 4 09/25/21 Given hepatitis B adult vaccine 5 08/24/21 Given SARS-CoV-2 (COVID-19) Ad26 vaccine 11/22/20 Record ed SARS-CoV-2 (COVID-19) Ad26 vaccine 11/22/20 Record ed tetanus/diphtheria/pertussis, acel(Tdap) 07/21/18 Given 1Result Comment: [facility]-[id number] 2Result Comment: [id number] 3Result Comment: [id number] 4Result Comment: [id number] 5Result Comment: [id number] Medications hydrochlorothiazide-valsartan 12.5 mg-160 mg oral tablet 1 tablet, By Mouth, Daily, # 90 tablet, 3 Refills, Maintenance, 12/05/22 11:40:00 EDT, Tablet, [id number], Partial fill upon patient request if the [...] Personnel Name: Piotr CORDOVA, Juan Walker Position: [facility] Primary Care Physician Member Role: PCP Address: Address: [address] [place] [address]- Care Team Related Persons Name: BERT FREGOSO Name: CASANDRA SHERWOOD Address: home [address] [place] [address] Name: JUNE SHERWOOD Name: JYOTI DE LA CRUZ
--- OUTSIDE RECORDS SUMMARY | 2024-02-27 09:45 | XMS_ITS | Continuity of Care Document ---
Author Organization [facility] Address [address] [place] [address]- Care Team Providers Care Iron Caster Name Role Phone Piotr CORDOVA, Juan Walker Primary Care Physician [phone] Encounter [facility] Date(s): 10/23/22 - 11/22/22 [facility] Mohan Williamson Adult [address] [place] [address]- Allergies, Adverse Reactions, Alerts Substance Reaction Severity Status amLODIPine Active Immunizations Given and Recorded Vaccine Date Status Refusal Reason SARS-CoV-2 mRNA (nqudvon-verd-jeqpg) vax 1 02/21/22 Given Hepatitis A Adult Vaccine 2 02/21/22 Given Hepatitis A Adult Vaccine 3 08/24/21 Given hepatitis B adult vaccine 4 09/25/21 Given hepatitis B adult vaccine 5 08/24/21 Given SARS-CoV-2 (COVID-19) Ad26 vaccine 11/22/20 Record ed SARS-CoV-2 (COVID-19) Ad26 vaccine 11/22/20 Record ed tetanus/diphtheria/pertussis, acel(Tdap) 07/21/18 Given 1Result Comment: [facility]-[id number] 2Result Comment: [facility]-[id number] 3Result Comment: [id number] 4Result Comment: [facility]-[id number] 5Result Comment: [id number] Medications hydrochlorothiazide-valsartan 12.5 mg-160 mg oral tablet 1 tablet, By Mouth, Daily, # 30 tablet, 5 Refills, Maintenance, 04/13/22 11:28:00 EDT, Tablet, [id number], Partial fill upon patient request if the [...] Personnel Name: Piotr CORDOVA, Juan Walker Position: [facility] Primary Care Physician Member Role: PCP Address: Address: [address] [place] [address]- Care Team Related Persons Name: BERT FREGOSO Name: CASANDRA SHERWOOD Address: home [address] [place] [address] Name: JUNE SHERWOOD Name: JYOTI DE LA CRUZ
--- OUTSIDE RECORDS SUMMARY | 2024-02-27 09:45 | XMS_ITS | Continuity of Care Document ---
Author Organization [facility] Address [address] [place], [place] [address], [address] [place] [address]- Care Team Providers Care Supervising Airplane Pilot Name Role Phone Piotr CORDOVA, Juan Wlaker Primary Care Physician Encounter [facility] [place] Date(s): 09/26/23 - 10/26/[address], [address] [place], [place] [address] Allergies, Adverse Reactions, Alerts Substance Reaction Severity Status amoxicillin Active amLODIPine Active Immunizations Given and Recorded Vaccine Date Status Refusal Reason SARS-CoV-2 mRNA (rqtaudo-tszt-csjxz) vax 1 02/21/22 Given Hepatitis A Adult Vaccine 2 02/21/22 Given Hepatitis A Adult Vaccine 3 08/24/21 Given hepatitis B adult vaccine 4 09/25/21 Given hepatitis B adult vaccine 5 08/24/21 Given SARS-CoV-2 (COVID-19) Ad26 vaccine 11/22/20 Record ed SARS-CoV-2 (COVID-19) Ad26 vaccine 11/22/20 Record ed tetanus/diphtheria/pertussis, acel(Tdap) 07/21/18 Given 1Result Comment: [facility]-[id number] 2Result Comment: [facility]-[id number] 3Result Comment: [id number] 4Result Comment: [id number] 5Result Comment: [id number] Medications hydrochlorothiazide-valsartan 12.5 mg-160 mg oral tablet [...] Personnel Name: Piotr CORDOVA, Juan Walker Position: [facility] Physician - Primary Care Member Role: PCP Address: Address: [address] [place] [address]- Care Team Related Persons Name: BERT SAINZ Address: [facility] [place] [address] Name: CASANDRA SHERWOOD Address: home [address] [place] [address] Name: JUNE SHERWOOD Name: JYOTI DE LA CRUZ
--- OUTSIDE RECORDS SUMMARY | 2024-02-27 09:45 | XMS_ITS | Continuity of Care Document ---
Author Organization [facility] [facility] Address [address] [place] [address]- Care Team Providers Care Refrigerator Assembler Name Role Phone Pilar CORDOVA, Spencer Butler Primary Care Physician [phone] Encounter [facility] Date(s): 06/19/21 - 07/19/21 [facility] Adult [address] [place] [address]- Allergies, Adverse Reactions, Alerts No Known Medication [...]
--- OUTSIDE RECORDS SUMMARY | 2024-02-27 09:45 | XMS_ITS | Continuity of Care Document ---
Author Organization [facility] [place] [facility] Address [address] [place] [address]- Care Team Providers Care Hair And Makeup Designer Name Role Phone Piotr CODROVA, Juan Walker Primary Care Physician En[place] [facility] [place](s): 04/30/23 - 05/30/23 [facility] Adult [address] [place] [address]- Allergies, Adverse Reactions, Alerts Substance Reaction Severity Status amLODIPine Active Immunizations Given and Recorded Vaccine Date Status Refusal Reason SARS-CoV-2 mRNA (hfdsrwk-mwfj-fceiu) vax 1 02/21/22 Given Hepatitis A Adult Vaccine 2 02/21/22 Given Hepatitis A Adult Vaccine 3 08/24/21 Given hepatitis B adult vaccine 4 09/25/21 Given hepatitis B adult vaccine 5 08/24/21 Given SARS-CoV-2 (COVID-19) Ad26 vaccine 11/22/20 Record ed SARS-CoV-2 (COVID-19) Ad26 vaccine 11/22/20 Record ed tetanus/diphtheria/pertussis, acel(Tdap) 07/21/18 Given 1Result Comment: [facility]-[id number] 2Result Comment: [id number] 3Result Comment: [id number] 4Result Comment: [id number] 5Result Comment: [id number] Medications clindamycin 1% topical lotion 1 application, Topically, 2 times a day, # 60 mL, 5 Refills, Maintenance, 03/20/23 6:15:00 EDT, Lotion, [id number], Partial fill upon patient request if the [...] Primary Care Member Role: PCP Address: Address: [address] [place] [address]- Care Team Related Persons Name: BERT FREGOSO Name: CASANDRA SHERWOOD Address: home [address] [place] [address] Name: JUNE SHERWOOD Name: JYOTI DE LA CRUZ
--- OUTSIDE RECORDS SUMMARY | 2024-02-27 09:45 | XMS_ITS | Continuity of Care Document ---
Author Organization [facility]an [facility] [place] [facility] Address [address] [place] [address]- Care Team Providers Care Smart Energy Specialist Name Role Phone Piotr CORDOVA, Juan Walker Primary Care Physician [phone] Encounter [facility] Date(s): 08/10/22 - 09/09/22 [facility] Adult [address] [place] [address]- Allergies, Adverse Reactions, Alerts Substance Reaction Severity Status amLODIPine Active Immunizations Given and Recorded Vaccine Date Status Refusal Reason SARS-CoV-2 mRNA (gtvuajf-moyx-otczk) vax 1 02/21/22 Given Hepatitis A Adult Vaccine 2 02/21/22 Given Hepatitis A Adult Vaccine 3 08/24/21 Given hepatitis B adult vaccine 4 09/25/21 Given hepatitis B adult vaccine 5 08/24/21 Given SARS-CoV-2 (COVID-19) Ad26 vaccine 11/22/20 Record ed SARS-CoV-2 (COVID-19) Ad26 vaccine 11/22/20 Record ed tetanus/diphtheria/pertussis, acel(Tdap) 07/21/18 Given 1Result Comment: [facility]-[id number] 2Result Comment: [facility]-[id number] 3Result Comment: [id number] 4Result Comment: [facility]-[id number] 5Result Comment: [id number] Medications hydrochlorothiazide-valsartan 12.5 mg-160 mg oral tablet 1 tablet, By Mouth, Daily, # 30 tablet, 5 Refills, Maintenance, 04/13/22 11:28:00 EDT, Tablet, [id number], Partial fill upon patient request if the [...] Care Physician Member Role: PCP Address: Address: [address] [place] [address]- Care Team Related Persons Name: BERT FREGOSO Name: CASANDRA SHERWOOD Address: home [address] [place] [address] Name: JUNE SHERWOOD Name: JYOTI DE LA CRUZ
--- OUTSIDE RECORDS SUMMARY | 2024-02-27 09:45 | XMS_ITS | Continuity of Care Document ---
Author Organization [facility] Clay Franklyn lt Address [address] [place] [address]- Care Team Providers Care Financial Institution Treasurer Name Role Phone Juan Saldaña MD Primary Care Physician [phone] [place] [facility] Date(s): 01/24/24 - 01/31/24 [facility] Mohan Williamson Adult [address] [place] [address]- Attending Physician: Juan Saldaña MD Allergies, Adverse Reactions, Alerts Substance Reaction Severity Status amoxicillin Active amLODIPine Active Immunizations Given and Recorded Vaccine Date Status Refusal Reason SARS-CoV-2 mRNA (cpmpvhq-yfgu-opssr) vax 1 02/21/22 Given Hepatitis A Adult Vaccine 2 02/21/22 Given Hepatitis A Adult Vaccine 3 08/24/21 Given hepatitis B adult vaccine 4 09/25/21 Given hepatitis B adult vaccine 5 08/24/21 Given SARS-CoV-2 (COVID-19) Ad26 vaccine 11/22/20 Record ed SARS-CoV-2 (COVID-19) Ad26 vaccine 11/22/20 Record ed tetanus/diphtheria/pertussis, acel(Tdap) 07/21/18 Given 1Result Comment: [facility]-[id number] 2Result Comment: [facility]-[id number] 3Result Comment: [id number] 4Result Comment: [id number] 5Result Comment: [id number] Medications hydrochlorothiazide-valsartan 12.5 mg-160 mg oral tablet [...] each, 0 Refills, Maintenance, 01/27/24 10:21:00 EDT, [facility]/pharmacy #[id number], Colonoscopy date 02/06/24 ; may [...] oldest [Reference Range]: 1 Height 182.5 cm (01/24/24 2:47 PM) Weight 120.7 kg (01/24/24 2:47 PM) Oxygen Saturation [94-100 %] 96 % (01/24/24 2:47 PM) Pulse Rate [55-90 bpm] 78 bpm (01/24/24 2:47 PM) Body Mass Index [18.5-24.99 kg/m2] 36.24 kg/m2 *>HHI* (01/24/24 2:47 PM) Blood Pressure [90-138/55-84 mm Hg] 131/ 85mm Hg (01/24/24 2:47 PM) Mode of Delivery (Oxygen) Room air (01/24/24 2:47 PM) Blood pressure sites Arm, right (01/24/24 2:47 PM) Weight Obtained Via Standing scale (01/24/24 2:47 PM) Social History Social History Type Response Tobacco Other: quit igh t smoker. Sex Note * Rochelle Acosta: PERFORM Event Display: Patient Education/Instruction Authored Date: [id number] Ambulatory Adult Visit Summary [facility] Clay Adlt [address] [place] [address] Name: MAGDALENO SHERWOOD : 1960?? Visit: 01/24/2024 14:39?? Ambulatory Visit Instructions ?? Your Care Team Primary Care Provider Piotr CORDOVA, Juan Walker? This Visit Provider Juan Saldaña MD Vitals Signs Pulse Rate: 78 bpm Height: 182.5 cm Systolic Blood Pressure: 131 mm Hg Weight: 120.7 kg Diastolic Blood Pressure:??85 mm Hg??High Body Mass Index:??36.24 kg/m2??Critical Oxygen Saturation: 96 % Body surface area: 2.47 What to do next Scheduled Follow-Up Appointments 2023 8:00 AM EDT ?? Where: [facility] Status: Pending Medications The list below reflects the information in our records and provided by you today along with any changes made during this visit. Please continue your medications until treatment is completed or stopped by your provider. If this is different from the information you have or there are other questions,please contact the prescribing provider. What How Much When Why Instructions Unchanged Hydrochlorothiazide-Valsartan (hydrochlorothiazide-valsartan 12.5 mg-160 mg oral tablet) 1 tab(s) Oral Daily Benign hypertension Duration: 90 Days Medications and Immunizations Administered Medications Given During Visit No medications given during this visit.?? Allergies (NKA means No Known Allergies) amLODIPine amoxicillin Common Emergency Awareness Tips IS IT A STROKE? Act FAST and Check for these signs: FACE Does the face look uneven? ARM Does one arm drift down? SPEECH Does their speech sound strange? TIME Call at any sign of stroke ?? Heart Attack Signs Chest discomfort: Most heart attacks involve discomfort in the center of the chest and lasts more than a few minutes, or goes away and comes back. It can feel like uncomfortable pressure, squeezing, fullness or pain. Discomfort in upper body: Symptoms can include pain or discomfort in one or both arms, back, neck, jaw or stomach. Shortness of breath: With or without discomfort. Other signs: Breaking out in a cold sweat, nausea, or lightheaded. Remember, MINUTES DO MATTER. If you experience any of these heart attack warning signs, call to get immediate medical attention! ?? Smoking can increase your chances of developing chronic health problems and can cause harmful effects to other family members in your house. If you smoke, you are strongly encouraged to quit. Please call [facility] Link at [phone] or [phone]-HealthcareSource ([phone]) or log in to [email or web address] for referrals to smoking cessation programs. ?? The National Suicide Prevention Hotline is available 11/03 if you or someone you know needs to find a reason to keep living. By calling 2-815-982-DroidUnit.net (0499) you'll be connected to a skilled, trained counselor at a crisis center in your area. [facility] Portal You can view and manage your care through the patient portal or by using a health care gaurav of your choosing. [employer] is a website that allows you to securely view your medical information including your hospital discharge summary, office visit summaries, medications and follow-up visits. You can also request appointments, renew medications, and request access to your medical information using a health care gaurav of your choosing, or just ask a question. You can enroll at [email or web address] or register during your next office visit. [facility], in keeping with [facility] guidance, no longer requires face masks for staff, patientsor visitors in most situations. Similiar to time spent indoors at other locations, there is the chance that you were exposed to repiratory viruses during your time with us (such as flu or COVID-19). If you develop symptoms concerning for a viral respiratory infection, please seek testing (and treatment if indicated) from your medical provider or home test kit. ?? Disclaimer: The information provided is of a general nature and is intended to be used in conjunction with the recommendations and advice of your health care practitioner. Every effort has been made to ensure that the information provided is accurate and complete at the time it is provided to you however, as your needs change, or, as new information becomes available, different or additional instructions may be required. ?? If you have questions, please consult with your primary care provider or pharmacist, as appropriate. This information is not intended to serve as substitution for assessment and evaluation by a qualified health care provider. If you do not have a primary care provider, you may find a [facility] provider by calling [facility] at [phone]. Patient Care team information Care Team Personnel Name: Juan Saldaña MD Position: [facility] Physician - Primary Care Member Role: PCP Address: Address: [address] [place] [address]- Care Team Related Persons Name: BERT SAINZ Address: [place] [address] Name: CASANDRA SHERWOOD Address: [address] [address] Name: JUNE SHERWOOD Name: JYOTI DE LA CRUZ
--- OUTSIDE RECORDS SUMMARY | 2024-02-27 09:45 | XMS_ITS | Continuity of Care Document ---
Author Organization [facility] Address [address] [address]- Care Team Providers Care Log Grader Name Role Phone Pilar CORDOVA, Spencer Butler Primary Care Physician Encounter [facility] Date(s): 06/14/21 - 07/14/21 [facility] [address] [address]- Attending Physician: Admtr, [id number] Admitting Physician: Admtr, [...]
--- OUTSIDE RECORDS SUMMARY | 2024-02-27 09:45 | XMS_ITS | Continuity of Care Document ---
Author Organization [facility] Mohan Williamson Franklyn lt Address [address] [place] [address]- Care Team Providers Care Rug Setter [place] Name Role Phone Piotr CORDOVA, Juan Walker Primary Care Physician Encounter [facility] Date(s): 01/22/23 - 02/21/23 [facility] Mohan Williamson Adult [address] [place] [address]- Allergies, Adverse Reactions, Alerts Substance Reaction Severity Status amLODIPine Active Immunizations Given and Recorded Vaccine Date Status Refusal Reason SARS-CoV-2 mRNA (ivotacb-znaz-ydguu) vax 1 02/21/22 Given Hepatitis A Adult Vaccine 2 02/21/22 Given Hepatitis A Adult Vaccine 3 08/24/21 Given hepatitis B adult vaccine 4 09/25/21 Given hepatitis B adult vaccine 5 08/24/21 Given SARS-CoV-2 (COVID-19) Ad26 vaccine 11/22/20 Record ed SARS-CoV-2 (COVID-19) Ad26 vaccine 11/22/20 Record ed tetanus/diphtheria/pertussis, acel(Tdap) 07/21/18 Given 1Result Comment: [facility]-[id number] 2Result Comment: [facility]-[id number] 3Result Comment: [id number] 4Result Comment: [id number] 5Result Comment: [id number] Medications hydrochlorothiazide-valsartan 12.5 mg-160 mg oral tablet 1 tablet, By Mouth, Daily, # 90 tablet, 3 Refills, Maintenance, 11/30/23 11:40:00 EDT, Tablet, [id number], Partial fill upon patient request if the prescription is for a schedule II opioid drug., 1 tablet By Mouth Daily,x90 days, 183, cm, 12/17... Start Date: 11/30/23 Stop Date: 11/24/24 Status: Ordered hydrochlorothiazide-valsartan 12.5 mg-160 mg oral tablet 1 tablet, By Mouth, Daily, for 90 days, # 90 tablet, 3 Refills, Hard Stop 11/30/23 11:40:00 EDT, 12/05/22 11:40:00 EDT, Tablet, [facility]/pharmacy #[id number], Partial fill upon patient request if [...] tablet, 0 Refills, Maintenance, 01/22/23 13:23:00 EDT, [facility]/pharmacy #[id number], Par... Start Date: 01/22/23 Status: Ordered [...] team information Care Team Personnel Name: Juan Sadlaña MD Position: S Physician - Primary Care Member Role: PCP Address: Address: [address] [place] [address]- Care Team Related Persons Name: BERT FREGOSO Name: CASANDRA SHERWOOD Address: home [address] [place] [address] Name: JUNE SHERWOOD Name: JYOTI DE LA CRUZ
--- OUTSIDE RECORDS SUMMARY | 2024-02-27 09:45 | XMS_ITS | Continuity of Care Document ---
Author Organization [facility] Clay Franklyn lt Address [address] [place] [address]- Care Team Providers Care Certified Medical Records Coder Name Role Phone Spencer Quezada MD Primary Care Physician [phone] Encounter [facility] Date(s): 09/25/21 - 10/02/21 [facility] Adult [address] [place] [address]- Encounter Diagnosis Acute otitis media, right(Discharge Diagnosis) - 09/29/21 Attending Physician: Dahlia Mata NP Referring Physician: Spencer Quezada MD Allergies, Adverse [...] ed tetanus/diphtheria/pertussis, acel(Tdap) 07/21/18 Given 1Result Comment: [id number] 2Result Comment: [id number] 3Result Comment: [id number] Medications Azithromycin 5 Day Dose Pack 250 [...] Dates Health Status Cl inical Service Informant Acute otitis media, right Discharge Diagnosis 09/29/21 Vital Signs Most recent to oldest [Reference Range]: 1 2 Height 183 cm (09/25/21 4:02 PM) 183 cm (09/25/21 3:49 PM) Weight 117.8 kg (09/25/21 3:49 PM) Oxygen Saturation [94-100 %] 97 % (09/25/21 3:49 PM) Pulse Rate [55-90 bpm] 102 bpm *H* (09/25/21 3:49 PM) Body Mass Index [18.5-24.99] 35.18 *>HHI* (09/25/21 3:49 PM) Blood Pressure [90-138/55-84 mm Hg] 144/ 82mm Hg *H* (09/25/21 4:02 PM) 143/88mm Hg *H* (09/25/21 3:49 PM) Respiratory Rate [16-30 br/min] 16 br/mi n (09/25/21 3:49 PM) Temperature [96.8-100.4 DegF] 98.0 DegF (09/25/21 3:49 PM) Mode of Delivery (Oxygen) Room air (09/25/21 3:49 PM) Blood pressure sites Arm, left (09/25/21 4:02 PM) Arm, left (09/25/21 3:49 PM) Temperature Route Oral (09/25/21 3:49 PM) Weight Obtained Via Standing scale (09/25/21 3:49 PM) Social History Social History Type Response Tobacco Use: 4 or less cigar ettes(less than 1/4 pack)/day in last 30 days, 1 pack a month since teens; . Sex
--- OUTSIDE RECORDS SUMMARY | 2024-02-27 09:45 | XMS_ITS | Continuity of Care Document ---
Author Organization [facility] Clay Franklyn lt Address [address] [place] [address]- Care Team Providers Care Jacquard Loom Weaver Name Role Phone Juan Saldaña MD Primary Care Physician Encounter [facility] Date(s): 03/14/23 - 05/12/23 [facility] Adult [address] [place] [address]- Attending Physician: Juan Saldaña MD Allergies, Adverse Reactions, Alerts Substance Reaction Severity Status amLODIPine Active Immunizations Given and Recorded Vaccine Date Status Refusal Reason SARS-CoV-2 mRNA (wtguguw-bqtm-lxupd) vax 1 02/21/22 Given Hepatitis A Adult Vaccine 2 02/21/22 Given Hepatitis A Adult Vaccine 3 08/24/21 Given hepatitis B adult vaccine 4 09/25/21 Given hepatitis B adult vaccine 5 08/24/21 Given SARS-CoV-2 (COVID-19) Ad26 vaccine 11/22/20 Record ed SARS-CoV-2 (COVID-19) Ad26 vaccine 11/22/20 Record ed tetanus/diphtheria/pertussis, acel(Tdap) 07/21/18 Given 1Result Comment: [facility]-[id number] 2Result Comment: [facility]-[id number] 3Result Comment: [id number] 4Result Comment: [id number] 5Result Comment: [id number] Medications clindamycin 1% topical lotion 1 application, Topically, 2 times a day, # 60 mL, 5 Refills, Maintenance, 03/20/23 6:15:00 EDT, Lotion, [id number], Partial fill upon patient request if the [...] team information Care Team Personnel Name: Juan Sladaña MD Position: S Physician - Primary Care Member Role: PCP Address: Address: [address] [place] [address]- Care Team Related Persons Name: BERT FREGOSO Name: CASANDRA SHERWOOD Address: home [address] [place] [address] Name: JUNE SHERWOOD Name: JYOTI DE LA CRUZ
--- OUTSIDE RECORDS SUMMARY | 2024-02-27 09:45 | XMS_ITS | Continuity of Care Document ---
Author Organization [facility] Address [address] [address]- Care Team Providers Care Outreach Nurse Name Role Phone Pilar CORDOVA, Spencer Butler Primary Care Physician [phone] Encounter [facility] Date(s): 05/03/21 - 06/02/21 [facility] [address] [address]- [place] Allergies, Adverse Reactions, Alerts No Known [...]
--- OUTSIDE RECORDS SUMMARY | 2024-02-27 09:45 | XMS_ITS | Continuity of Care Document ---
Author Organization [facility] Address [address] [place] [address]- Care Team Providers Care Ux Information Architect Name Role Phone Piotr CORDOVA, Juan Walker Primary Care Physician Encounter [facility] Date(s): 08/30/23 - 10/06/23 [facility] [address] [place], [place] [address] Attending Physician: Chin De León MD Referring Physician: Sarbjit Grover MD Allergies, Adverse Reactions, Alerts Substance Reaction Severity Status amoxicillin Active amLODIPine Active Immunizations Given and Recorded Vaccine Date Status Refusal Reason SARS-CoV-2 mRNA (jvctiyp-npaw-pzjct) vax 1 02/21/22 Given Hepatitis A Adult Vaccine 2 02/21/22 Given Hepatitis A Adult Vaccine 3 08/24/21 Given hepatitis B adult vaccine 4 09/25/21 Given hepatitis B adult vaccine 5 08/24/21 Given SARS-CoV-2 (COVID-19) Ad26 vaccine 11/22/20 Record ed SARS-CoV-2 (COVID-19) Ad26 vaccine 11/22/20 Record ed tetanus/diphtheria/pertussis, acel(Tdap) 07/21/18 Given 1Result Comment: [facility]-[id number] 2Result Comment: [facility]-[id number] 3Result Comment: [id number] 4Result Comment: [facility]-[id number] 5Result Comment: [id number] Medications hydrochlorothiazide-valsartan 12.5 mg-160 mg oral tablet [...] Primary Care Member Role: PCP Address: Address: [address] [place] [address]- Care Team Related Persons Name: BERT FREGOSO Name: CASANDRA SHERWOOD Address: home [address] [place] [address] Name: JUNE SHERWOOD Name: JYOTI DE LA CRUZ
--- OUTSIDE RECORDS SUMMARY | 2024-02-27 09:45 | XMS_ITS | Continuity of Care Document ---
Author Organization [facility] Clay Franklyn lt Address [address] [place] [address]- Care Team Providers Care Supervisor Records Change Name Role Phone Piotr CORDOVA, Juan Walker Primary Care Physician Encounter [facility] Date(s): 10/22/22 - 11/21/22 [facility] Mohan Williamson Adult [address] [place] [address]- Allergies, Adverse Reactions, Alerts Substance Reaction Severity Status amLODIPine Active Immunizations Given and Recorded Vaccine Date Status Refusal Reason SARS-CoV-2 mRNA (uimdjuu-kfkx-rnfhu) vax 1 02/21/22 Given Hepatitis A Adult Vaccine 2 02/21/22 Given Hepatitis A Adult Vaccine 3 08/24/21 Given hepatitis B adult vaccine 4 09/25/21 Given hepatitis B adult vaccine 5 08/24/21 Given SARS-CoV-2 (COVID-19) Ad26 vaccine 11/22/20 Record ed SARS-CoV-2 (COVID-19) Ad26 vaccine 11/22/20 Record ed tetanus/diphtheria/pertussis, acel(Tdap) 07/21/18 Given 1Result Comment: [facility]-[id number] 2Result Comment: [facility]-[id number] 3Result Comment: [id number] 4Result Comment: [id number] 5Result Comment: [id number] Medications hydrochlorothiazide-valsartan 12.5 mg-160 mg oral tablet 1 tablet, By Mouth, Daily, # 30 tablet, 5 Refills, Maintenance, 04/13/22 11:28:00 EDT, Tablet, [id number], Partial fill upon patient request if the [...] Personnel Name: Piotr CORDOVA, Juan Walker Position: [facility] Primary Care Physician Member Role: PCP Address: Address: [address] [place] [address]- Care Team Related Persons Name: BERT FREGOSO Name: CASANDRA SHERWOOD Address: home [address] [place] [address] Name: JUNE SHERWOOD Name: JYOTI DE LA CRUZ
--- OUTSIDE RECORDS SUMMARY | 2024-02-27 09:46 | XMS_ITS | Continuity of Care Document ---
Author Organization [facility] Address [address] [facility] [place] [address]- Care Team Providers Care Caretaker Grounds Name Role Phone Spencer Quezada MD Primary Care Physician Encounter 08/07/21 - 08/14/21 [facility] [address], [address] [place] [address]- Attending Physician: Spencer Quezada MD Admitting Physician: Spencer Quezada MD Referring Physician: Spencer Quezada MD Allergies, [...] rhinitis, seasonal(Confirmed) Active Fatty liver(Confirmed) 08/07/21 Active Procedures Procedure Date Related Diagnosis Body Site Status Ultrasound scan of elem ewchogenic 1 08/07/21 Completed 1Very echogenic and dense liver consistent with fatty infiltration and/or fibrosis. No masses or evidence of biliary stones or obstruction. Social History Social History Type Response Tobacco Use: 4 or less cigar ettes(less than 1/4 pack)/day in last 30 days, 1 pack a month since teens; . Sex
--- OUTSIDE RECORDS SUMMARY | 2024-02-27 09:46 | XMS_ITS | Continuity of Care Document ---
Author Organization [facility] Clay Franklyn lt Address [address] [place] [address]- Care Team Providers Care Top Hat Body Maker Name Role Phone Pilar CORDOVA, Spencer Butler Primary Care Physician [phone] Encounter [facility] Date(s): 09/13/21 - 10/13/21 [facility] Adult [address] [place] [address]- Allergies, Adverse Reactions, Alerts Substance Reaction Severity [...] 1Result Comment: [facility]-[id number] 2Result Comment: [facility]-[id number] 3Result Comment: [id number] Medications Azithromycin 5 Day Dose Pack 250 [...]
--- OUTSIDE RECORDS SUMMARY | 2024-02-27 09:46 | XMS_ITS | Continuity of Care Document ---
Author Organization [facility] Mohan Williamson Franklyn lt Address [address] [place] [address]- Care Team Providers Care Assistant General Manager Name Role Phone Pilar CORDOVA, Spencer Butler Primary Care Physician [phone] En[place] [facility] Date(s): 04/14/21 - 05/14/21 [facility] Mohan Williamson Adult [address] [place] [address]- Allergies, Adverse Reactions, Alerts No Known Medication [...]
--- OUTSIDE RECORDS SUMMARY | 2024-02-27 09:46 | XMS_ITS | Continuity of Care Document ---
Author Organization [facility] Clay Franklyn lt Address [address] [place] [address]- Care Team Providers Care B2B Appointment Setter Name Role Phone Juan Saldaña MD Primary Care Physician Encounter [facility] Date(s): 12/12/22 - 12/19/22 [facility] Adult [address] [place] [address]- Attending Physician: Juan Saldaña MD Allergies, Adverse Reactions, Alerts Substance Reaction Severity Status amLODIPine Active Immunizations Given and Recorded Vaccine Date Status Refusal Reason SARS-CoV-2 mRNA (komgspa-ycgz-spuqw) vax 1 02/21/22 Given Hepatitis A Adult Vaccine 2 02/21/22 Given Hepatitis A Adult Vaccine 3 08/24/21 Given hepatitis B adult vaccine 4 09/25/21 Given hepatitis B adult vaccine 5 08/24/21 Given SARS-CoV-2 (COVID-19) Ad26 vaccine 11/22/20 Record ed SARS-CoV-2 (COVID-19) Ad26 vaccine 11/22/20 Record ed tetanus/diphtheria/pertussis, acel(Tdap) 07/21/18 Given 1Result Comment: [facility]-[id number] 2Result Comment: [facility]-[id number] 3Result Comment: [id number] 4Result Comment: [id number] 5Result Comment: [id number] Medications hydrochlorothiazide-valsartan 12.5 mg-160 mg oral tablet 1 tablet, By Mouth, Daily, # 90 tablet, 3 Refills, Maintenance, 12/05/22 11:40:00 EDT, Tablet, [id number], Partial fill upon patient request if the [...] oldest [Reference Range]: 1 Height 183 cm (12/12/22 1:54 PM) Weight 118.2 kg (12/12/22 1:54 PM) Oxygen Saturation [94-100 %] 97 % (12/12/22 1:54 PM) Pulse Rate [55-90 bpm] 92 bpm *H* (12/12/22 1:54 PM) Body Mass Index [18.5-24.99 kg/m2] 35.3 kg/m2 *>HHI* (12/12/22 1:54 PM) Blood Pressure [90-138/55-84 mm Hg] 131/ 83mm Hg (12/12/22 1:54 PM) Mode of Delivery (Oxygen) Room air (12/12/22 1:54 PM) Blood pressure sites Arm, left (12/12/22 1:54 PM) Weight Obtained Via Standing scale (12/12/22 1:54 PM) Social History Social History Type Response Tobacco Other: quit igh t smoker. Sex Patient Care team information Care Team Personnel Name: Juan Saldaña MD Position: S Primary Care Physician Member Role: PCP Address: Address: [address] [place] [address]- Care Team Related Persons Name: BERT FREGOSO Name: CASANDRA SHERWOOD Address: home [address] [place] [address] Name: JUNE SHERWOOD Name: JYOTI DE LA CRUZ
--- OUTSIDE RECORDS SUMMARY | 2024-02-27 09:46 | XMS_ITS | Continuity of Care Document ---
Author Organization [facility] Address [address] [place] [address]- Care Team Providers Care Farm Butcher Name Role Phone Piotr CORDOVA, Juan Walker [id number]/18/23 - 04/17/23 [facility] [address] [place] [id number] Allergies, Adverse Reactions, Alerts Substance Reaction Severity Status amLODIPine Active Immunizations Given and Recorded Vaccine Date Status Refusal Reason SARS-CoV-2 mRNA (dbfkseo-zofc-vmioo) vax 1 02/21/22 Given Hepatitis A Adult Vaccine 2 02/21/22 Given Hepatitis A Adult Vaccine 3 08/24/21 Given hepatitis B adult vaccine 4 09/25/21 Given hepatitis B adult vaccine 5 08/24/21 Given SARS-CoV-2 (COVID-19) Ad26 vaccine 11/22/20 Record ed SARS-CoV-2 (COVID-19) Ad26 vaccine 11/22/20 Record ed tetanus/diphtheria/pertussis, acel(Tdap) 07/21/18 Given 1Result Comment: [facility]-[id number] 2Result Comment: [facility]-[id number] 3Result Comment: [id number] 4Result Comment: [id number] 5Result Comment: [id number] Medications clindamycin 1% topical lotion 1 application, Topically, 2 times a day, # 60 mL, 5 Refills, Maintenance, 03/20/23 6:15:00 EDT, Lotion, [id number], Partial fill upon patient request if the [...] Primary Care Member Role: PCP Address: Address: [address] [place] [address]- Care Team Related Persons Name: BERT FREGOSO Name: CASANDRA SHERWOOD Address: home [address] [place] [address] Name: JUNE SHERWOOD Name: JYOTI DE LA CRUZ
--- OUTSIDE RECORDS SUMMARY | 2024-02-27 09:46 | XMS_ITS | Continuity of Care Document ---
Author Organization [facility] Mohan Williamson [place] lt Address [address] [place] [address]- Care Team Providers Care Tobacco Roller Name Role Phone Piotr CORDOVA, Juan Walker Primary Care Physician [phone] [facility] Date(s): 12/13/22 - 01/12/23 [facility] Mohan Williamson Adult [address] [place] [address]- Allergies, Adverse Reactions, Alerts Substance Reaction Severity Status amLODIPine Active Immunizations Given and Recorded Vaccine Date Status Refusal Reason SARS-CoV-2 mRNA (qtpuqvp-cruk-vredd) vax 1 02/21/22 Given Hepatitis A Adult Vaccine 2 02/21/22 Given Hepatitis A Adult Vaccine 3 08/24/21 Given hepatitis B adult vaccine 4 09/25/21 Given hepatitis B adult vaccine 5 08/24/21 Given SARS-CoV-2 (COVID-19) Ad26 vaccine 11/22/20 Record ed SARS-CoV-2 (COVID-19) Ad26 vaccine 11/22/20 Record ed tetanus/diphtheria/pertussis, acel(Tdap) 07/21/18 Given 1Result Comment: [facility]-[id number] 2Result Comment: [facility]-[id number] 3Result Comment: [id number] 4Result Comment: [id number] 5Result Comment: [id number] Medications hydrochlorothiazide-valsartan 12.5 mg-160 mg oral tablet 1 tablet, By Mouth, Daily, # 90 tablet, 3 Refills, Maintenance, 11/30/23 11:40:00 EDT, Tablet, [id number], Partial fill upon patient request if the prescription is for a schedule II opioid drug., 1 tablet By Mouth Daily,x90 days, 183, cm, 12/17... Start Date: 11/30/23 Stop Date: 11/24/24 Status: Ordered hydrochlorothiazide-valsartan 12.5 mg-160 mg oral tablet 1 tablet, By Mouth, Daily, for 90 days, # 90 tablet, 3 Refills, Hard Stop 11/30/23 11:40:00 EDT, 12/05/22 11:40:00 EDT, Tablet, [facility]/pharm[facility] #[id number], Partial fill upon patient [...] Team Personnel Name: Juan Saldaña MD Position: [facility] Physician - Primary Care Member Role: PCP Address: Address: [address] [place] [address]- Care Team Related Persons Name: BERT FREGOSO Name: CASANDRA SHERWOOD Address: home [address] [place] [address] Name: JUNE SHERWOOD Name: JYOTI DE LA CRUZ
--- OUTSIDE RECORDS SUMMARY | 2024-02-27 09:46 | XMS_ITS | Continuity of Care Document ---
Author Organization [facility] Address [address] [address]- Care Team Providers Care Lump Roller Name Role Phone Pilar CORDOVA, Spencer Butler Primary Care Physician [facility] Date(s): 05/29/21 - 06/28/21 [facility] [address] [address]- [place] Allergies, Adverse Reactions, Alerts No Known [...]
--- OUTSIDE RECORDS SUMMARY | 2024-02-27 09:46 | XMS_ITS | Continuity of Care Document ---
Author Organization [facility] Frank[place] lt Address [address] [place] [address]- Care Team Providers Care Terra Cotta Setter Name Role Phone Juan Saldaña MD Primary Care Physician [phone] En[place] [facility] Date(s): 09/25/22 - 10/02/22 [facility] Adult [address] [place] [address]- Attending Physician: Juan Saldaña MD Allergies, Adverse Reactions, Alerts Substance Reaction Severity Status amLODIPine Active Immunizations Given and Recorded Vaccine Date Status Refusal Reason SARS-CoV-2 mRNA (ghcduhl-vwyq-xnzib) vax 1 02/21/22 Given Hepatitis A Adult Vaccine 2 02/21/22 Given Hepatitis A Adult Vaccine 3 08/24/21 Given hepatitis B adult vaccine 4 09/25/21 Given hepatitis B adult vaccine 5 08/24/21 Given SARS-CoV-2 (COVID-19) Ad26 vaccine 11/22/20 Record ed SARS-CoV-2 (COVID-19) Ad26 vaccine 11/22/20 Record ed tetanus/diphtheria/pertussis, acel(Tdap) 07/21/18 Given 1Result Comment: [facility]-[id number] 2Result Comment: [facility]-[id number] 3Result Comment: [id number] 4Result Comment: [id number] 5Result Comment: [id number] Medications erythromycin 0.5% ophthalmic ointment See Instructions, Apply to affected lids daily at bedtime, # 3.5 Gm, 2 Refills, Acute 10/23/22 16:27:00 EST, 09/25/22 16:24:00 EST, [id number], Partial fill upon patient request if the prescription is for a schedule II opioid drug., Apply to a... Start Date: 09/25/22 Stop Date: 10/23/22 Status: Ordered hydrochlorothiazide-valsartan 12.5 mg-160 mg oral tablet 1 tablet, By Mouth, Daily, # 30 tablet, 5 Refills, Maintenance, 04/13/22 11:28:00 EDT, Tablet, [facility]/pharmacy #[id number], Partial fill upon patient request if [...] oldest [Reference Range]: 1 Height 183 cm (09/25/22 3:54 PM) Weight 118.0 kg (09/25/22 3:54 PM) Oxygen Saturation [94-100 %] 95 % (09/25/22 3:54 PM) Pulse Rate [55-90 bpm] 84 bpm (09/25/22 3:54 PM) Body Mass Index [18.5-24.99 kg/m2] 35.24 kg/m2 *>HHI* (09/25/22 3:54 PM) Blood Pressure [90-138/55-84 mm Hg] 130/ 84mm Hg (09/25/22 3:54 PM) Mode of Delivery (Oxygen) Room air (09/25/22 3:54 PM) Blood pressure sites Arm, left (09/25/22 3:54 PM) Weight Obtained Via Standing scale (09/25/22 3:54 PM) Social History Social History Type Response Tobacco Other: quit igh t smoker. Sex Note * Rochelle Acosta: PERFORM, SIGN, VERIFY Event Display: Patient Education/Instruction Authored Date: [id number] [facility] *BMP So Clay Gonzáles Clinical Summary Name MAGDALENO SHERWOOD Age 61 Years 1960 PCP Piotr CORDOVA, Juan Walker PCP Visit Date 09/25/2022 15:49:00 Additional Instructions: Scheduled Appointments?? Future Appointments ?No Future Appointments Scheduled Follow-Up Instructions ?? Diagnosis Presence of unspecified artificial hip joint Medications: Please continue your medications until treatment is completed or stopped by your provider. Discuss any questions related to medications with your provider. New Medications [id number], [id number] [place] [id number], [phone] Erythromycin Ophthalmic (erythromycin 0.5% ophthalmic ointment) Apply to affected lids daily at bedtime. Refills: 2. Next Dose: Medications to Continue with No Changes These medications were not printed or sent to your pharmacy Hydrochlorothiazide-Valsartan (hydrochlorothiazide-valsartan 12.5 mg-160 mg oral tablet) 1 tab(s) Oral Daily. Refills: 5. Next Dose: No Longer Take the Following Medications Ergocalciferol (Vitamin D2 2000 intl units oral capsule) 1 capsule Oral Daily. Allergy Info:?? amLODIPine Medications Given This Visit Future Orders ?No future orders Vital Signs Height 183 cm Weight 118.0 kg BMI 35.24 kg/m2 Blood Pressure 130 mm Hg/84 mm Hg Temperature Pulse Rate 84 bpm Respiratory Rate 02 Sat Mode of Delivery 95 %/Room air You can now view a summary of your hospital visit from the comfort of your home through a free online portal called Grata. Grata is a website that allows you to securely view your medical information including discharge summary, medications and follow-up visits. ??You can alsosend a secure electronic message to your doctor???s office to request appointments, renew medications or just ask a question. You can enroll at [email or web address] or register during your next office visit. [...] primary care provider, you may find a [facility] provider by calling [facility] Link at [phone]. For information about the plan of care [...] Care Physician Member Role: PCP Address: Address: [address] [place] [address]- Care Team Related Persons Name: ILDEFONSO BERT Name: CASANDRA SHERWOOD Address: home [address] [place] [address] Name: JUNE SHERWOOD Name: JYOTI DE LA CRUZ
--- OUTSIDE RECORDS SUMMARY | 2024-02-27 09:46 | XMS_ITS | Continuity of Care Document ---
Author Organization [facility] Clay Frank[place] lt Address [address] [place] [address]- Care Team Providers Care Digital Marketing Analyst Name Role Phone Pilar CORDOVA, Spencer Butler Primary Care Physician [facility] Date(s): 08/17/21 - 09/20/21 [facility] [place] Adult [address] [place] [address]- Attending Physician: Not on Staff, Attending MD Allergies, Adverse Reactions, Alerts Substance Reaction Severity Status amLODIPine Active Immunizations Given and Recorded Vaccine Date Status Refusal Reason hepatitis B adult vaccine 1 08/24/21 Given Hepatitis A Adult Vaccine 2 08/24/21 Given SARS-CoV-2 (COVID-19) Ad26 vaccine 11/22/20 Record ed SARS-CoV-2 (COVID-19) Ad26 vaccine 11/22/20 Record ed tetanus/diphtheria/pertussis, acel(Tdap) 07/21/18 Given 1Result Comment: [id number] 2Result Comment: [id number] Problem List Condition Effective Dates Status Health [...]
--- OUTSIDE RECORDS SUMMARY | 2024-02-27 09:46 | XMS_ITS | Continuity of Care Document ---
Author Organization [facility] Clay Frank[place] lt Address [address] [place] [address]- Care Team Providers Care Chain Tender Name Role Phone Pilar CORDOVA, Spencer Butler Primary Care Physician [phone] [facility]counter [facility] Date(s): 08/16/21 - 09/15/21 [facility] Williamson Adult [address] [place] [address]- Allergies, Adverse Reactions, Alerts No Known Medication Allergies Immunizations Given and Recorded Vaccine Date Status Refusal Reason hepatitis B adult vaccine 1 08/24/21 Given Hepatitis A Adult Vaccine 2 08/24/21 Given SARS-CoV-2 (COVID-19) Ad26 vaccine 11/22/20 Record ed SARS-CoV-2 (COVID-19) Ad26 vaccine 11/22/20 Record ed tetanus/diphtheria/pertussis, acel(Tdap) 07/21/18 Given 1Result Comment: [facility]-[id number] 2Result Comment: [id number] Problem List Condition Effective Dates Status Health [...]
--- OUTSIDE RECORDS SUMMARY | 2024-02-27 09:46 | XMS_ITS | Continuity of Care Document ---
Author Organization [facility] Clay Frank[place] lt Address [address] [place] [address]- Care Team Providers Care De Icer Element Winder Name Role Phone Pilar CORDOVA, Spencer Butler Primary Care Physician Encounter [facility] Date(s): 04/13/22 - 05/13/22 [facility] [place] Adult [address] [place] [address]- Attending Physician: AdmDeirdre mg Admitting Physician: AdmtrDeirdre Referring Physician: AdmtrDeirdre Allergies, Adverse Reactions, Alerts Substance Reaction Severity Status amLODIPine Active Immunizations Given and Recorded Vaccine Date Status Refusal Reason SARS-CoV-2 mRNA (jyeiect-uuni-idavf) vax 1 02/21/22 Given Hepatitis A Adult Vaccine 2 02/21/22 Given Hepatitis A Adult Vaccine 3 08/24/21 Given hepatitis B adult vaccine 4 09/25/21 Given hepatitis B adult vaccine 5 08/24/21 Given SARS-CoV-2 (COVID-19) Ad26 vaccine 11/22/20 Record ed SARS-CoV-2 (COVID-19) Ad26 vaccine 11/22/20 Record ed tetanus/diphtheria/pertussis, acel(Tdap) 07/21/18 Given 1Result Comment: [facility]-[id number] 2Result Comment: [facility]-[id number] 3Result Comment: [id number] 4Result Comment: [id number] 5Result Comment: [id number] Medications hydrochlorothiazide-valsartan 12.5 mg-160 mg oral tablet [...] Benign hypertension(Confirmed) Active Chronic back pain L5-S21 lorrie rowing MRI(Confirmed) 1 12/18/21 Active Cough ? stephanie(Confirmed) [...] Procedure Date Related Diagnosis Body Site Status History of total hip arthroplasty left 04/26/22 Completed Ankle brachial pressure index normal 1 01/10/22 Completed 1abi rt1.0 lft 0.96 tbi 0.71/.70 Social History Social History Type Response Tobacco Other: quit igh t smoker. Sex Care Team Personnel Name: Pilar CORDOVA, Spencer Butler Address: [address] [place] [address] [place] [address]-
--- OUTSIDE RECORDS SUMMARY | 2024-02-27 09:46 | XMS_ITS | Continuity of Care Document ---
Author Organization [facility] Clay Franklyn lt Address [address] [place] [address]- Care Team Providers Care Meat Carrier Name Role Phone Pilar CORDOVA, Spencer Butler Primary Care Physician Encounter [facility] Date(s): 03/02/22 - 04/01/22 [facility] Adult [address] [place] [address]- Allergies, Adverse Reactions, Alerts Substance Reaction Severity Status amLODIPine Active Immunizations Given and Recorded Vaccine Date Status Refusal Reason SARS-CoV-2 mRNA (rzqbdrg-gqqc-gtsvi) vax 1 02/21/22 Given Hepatitis A Adult Vaccine 2 02/21/22 Given Hepatitis A Adult Vaccine 3 08/24/21 Given hepatitis B adult vaccine 4 09/25/21 Given hepatitis B adult vaccine 5 08/24/21 Given SARS-CoV-2 (COVID-19) Ad26 vaccine 11/22/20 Record ed SARS-CoV-2 (COVID-19) Ad26 vaccine 11/22/20 Record ed tetanus/diphtheria/pertussis, acel(Tdap) 07/21/18 Given 1Result Comment: [id number] 2Result Comment: [id number] 3Result Comment: [id number] 4Result Comment: [id number] 5Result Comment: [id number] Medications Vitamin D2 2000 intl units oral [...]
--- OUTSIDE RECORDS SUMMARY | 2024-02-27 09:46 | XMS_ITS | Continuity of Care Document ---
Author Organization [facility] Clay Franklyn lt Address [address] [place] [address]- Care Team Providers Care Taxi Cab Driver Name Role Phone Pilar CORDOVA, Spencer Butler Primary Care Physician [facility] Date(s): 04/18/22 - 05/18/22 [facility] [place] Adult [address] [place] [address]- Allergies, Adverse Reactions, Alerts Substance Reaction Severity Status amLODIPine Active Immunizations Given and Recorded Vaccine Date Status Refusal Reason SARS-CoV-2 mRNA (slgeiyd-lycn-iyzhv) vax 1 02/21/22 Given Hepatitis A Adult Vaccine 2 02/21/22 Given Hepatitis A Adult Vaccine 3 08/24/21 Given hepatitis B adult vaccine 4 09/25/21 Given hepatitis B adult vaccine 5 08/24/21 Given SARS-CoV-2 (COVID-19) Ad26 vaccine 11/22/20 Record ed SARS-CoV-2 (COVID-19) Ad26 vaccine 11/22/20 Record ed tetanus/diphtheria/pertussis, acel(Tdap) 07/21/18 Given 1Result Comment: [facility]-[id number] 2Result Comment: [facility]-[id number] 3Result Comment: [id number] 4Result Comment: [id number] 5Result Comment: [id number] Medications hydrochlorothiazide-valsartan 12.5 mg-160 mg oral tablet 1 tablet, By Mouth, Daily, # 30 tablet, 5 Refills, Maintenance, 04/13/22 11:28:00 EDT, Tablet, [id number], Partial fill upon patient request if the [...] Name: Pilar CORDOVA, Spencer Butler Address: Address: [address] [place] [address]
--- OUTSIDE RECORDS SUMMARY | 2024-02-27 09:46 | XMS_ITS | Continuity of Care Document ---
Author Organization [facility] ter Address [address] [place] [address]- Care Team Providers Care Director Educational Radio Name Role Phone Juan Saldaña MD Primary Care Physician [phone] Encounter [facility] Date(s): 10/12/23 - 10/13/[address] [address]- Discharge Disposition: A-D/C Home Attending Physician: Birdie Draper MD Admitting Physician: Birdie Draper MD Referring Physician: Not on Staff, Referring MD Allergies, Adverse Reactions, Alerts Substance Reaction Severity Status amoxicillin Active amLODIPine Active Immunizations Given and Recorded Vaccine Date Status Refusal Reason SARS-CoV-2 mRNA (akyxvxj-cnex-vnnus) vax 1 02/21/22 Given Hepatitis A Adult Vaccine 2 02/21/22 Given Hepatitis A Adult Vaccine 3 08/24/21 Given hepatitis B adult vaccine 4 09/25/21 Given hepatitis B adult vaccine 5 08/24/21 Given SARS-CoV-2 (COVID-19) Ad26 vaccine 11/22/20 Record ed SARS-CoV-2 (COVID-19) Ad26 vaccine 11/22/20 Record ed tetanus/diphtheria/pertussis, acel(Tdap) 07/21/18 Given 1Result Comment: [facility]-[id number] 2Result Comment: [facility]-[id number] 3Result Comment: [id number] 4Result Comment: [id number] 5Result Comment: [facility]-[id number] Medications doxycycline hyclate 100 mg oral capsule 1 capsule = 100 mg, By Mouth, 2 times a day, # 14 capsule, 0 Refills, Acute 10/17/23 15:11:00 EST, 10/10/23 15:11:00 EST, [facility]/pharmacy #[id number], Partial fill upon patient request if the prescription is for a schedule II opioid drug., 182.5, cm, 10/10/23... Start Date: 10/10/23 Stop Date: 10/17/23 Status: Ordered hydrochlorothiazide-valsartan 12.5 mg-160 mg oral tablet 1 tablet, By Mouth, Daily, for 90 days, # 90 tablet, 1 Refills, Hard Stop 04/05/24 12:27:00 EDT, 10/08/23 12:27:00 EST, Tablet, [facility]/pharmacy #[id number], Partial fill [...] most pronounced on the right at L5-S1. Results Radiology Reports * Exam Date Time Procedure Performing Provider Status 10/13/23 12:[address] Head/Brain W/ Contrast Jarrod Freedman n; Auth (Verified) Notes: (CT Head/Brain W/ Contrast) Reason For Exam: abscess over occiput;Other: RESULT: CT Head/Brain W/ Contrast CT Head/Brain W/ Contrast Hx of Present Illness: pt with large lump to back of head, sts he was seen at [place], attempted todrain mass, nothing out, had US with neg results, has some pain, no drainage noted; Reason: Other:;abscess over occiput; Clinical Question(s): Infection Abscess; Order Comment: TECHNIQUE: Head CT was performed with intravenous contrast, using axial technique and reconstructedin axial and coronal plane. 100 cc of Omnipaque 300 was administered intravenously. Iterative reconstruction techniques are used to optimize dose and image quality. CTDIvol Head: 45.50 mGy, DLP Head: 772 mGy*cm. COMPARISON: None. FINDINGS: Chronic Disease Manager View Findings, Lines and Tubes: None. BRAIN and EXTRA-AXIAL SPACES: There are no areas of abnormal enhancement. No parenchymal hemorrhage, midline shift or mass effect. Castillo-white matter differentiation is well preserved. No acute infarct. Patent dural venous sinuses. Grossly normal arterial opacification on this study performed without angiographic technique. Ventricles, sulci and basilar cisterns are normal for age. No white matter abnormalities. No subdural or epidural collections. CALVARIUM, SKULL BASE AND SOFT TISSUES: No fractures or suspicious bony lesions. The paranasal sinuses and mastoid air cells are clear. Visualized orbits and globes are intact. Diffuse subcutaneous fat stranding involving the lower occipital region. IMPRESSION: No acute intracranial pathology. Diffuse fat stranding involving the lower occipital region but no drainable collection in the visualized area. I have personally reviewed the images and I agree with this report. WSN: [id number] Ordering Physician: Jovita Sheffield Dictated By: Juan Carlos[Radiology] Mora CORDOVA Dictated Date/Time: 10/13/23 7:34 am Reviewed By: Rudy Bennett MD Signed By: Rudy Bennett MD Signed Date/Time: 10/13/23 7:39 am Transcribed By: MONICA Transcribed Date/Time: 10/13/23 1:04 am Vital Signs Most recent to oldest [Reference Range]: 1 2 3 Weight 118.898 kg (10/13/23 4:31 AM) 118.898 kg (10/12/23 6:07 PM) Oxygen Saturation [94-100 %] 100 % (10/13/23 4:31 AM) 98 % (10/13/23 3:26 AM) 97 % (10/12/23 8:50 PM) Pulse Rate [55-90 bpm] 75 bpm (10/13/23 4:31 AM) 76 bpm (10/13/23 3:26 AM) 90 bpm (10/12/23 8:50 PM) Blood Pressure [90-138/55-84 mm Hg] 122/80mm Hg (10/13/23 4:31 AM) 135/84mm Hg (10/13/23 3:26 AM) 145/83mm Hg *H* (10/12/23 8:50 PM) Respiratory Rate [16-30 br/min] 17 br/min (10/13/23 4:31 AM) 18 br/min (10/13/23 3:26 AM) 19 br/min (10/12/23 6:07 PM) Temperature [96.8-100.4 DegF] 97.7 DegF (10/13/23 4:31 AM) 97.7 DegF (10/13/23 3:26 AM) 98.3 DegF (10/12/23 8:50 PM) Mode of Delivery (Oxygen) Room air (10/13/23 4:31 AM) Room air (10/13/23 3:26 AM) Room air (10/12/23 9:42 PM) Blood pressure sites Arm, left (10/13/23 4:31 AM) Arm, right (10/13/23 3:26 AM) Arm, left (10/12/23 9:42 PM) Temperature Route Oral (10/13/23 4:31 AM) Oral (10/13/23 3:26 AM) Oral (10/12/23 9:42 PM) Weight Obtained Via Standing scale (10/12/23 9:42 PM) Dry Weight Obtained Via Standing scale (10/12/23 9:42 PM) Social History Social History Type Response Tobacco Other: quit igh t smoker. Sex Patient Care team information Care Team Personnel Name: Juan Saldaña MD Position: [facility] Physician - Primary Care Member Role: PCP Address: Address: [address] [place] [address]- Care Team Related Persons Name: BERT FREGOSO Name: CASANDRA SHERWOOD Address: home [address] [place] [address] Name: JUNE SHERWOOD Name: JYOTI DE LA CRUZ
--- OUTSIDE RECORDS SUMMARY | 2024-02-27 09:46 | XMS_ITS | Continuity of Care Document ---
Author Organization [facility] Clay Franklyn lt Address [address] [place] [address]- Care Team Providers Care Chief Hydroelectric Station Operator Name Role Phone Juan Saldaña MD Primary Care Physician [phone] [place] [facility] [place]23 [place] 04/23/23 [facility] [place] Adult [address] [place] [address]- Attending Physician: Juan Saldaña MD Allergies, Adverse Reactions, Alerts Substance Reaction Severity Status amLODIPine Active Immunizations Given and Recorded Vaccine Date Status Refusal Reason SARS-CoV-2 mRNA (tqlqhlv-hypq-fnkjh) vax 1 02/21/22 Given Hepatitis A Adult Vaccine 2 02/21/22 Given Hepatitis A Adult Vaccine 3 08/24/21 Given hepatitis B adult vaccine 4 09/25/21 Given hepatitis B adult vaccine 5 08/24/21 Given SARS-CoV-2 (COVID-19) Ad26 vaccine 11/22/20 Record ed SARS-CoV-2 (COVID-19) Ad26 vaccine 11/22/20 Record ed tetanus/diphtheria/pertussis, acel(Tdap) 07/21/18 Given 1Result Comment: [facility]-[id number] 2Result Comment: [facility]-[id number] 3Result Comment: [id number] 4Result Comment: [id number] 5Result Comment: [id number] Medications clindamycin 1% topical lotion 1 application, Topically, 2 times a day, # 60 mL, 5 Refills, Maintenance, 03/20/23 6:15:00 EDT, Lotion, [id number], Partial fill upon patient request if the [...] oldest [Reference Range]: 1 Height 183 cm (04/16/23 3:29 PM) Weight 116.7 kg (04/16/23 3:29 PM) Oxygen Saturation [94-100 %] 96 % (04/16/23 3:29 PM) Pulse Rate [55-90 bpm] 96 bpm *H* (04/16/23 3:29 PM) Body Mass Index [18.5-24.99 kg/m2] 34.85 kg/m2 *>HHI* (04/16/23 3:29 PM) Blood Pressure [90-138/55-84 mm Hg] 110/ 70mm Hg (04/16/23 3:29 PM) Mode of Delivery (Oxygen) Room air (04/16/23 3:29 PM) Blood pressure sites Arm, left (04/16/23 3:29 PM) Weight Obtained Via Standing scale (04/16/23 3:29 PM) Social History Social History Type Response Tobacco Other: quit igh t smoker. Sex Patient Care team information Care Team Personnel Name: Piotr CORDOVA, Juan Walker Position: S Physician - Primary Care Member Role: PCP Address: Address: [address] [place] [address]- Care Team Related Persons Name: BERT FREGOSO Name: CASANDRA SHERWOOD Address: home [address] [place] [address] Name: JUNE SHERWOOD Name: JYOTI DE LA CRUZ
--- OUTSIDE RECORDS SUMMARY | 2024-02-27 09:46 | XMS_ITS | Continuity of Care Document ---
Author Organization [facility] Clay Franklyn lt Address [address] [place] [address]- Care Team Providers Care Career Development Associate Name Role Phone Pilar CORDOVA, Spencer Butler Primary Care Physician [place] [facility] [place]s): 01/31/22 - 03/02/22 [facility] Adult [address] [place] [address]- Allergies, Adverse Reactions, Alerts Substance Reaction Severity Status amLODIPine Active Immunizations Given and Recorded Vaccine Date Status Refusal Reason SARS-CoV-2 mRNA (pkraexj-tjgn-cucoo) vax 1 02/21/22 Given Hepatitis A Adult Vaccine 2 02/21/22 Given Hepatitis A Adult Vaccine 3 08/24/21 Given hepatitis B adult vaccine 4 09/25/21 Given hepatitis B adult vaccine 5 08/24/21 Given SARS-CoV-2 (COVID-19) Ad26 vaccine 11/22/20 Record ed SARS-CoV-2 (COVID-19) Ad26 vaccine 11/22/20 Record ed tetanus/diphtheria/pertussis, acel(Tdap) 07/21/18 Given 1Result Comment: [facility]-[id number] 2Result Comment: [id number] 3Result Comment: [id number] 4Result Comment: [id number] 5Result Comment: [id number] Medications predniSONE 20 mg oral tablet 1 tablet = 20 mg, By Mouth, 2 times a day, with food or milk, # 20 tablet, 0 Refills, Maintenance, 01/31/22 10:01:00 EDT, Tablet, [id number], Partial fill upon patient request if the prescription is for a schedule II opioid drug., 183, cm, .. Start Date: 01/31/22 Status: Ordered Vitamin D2 [...]
--- OUTSIDE RECORDS SUMMARY | 2024-02-27 09:46 | XMS_ITS | Continuity of Care Document ---
Author Organization [facility] Neurosurger y [address], [address] [place] [address]- Care Team Providers Care 4 H Youth Development Specialist Name Role Phone Piotr CORDOVA, Juan Walker Primary Care Physician [phone] [place] [facility] [place]23 [place] 11/07/23 [facility] [address] [place] [address], [address] [place], [place] [address] Attending Physician: Deirdre Bueno Admitting Physician: AdmDeirdre mg Referring Physician: AdmtrDeirdre Allergies, Adverse Reactions, Alerts Substance Reaction Severity Status amoxicillin Active amLODIPine Active Immunizations Given and Recorded Vaccine Date Status Refusal Reason SARS-CoV-2 mRNA (jcqhjgh-ntlp-olafv) vax 1 02/21/22 Given Hepatitis A Adult Vaccine 2 02/21/22 Given Hepatitis A Adult Vaccine 3 08/24/21 Given hepatitis B adult vaccine 4 09/25/21 Given hepatitis B adult vaccine 5 08/24/21 Given SARS-CoV-2 (COVID-19) Ad26 vaccine 11/22/20 Record ed SARS-CoV-2 (COVID-19) Ad26 vaccine 11/22/20 Record ed tetanus/diphtheria/pertussis, acel(Tdap) 07/21/18 Given 1Result Comment: [facility]-[id number] 2Result Comment: [facility]-[id number] 3Result Comment: [id number] 4Result Comment: [facility]-[id number] 5Result Comment: [facility]-[id number] Medications hydrochlorothiazide-valsartan 12.5 mg-160 mg oral tablet [...] Team Personnel Name: Juan Saldaña MD Position: [facility] Physician - Primary Care Member Role: PCP Address: Address: [address] [place] [address]- Care Team Related Persons Name: ILDEFONSO GEOVANNAZAINAB BERT Address: [facility] [place] [address] Name: CASANDRA SHERWOOD Address: home [address] [place] [address] Name: JUNE SHERWOOD Name: JYOTI DE LA CRUZ
--- OUTSIDE RECORDS SUMMARY | 2024-02-27 09:47 | XMS_ITS | Continuity of Care Document ---
Author Organization [facility] Clay Franklyn Address [address] [place] [address]- Care Team Providers Care Geodetic Computator Name Role Phone Piotr CORDOVA, Juan Walker Primary Care Physician En[place] [facility] [place] Date(s): 11/18/23 - 12/18/23 [facility] Adult [address] [place] [address]- Allergies, Adverse Reactions, Alerts Substance Reaction Severity Status amoxicillin Active amLODIPine Active Immunizations Given and Recorded Vaccine Date Status Refusal Reason SARS-CoV-2 mRNA (keyavbm-snrk-anmvy) vax 1 02/21/22 Given Hepatitis A Adult Vaccine 2 02/21/22 Given Hepatitis A Adult Vaccine 3 08/24/21 Given hepatitis B adult vaccine 4 09/25/21 Given hepatitis B adult vaccine 5 08/24/21 Given SARS-CoV-2 (COVID-19) Ad26 vaccine 11/22/20 Record ed SARS-CoV-2 (COVID-19) Ad26 vaccine 11/22/20 Record ed tetanus/diphtheria/pertussis, acel(Tdap) 07/21/18 Given 1Result Comment: [facility]-[id number] 2Result Comment: [id number] 3Result Comment: [id number] 4Result Comment: [id number] 5Result Comment: [id number] Medications hydrochlorothiazide-valsartan 12.5 mg-160 mg oral tablet 1 tablet, By Mouth, Daily, for 90 days, # 90 tablet, 1 Refills, Hard Stop 04/05/24 12:27:00 EDT, 10/08/23 12:27:00 EST, Tablet, [id number], Partial fill upon patient request if the [...] Personnel Name: Piotr CORDOVA, Juan Walker Position: [facility] Physician - Primary Care Member Role: PCP Address: Address: [address] [place] [address]- Care Team Related Persons Name: BERT SAINZ Address: [place] [address] Name: CASANDRA SHERWOOD Address: home [address] [place] [address] Name: JUNE SHERWOOD Name: JYOTI DE LA CRUZ
--- OUTSIDE RECORDS SUMMARY | 2024-02-27 09:47 | XMS_ITS | Continuity of Care Document ---
Author Organization [facility] Mohan Williamson Franklyn lt Address [address] [place] [address]- Care Team Providers Care Baby Nurse Name Role Phone Piotr CORDOVA, Juan Walker Primary Care Physician Encounter [facility] Date(s): 10/18/23 - 11/17/23 [facility] Adult [address] [place] [address]- Allergies, Adverse Reactions, Alerts Substance Reaction Severity Status amoxicillin Active amLODIPine Active Immunizations Given and Recorded Vaccine Date Status Refusal Reason SARS-CoV-2 mRNA (obgnfdy-xzju-myqkq) vax 1 02/21/22 Given Hepatitis A Adult Vaccine 2 02/21/22 Given Hepatitis A Adult Vaccine 3 08/24/21 Given hepatitis B adult vaccine 4 09/25/21 Given hepatitis B adult vaccine 5 08/24/21 Given SARS-CoV-2 (COVID-19) Ad26 vaccine 11/22/20 Record ed SARS-CoV-2 (COVID-19) Ad26 vaccine 11/22/20 Record ed tetanus/diphtheria/pertussis, acel(Tdap) 07/21/18 Given 1Result Comment: [facility]-[id number] 2Result Comment: [facility]-[id number] 3Result Comment: [id number] 4Result Comment: [id number] 5Result Comment: [id number] Medications hydrochlorothiazide-valsartan 12.5 mg-160 mg oral tablet 1 tablet, By Mouth, Daily, for 90 days, # 90 tablet, 1 Refills, Hard Stop 04/05/24 12:27:00 EDT, 10/08/23 12:27:00 EST, Tablet, [id number], Partial fill upon patient request if the [...] Team Personnel Name: Juan Saldaña MD Position: [facility] Physician - Primary Care Member Role: PCP Address: Address: [address] [place] [address]- Care Team Related Persons Name: BERT SAINZ Address: [facility] [place] [address] Name: CASANDRA SHERWOOD Address: home [address] [place] [address] Name: JUNE SHERWOOD Name: JYOTI DE LA CRUZ
--- OUTSIDE RECORDS SUMMARY | 2024-02-27 09:47 | XMS_ITS | Continuity of Care Document ---
Author Organization [facility] Clay Franklyn lt Address [address] [place] [address]- Care Team Providers Care Rn Review Name Role Phone Piotr CORDOVA, Juan Walker Primary Care Physician En[place] [facility] [place] Date(s): 10/02/23 - 11/01/23 [facility] Adult [address] [place] [address]- Allergies, Adverse Reactions, Alerts Substance Reaction Severity Status amoxicillin Active amLODIPine Active Immunizations Given and Recorded Vaccine Date Status Refusal Reason SARS-CoV-2 mRNA (sfzoppf-qgun-ylkvb) vax 1 02/21/22 Given Hepatitis A Adult Vaccine 2 02/21/22 Given Hepatitis A Adult Vaccine 3 08/24/21 Given hepatitis B adult vaccine 4 09/25/21 Given hepatitis B adult vaccine 5 08/24/21 Given SARS-CoV-2 (COVID-19) Ad26 vaccine 11/22/20 Record ed SARS-CoV-2 (COVID-19) Ad26 vaccine 11/22/20 Record ed tetanus/diphtheria/pertussis, acel(Tdap) 07/21/18 Given 1Result Comment: [facility] [id number] 2Result Comment: [id number] 3Result Comment: [id number] 4Result Comment: [id number] 5Result Comment: [id number] Medications hydrochlorothiazide-valsartan 12.5 mg-160 mg oral tablet 1 tablet, By Mouth, Daily, for 90 days, # 90 tablet, 1 Refills, Hard Stop 04/05/24 12:27:00 EDT, 10/08/23 12:27:00 EST, Tablet, [id number], Partial fill upon patient request if the [...] Position: [facility] Physician - Primary Care Member Role: PCP Address: Address: [address] [place] [address]- Care Team Related Persons Name: BERT SAINZ Address: [place] [address] Name: CASANDRA SHERWOOD Address: [address] [address] Name: JUNE SHERWOOD Name: JYOTI DE LA CRUZ
--- OUTSIDE RECORDS SUMMARY | 2024-02-27 09:47 | XMS_ITS | Continuity of Care Document ---
Author Organization [facility] Mohan Williamson Franklyn lt Address [address] [place] [address]- Care Team Providers Care Sheep Boner Name Role Phone Juan Saldaña MD Primary Care Physician [place] [facility] [place]/12/23 - 02/19/23 [facility] Williamson Adult [address] [place] [address]- Attending Physician: Juan Saldaña MD Allergies, Adverse Reactions, Alerts Substance Reaction Severity Status amLODIPine Active Immunizations Given and Recorded Vaccine Date Status Refusal Reason SARS-CoV-2 mRNA (tkuiwfa-ascd-ehmxt) vax 1 02/21/22 Given Hepatitis A Adult Vaccine 2 02/21/22 Given Hepatitis A Adult Vaccine 3 08/24/21 Given hepatitis B adult vaccine 4 09/25/21 Given hepatitis B adult vaccine 5 08/24/21 Given SARS-CoV-2 (COVID-19) Ad26 vaccine 11/22/20 Record ed SARS-CoV-2 (COVID-19) Ad26 vaccine 11/22/20 Record ed tetanus/diphtheria/pertussis, acel(Tdap) 07/21/18 Given 1Result Comment: [facility]-[id number] 2Result Comment: [facility]-[id number] 3Result Comment: [id number] 4Result Comment: [id number] 5Result Comment: [id number] Medications hydrochlorothiazide-valsartan 12.5 mg-160 mg oral tablet 1 tablet, By Mouth, Daily, # 90 tablet, 3 Refills, Maintenance, 11/30/23 11:40:00 EDT, Tablet, [id number], Partial fill upon patient request if the prescription is for a schedule II opioid drug., 1 tablet By Mouth Daily,x90 days, 183, cm, 12/17... Start Date: 11/30/23 Stop Date: 11/24/24 Status: Ordered hydrochlorothiazide-valsartan 12.5 mg-160 mg oral tablet 1 tablet, By Mouth, Daily, for 90 days, # 90 tablet, 3 Refills, Hard Stop 11/30/23 11:40:00 EDT, 12/05/22 11:40:00 EDT, Tablet, [facility] #[id number], Partial fill upon patient request if [...] 0 Refills, Maintenance, 01/22/23 13:23:00 EDT, [facility]/pharmacy #[id number], Par... Start Date: 01/22/23 Status: Ordered [...] oldest [Reference Range]: 1 Height 183 cm (02/12/23 4:43 PM) Weight 116.9 kg (02/12/23 4:43 PM) Oxygen Saturation [94-100 %] 77 % *L* (02/12/23 4:43 PM) Pulse Rate [55-90 bpm] 96 bpm *H* (02/12/23 4:43 PM) Body Mass Index [18.5-24.99 kg/m2] 34.91 kg/m2 *>HHI* (02/12/23 4:43 PM) Blood Pressure [90-138/55-84 mm Hg] 121/ 83mm Hg (02/12/23 4:43 PM) Mode of Delivery (Oxygen) Room air (02/12/23 4:43 PM) Blood pressure sites Arm, left (02/12/23 4:43 PM) Weight Obtained Via Standing scale (02/12/23 4:43 PM) Social History Social History Type Response Tobacco Other: quit igh t smoker. Sex Patient Care team information Care Team Personnel Name: Piotr CORDOVA, Juan Walker Position: [facility] Physician - Primary Care Member Role: PCP Address: Address: [address] [place] [address]- Care Team Related Persons Name: BERT FREGOSO Name: CASANDRA SHERWOOD Address: [address] [place] [address] Name: JUNE SHERWOOD Name: JYOTI DE LA CRUZ
--- OUTSIDE RECORDS SUMMARY | 2024-02-27 09:47 | XMS_ITS | Continuity of Care Document ---
Author Organization [facility] Clay Franklyn lt Address [address] [place] [address]- Care Team Providers Care Product Development Consultant Name Role Phone Pilar CORDOVA, Spencer Butler Primary Care Physician En[place] [facility] [place] Date(s): 01/18/22 - 02/17/22 [facility] [place] Adult [address] [place], [place] [address] Allergies, Adverse Reactions, Alerts Substance Reaction Severity Status amLODIPine Active Immunizations Given and Recorded Vaccine Date Status Refusal Reason hepatitis B adult vaccine 1 09/25/21 Given hepatitis B adult vaccine 2 08/24/21 Given Hepatitis A Adult Vaccine 3 08/24/21 Given SARS-CoV-2 (COVID-19) Ad26 vaccine 11/22/20 Record ed SARS-CoV-2 (COVID-19) Ad26 vaccine 11/22/20 Record ed tetanus/diphtheria/pertussis, acel(Tdap) 07/21/18 Given 1Result Comment: [facility] [place]-[id number] 2Result Comment: [facility] [place]-[id number] 3Result Comment: [id number] Medications predniSONE 20 mg oral tablet 1 tablet = 20 mg, By Mouth, 2 times a day, with food or milk, # 20 tablet, 0 Refills, Maintenance, 01/31/22 10:01:00 EDT, Tablet, [facility]/pharmacy #[id number], Partial fill upon patient request if the [...]
== END 2024-02-27 10:18 | disposition home or self-care (01) ==
PROVIDERS: PCP Family Medicine; Visit Provider Registered Nurse
DX: S19.9XXA Unspecified injury of neck, initial encounter (principal); Z48.89 Encounter for other specified surgical aftercare; Z04.2 Encounter for examination and observation following work accident
CPT/HCPCS: 99213

== ENCOUNTER 2025-07-03 19:16 | Emergency (ER) | payer OTHER, SELFPAY ==
--- NOTE | ~2025-07-03 | XR_ITS ---
CLINICAL HISTORY: atraumatic ankle pain 3 view right ankle Comparison: None provided Findings: No acute osseous abnormality. Posterior calcaneal enthesophyte. Os peroneum. Degenerative changes of the ankle joint. 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 Posterior calcaneal enthesophyte. This document has been electronically signed by: Angelica Toro MD on 07/03/2025 20:30:53
--- NOTE | 2025-07-03 19:39 | ED.LOWEXIN ---
HPI - Extremity Injury (Lower) General Chief Complaint: Extremity Injury, Lower Stated Complaint: Knee Leg Pain Time Seen by Provider: 07/03/25 20:38 Source: patient Mode of arrival: ambulatory Limitations: no limitations History of Present Illness ED Provider: Maggie Ross APRN HPI Narrative: 64 yo male with history of HTN, left hip replacement here with atraumatic right ankle pain intermittent x several weeks. Worsened in the morning and with initially walking. No associated weakness, numbness, tingling of the extremity. No swelling, redness or warmth. Related Data Home Medications ?Medication ?Instructions ?Recorded ?Confirmed valsartan 160 1 tab PO DAILY 10/22/22 mg-hydrochlorothiazide 12.5 mg tablet Allergies Allergy/AdvReac Type Severity Reaction Status Date / Time amoxicillin (AMOXICILLIN) Allergy Unknown UNKNOWN Verified 07/03/25 19:43 Review of Systems Review of Systems: Yes all other systems are reviewed and are negative Constitutional: Constitutional: Reports no additional constitutional complaints, Denies body ache(s), Denies chills, Denies fever(s), Denies headache(s) and Denies weakness Eyes: Eyes: Reports no additional eye complaints and Denies change in vision ENT: Reports system reviewed and no additional complaints, except as documented, Denies dizziness, Denies headache(s), Denies nasal congestion, Denies nasal discharge and Denies neck pain Cardiovascular: Cardiovascular: Reports no additional cardiovascular complaints, Denies chest pain, Denies leg edema and Denies dyspnea Respiratory: Respiratory: Reports no additional respiratory complaints, Denies cough and Denies dyspnea Gastrointestinal: Gastrointestinal: Reports no additional gastrointestinal complaints, Denies abdominal pain, Denies diarrhea, Denies nausea and Denies vomiting Genitourinary: Genitourinary: Denies urinary incontinence Musculoskeletal: Musculoskeletal: Reports no additional musculoskeletal complaints, Denies back pain, Reports arthralgias, Denies joint swelling, Denies limited range of motion, Denies neck pain, Denies numbness and Denies tingling Integumentary/Breasts: Skin/Breast: Reports system reviewed and no additional complaints, except as docu and Denies rash Neurologic: Reports system reviewed and no additional complaints, except as documented, Denies Abnormal speech present, Denies dizziness, Denies headache(s), Denies numbness, Denies tingling and Denies weakness [facility] Past Medical History Attestation statement: The following information was validated with the patient. Source: old records reviewed and nursing notes reviewed Medical History Plantar fasciitis of right foot Plantar fasciitis of left foot Plantar fasciitis HTN (hypertension) Surgical History History of total left hip replacement Social History Social History Patient Tobacco Use Status: Never used Tobacco Advance Directives: No Advance Directives Information Provided: No Do you have a plan to hurt others: No Plan Physical Exam Vital Signs: Vital Signs: Last Vital Signs Temp 97.4 F 07/03/25 21:44 Pulse 48 L 07/03/25 21:44 Resp 18 07/03/25 21:44 BP 173/79 H 07/03/25 21:44 Pulse Ox 95 07/03/25 21:44 O2 Del Method Room Air 07/03/25 21:44 BMI result Body Mass Index 27.1 Const: General: cooperative, healthy appearing, comfortable and no acute distress Orientation/consciousness: patient oriented x3 Limitations: no limitations HEENT: Head: Yes normal to inspection Ears: hearing grossly normal bilaterally General nose exam: Normal external nose present Face and sinus: Yes normal facial exam Mouth: Normal oral and palatal mucosa present Throat: Yes posterior oropharynx normal Eyes: General: appearance normal, both eyes and all related structures Pupils: Equal, round and reactive pupils present Neck: Neck: Yes normal visual inspection Chest: Chest palpation & inspection: normal inspection of the chest Resp: Effort & Inspection: normal respiratory effort Auscultation: clear to auscultation bilaterally Cardio: Rate: regular rate Rhythm: regular rhythm Peripheral pulses: Peripheral pulses 2+ throughout GI: Inspection: Yes normal to inspection Palpation (GI): Soft to palpation and nontender Auscultation: normal bowel sounds Back/Spine/Pelvis: Thoracic/Lumbar Spine: thoracic and lumbar spine normal to inspection Skin: General skin exam: no rashes or lesions noted Neuro: General: patient oriented x3, no focal motor deficits and normal sensation to monofilament Cranial nerves: Yes Equal, round and reactive pupils present Cognition (Neuro): normal cognition Speech: No Abnormal speech present Gait exam (Neuro): Normal gait present Motor exam (neuro): 5/5 motor strength present throughout Extrem: Other: Pain on palpation to the right posterior ankle at the insertion site of the achilles. Negative alvarez sign. No swelling, redness or warmth. CMS intact distally. FROM General: Yes normal to inspection Course Course Course Narrative: Maggie Ross BEHAVIORAL INSTRUCTOR 07/03 1940 This is a rapid medical exam. Deferred additional HPI, ROS, PE to primary provider. 64 yo male here with atraumatic right ankle pain intermittent x several weeks. Will obtain x-ray VSS Medical Decision Making Medical Decision Making MDM Narrative: 64 yo male with history of HTN, left hip replacement here with atraumatic right ankle pain intermittent x several weeks. Worsened in the morning and with initially walking. No associated weakness, numbness, tingling of the extremity. No swelling, redness or warmth. Pain on palpation to the posterior ankle at the achilles insertion site. Negative alvarez sign. No swelling, redness or warmth. CMS intact distally. FROM Will obtain x-rays Differential Diagnosis Differential Diagnoses: The differential diagnosis associated with the presentation includes sprain, strain, achilles tendonpathy Low suspciain for dvt, cellilitis, septic arthritis, fracture, dislocation Admission/Observation Consideration of admission/observation: Escalation of care including admission/observation considered Independent Interpretation I performed an independent interpretation of an: Plain X-Ray Interpretation: I independetely reviewed the x-rays and agree with the rad report Radiology Impression Discussion of test interpretation with radiology: I have reviewed the radiologist's reading. Radiologist Impression: [place] [id number] XRay Report Signed Patient: Poncho Baltazar MR#: [id number] : 1960 Acct:[id number] Age/Sex: 64 / M ADM Date: 07/03/25 Loc: HO.ED Attending Dr: Ordering Physician: Maggie Ross NP Date of Service: 07/03/25 Procedure(s): XR ankle RT 2V Accession Number(s): [id number] cc: Maggie Ross NP~ Reason for Exam: atraumatic ankle pain CLINICAL HISTORY: atraumatic ankle pain 3 view right ankle Comparison: None provided Findings: No acute osseous abnormality. Posterior calcaneal enthesophyte. Os peroneum. Degenerative changes of the ankle joint. 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 Posterior calcaneal enthesophyte. This document has been electronically signed by: Angelica Toro MD on 07/03/2025 20:30:53 Discharge Plan Discharge Clinical Impression: Ankle pain, right Patient Disposition: Home, Self-Care Instructions: Arthralgia (ED) Additional Instructions: Reason for Exam: atraumatic ankle pain CLINICAL HISTORY: atraumatic ankle pain 3 view right ankle Comparison: None provided Findings: No acute osseous abnormality. Posterior calcaneal enthesophyte. Os peroneum. Degenerative changes of the ankle joint. 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 Posterior calcaneal enthesophyte. This document has been electronically signed by: Angelica Toro MD on 07/03/2025 20:30:53 Ice to the area Gentle stretching Layo wrap and crutches for the next few days Tylenol for pain as needed Follow-up with your orthopedics as needed Prescriptions: No Action valsartan-hydrochlorothiazide 160-12.5 mg tablet 1 tab PO DAILY Interventions: ED Discharge Assessment Last Done: 07/03/25 21:44 Discharge Date/Time: 07/03/25 20:58 Print Language: Sinhala
[2025-07-03 19:42] VITALS: BP 173/79; PULSE 48; RESP 18; TEMP 36.3; O2SAT 95; BMI 27.1
--- OUTSIDE RECORDS SUMMARY | 2025-07-03 21:06 | XMS_ITS | Encounter Summary ---
Author Organization [facility] Address [address] [facility] [address] [place] [address] Phone Care Team Providers Care Heavy Truck Technician Name Role Phone Juan Saldaña MD Primary Care Provider + Sheila Coy Unavailable Encounter Details Date Type Department Care Team (Late st Contact Info) Description 02/13/2024 Procedure Pass [facility] [address] [place] [id number] Social History Tobacco Use Types Packs/Day Years Used Date Smoking Tobacco: Former Cigarettes Smokeless Tobacco: Never Comments:Smoked 1 pack per m [facility] 2003 to 2013 Alcohol Use Standard Drinks/Week Comments Not Currently 0 (1 standard drink = 0.6 oz pur e alcohol) very little Education Answer Date Recorded Are you interested in more education? Not on lana e 12/15/2022 Are you concerned about learning? Not on file 12/15/2022 No 12/15/2022 No 12/15/2022 Digital Access Answer Date Recorded No 01/15/2023 No 01/15/2023 Reliable internet access at home? Not on file 01/15/2023 Device with a working camera? Not on file Intimate Partner Violence Answer Date R ecorded Are you denied basic needs s uch as food, clothing, or medical care? No 02/13/2024 In the past 12 months have y ou been in a relationship with a person who hurts, threatens, or tries to control you? No 02/13/2024 Are you denied basic needs s uch as food, clothing, or medical care? No 02/13/2024 In the past 12 months have y ou been in a relationship with a person who hurts, threatens, or tries to control you? No 02/13/2024 Sex and Gender Information Value Date Recorded Sex Assigned at Male 01/27/2021 10:57 AM EDT Legal Sex Male 10:48 AM EDT Gender Identity Male 01/27/2021 10:57 AM EDT Sexual Orientation Straight 01/27/2021 10 :57 AM EDT documented as of this encounter Functional Status * Calculated C-SSRS Risk Score (Lifetime/Recent) Answer Date of Assessment Author No Risk Indicated 02/13/2024 6:04 PM EDT Tammi Tatum RN * [place] Suicide Severity Rating Scale (Screener/Recent Self-Report) Question Answer Date of Assessment Author 1. Wish to be (Past 1 Month) No 024 6:04 PM EDT Tammi Tatum RN 2. Non-Specific Active Suici vannessa Thoughts (Past 1 Month) No 02/13/2024 6:04 PM EDT Tammi Tatum RN 6. Suicidal Behavior (Lifetime) No 6:04 PM EDT Tammi Tatum RN documented as of this encounter Plan of Treatment Not on file documented as of this encounter Visit Diagnoses Not on filedocumented in this encounter Care Teams Heavy Truck Technician Relationship Specialty Start Date End Date Juan Saldaña MD [address] [place] [phone] PCP - General Family Medicine 10/19/22 Sheila Coy PA [address] [place] [address] Physician Electro Mechanical Designer 01/30/24 documented as of this encounter Additional Source Comments The information contained in this document represents components of the legal health record. It is not the complete legal health record.[facility]
--- OUTSIDE RECORDS SUMMARY | 2025-07-03 21:06 | XMS_ITS ---
Author Name [facility] Organization Unknown History of Medication Use Medication Directions Dispensed Refills Start Date End Date Stat us Euflexxa 10 mg/mL (mw 2.4-3.6 million) intra-articular syringe Inject 10 mg by intra-articular route for 21 days. 12/24/2022 active valsartan-hydrochlo rothiazide (DIOVAN-HCT) 160-12.5 MG per tablet valsartan 160 mg-hydrochlorothi azide 12.5 mg tablet TAKE 1 TABLET BY MOUTH EVERY DAY 04/13/2022 active budesonide 0.5 mg/2 mL suspension for nebulization MIX 2ML (1 AMPULE) WITH 8 OZ OF SALINE SOLUTION THEN IRRIGATE EACH NOSTRIL WITH 1/2 BOTTLE EVERY DAY 02/04/2023 active cefuroxime axetil 500 mg tablet 02/04/2023 completed celecoxib 200 mg capsule TAKE 1 CAPSULE BY MOUTH EVERY DAY (POST-OP) 02/04/2023 active clindamycin HCl 150 mg capsule TAKE 2 CAPSULES BY MOUTH EVERY 6 HORUS 7 DAYS UNTIL FINISHED 02/04/2023 completed doxycycline hyclate 100 mg tablet TAKE 1 TABLET BY MOUTH TWICE A DAY 02/04/2023 active Eliquis 2.5 mg tablet TAKE 1 TABLET BY MOUTH TWICE A DAY FOR 7 DAYS 02/04/2023 completed erythromycin 5 mg/gram (0.5 %) eye ointment APPLY TO AFFECTED LIDS DAILY AT BEDTIME 02/04/2023 completed erythromycin 500 mg tablet TAKE 2 TABLETS BY MOUTH 1 HOUR PRIOR TO DENTAL WORK 02/04/2023 active lisinopril 10 mg-hydrochlorothiaz saravanan 12.5 mg tablet TAKE 1 TABLET BY MOUTH EVERY DAY 02/04/2023 active ondansetron HCl 4 mg tablet TAKE 2 TABLET(S) 2 TIMES A DAY BY ORAL ROUTE. NEEDED FOR NAUSEA 02/04/2023 completed oxycodone 5 mg tablet TAKE 1 TABLET (5 MG TOTAL) BY MOUTH EVERY 6 (SIX) HOURS NEEDED. PT. MAY REQUEST PARTIAL FILL 02/04/2023 completed prednisone 10 mg tablet PLEASE SEE ATTACHED FOR DETAILED DIRECTIONS 02/04/2023 completed prednisone 20 mg tablet TAKE 1 TABLET BY MOUTH TWICE A DAY WITH FOOD OR MILK 02/04/2023 active Euflexxa 10 mg/mL (mw 2.4-3.6 million) intra-articular syringe active valsartan 160 mg-hydrochlorothiaz saravanan 12.5 mg tablet TAKE 1 TABLET BY MOUTH EVERY DAY active Allergies Allergen Reaction Severity Comment Documented Date Source Statu s AMLODIPINE OTHER (SEE COMMENTS) 11/24/2021 [facility] active AMOXICILLIN OTHER (SEE COMMENTS) 10/13/2020 [facility] T active Problems Problem Status Onset Date Problem Type Date of Resoluti on Source Primary osteoarthritis involving multiple joints active 2022-06-20 ProblemAct [facility] Myopathy active 2022-06-20 ProblemAct [facility] Osteoarthritis of right knee joint active 2022-12-16 ProblemAct [facility] Encounters Encounter Type Encounter Reason Primary Diagnosis Location Date Ambulatory [facility] 05/03/2023 Ambulatory [facility] 03/29/2023 Ambulatory [facility] 02/22/2023 Ambulatory [facility] 02/02/2023 Ambulatory [facility] 02/02/2023 Ambulatory [facility] 12/19/2022 Ambulatory [facility] 12/17/2022 Ambulatory [facility] 12/17/2022 Ambulatory [facility] 12/14/2022 Ambulatory [facility] 11/07/2022 Ambulatory Myopathy, unspecified [facility] [employer] [facility] 06/20/2022 Care Team Organization Name Specialty Phone Email Start Date End [facility] 01/19/2023 [facility] [employer] [facility] 06/20/202206/20 [facility] [employer] [facility] 06/20/2022 [facility] Alverto Stearns MD Primary Care
--- OUTSIDE RECORDS SUMMARY | 2025-07-03 21:06 | XMS_ITS | Encounter Summary ---
Author Organization [facility] Address [address] [facility] [address] [place] [address] Phone Care Team Providers Care Developmental Behavioral Physician Name Role Phone Alverto Stearns MD Primary Care Provider [phone] Spencer Quezada MD Primary Care Provide r Juan Saldaña MD Primary Care Provider + Sheila Coy PA Unavailable [phone] Encounter Details Date Type Department Care Team (Late st Contact Info) Description 04/21/2021 Ancillary Orders [facility], X-Ray - [address] [place] [address] Khai Diaz I, DO [address] [address] [email or web address] Acute pain of right knee Social History Tobacco Use Types Packs/Day Years Used Date Smoking Tobacco: Never Assessed Sex and Gender Information Value Date Recorded Sex Assigned at Male 01/27/2021 10:57 AM EDT Legal Sex Male 10:48 AM EDT Gender Identity Male 01/27/2021 10:57 AM EDT Sexual Orientation Straight 01/27/2021 10 :57 AM EDT documented as of this encounter Plan of Treatment Not on file documented as of this encounter Results * XR KNEE 4 OR MORE VIEWS (RIGHT) (04/21/2021 9:18 AM EDT) Anatomical Region Laterality Modality Knee Right Computed Radiogr aphy 04/21/2021 9:34 AM EDT Impressions 04/21/2021 9:37 AM EDT Mild-moderate degenerative changes at the medial compartment on the right. Narrative 04/21/2021 9:37 AM EDT HISTORY: Acute right knee pain. COMPARISON: None. VIEWS: Tunnel view of both knees and 3 separate views of the right knee. FINDINGS: Moderate joint space narrowing medially. Lateral joint spaces well-maintained. Mild marginal spurring at the medial compartment. Minimal spurring at the patellofemoral compartment. No fractures, subluxations or dislocations. No evidence of a joint effusion. Procedure Note Faizan Gray MD - 04/21/2021 HISTORY: Acute right knee pain. COMPARISON: None. VIEWS: Tunnel view of both knees and 3 separate views of the rightknee. FINDINGS: Moderate joint space narrowing medially. Lateral joint spaceswell-maintained. Mild marginal spurring at the medial compartment. Minimalspurring at the patellofemoral compartment. No fractures, subluxations ordislocations. No evidence of a joint effusion. IMPRESSION: Mild-moderate degenerative changes at the medial compartment on theright. us Khai Diaz DO IMG XR LOWER EXTREMITY Final Result documented in this encounter Visit Diagnoses Diagnosis Acute pain of right knee Acute pain of right knee documented in this encounter Care Teams Developmental Behavioral Physician Relationship Specialty Start Date End Date Alverto Stearns MD [address] [place] [address] PCP - General Gastroenterology 01/27/21 12/28/21 Spencer Quezada MD [address] [place] [address] PCP - General Internal Medicine 12/29/21 10/18/22 Juan Saldaña MD [address] [place] [phone] PCP - General Family Medicine 10/19/22 Sheila Coy PA [address] [place] [phone] Physician Trading Specialist 01/30/24 documented as of this encounter Additional Source Comments The information contained in this document represents components of the legal health record. It is not the complete legal health record.[facility]
--- OUTSIDE RECORDS SUMMARY | 2025-07-03 21:07 | XMS_ITS | Encounter Summary ---
Author Organization [facility] Address [address] [facility] [address] [place] [address] Phone Care Team Providers Care Meat Boner Name Role Phone Juan Saldaña MD Primary Care Provider + Sheila Coy PA Unavailable [phone] Encounter Details Date Type Department Care Team (Late st Contact Info) Description 10/02/2023 Procedure Pass [facility], [address] [place] [address] Social History Tobacco Use Types Packs/Day Years Used Date Smoking Tobacco: Never Smokeless Tobacco: Never Alcohol Use Standard Drinks/Week Comments Not Currently [...] with a working camera? Not on file Sex and Gender Information Value Date Recorded Sex Assigned at Male 01/27/2021 10:57 AM EDT Legal Sex Male 10:48 AM EDT Gender Identity Male 01/27/2021 10:57 AM EDT Sexual Orientation Straight 01/27/2021 10 :57 AM EDT documented as of this encounter Plan of Treatment Not on file documented as of this encounter Visit Diagnoses Not on filedocumented in this encounter Care Teams Meat Boner Relationship Specialty Start Date End Date Juan Saldaña MD [address] [place] [address] PCP - General Family Medicine 10/19/22 Sheila Coy PA [address] [place], [place] [phone] Physician General Hardware Salesperson 01/30/24 documented as of this encounter Additional Source Comments The information contained in this document represents components of the legal health record. It is not the complete legal health record.[facility]
--- OUTSIDE RECORDS SUMMARY | 2025-07-03 21:07 | XMS_ITS | Encounter Summary ---
Author Organization [facility] Address [address] [facility] [address] [place] [address] Phone Care Team Providers Care Ticket Taker Name Role Phone Juan Saldaña MD Primary Care Provider + Sheila Coy Unavailable [phone] Encounter Details Date Type Department Care Team (Late st Contact Info) Description 10/02/2023 Procedure Pass [facility], Ct Scan - [address] [address] Social History Tobacco Use Types Packs/Day Years [...] on filedocumented in this encounter Care Teams Ticket Taker Relationship Specialty Start Date End Date Juan Saldaña MD [address] [place], [place] [phone] PCP - General Family Medicine 10/19/22 Sheila Coy PA [address] [place] [address] Physician Rack Loader 01/30/24 documented as of this encounter Additional Source Comments The information contained in this document represents components of the legal health record. It is not the complete legal health record.[facility]
--- OUTSIDE RECORDS SUMMARY | 2025-07-03 21:07 | XMS_ITS | Patient Health Record ---
Author Organization [facility] Sheila susanna [place] Address [address] [place] [address] Care Team Providers Care Investigator Fraud Name Role Phone Alverto Stearns MD Primary Care Provider UnavailKhai Clemente Unavailable [phone] Reason For Referral No Information Medications Medication SIG (Take, Route, Frequency, Duration) Notes Start Date End Date Status Custom Orthotics as directed 06/16/2018 Active Physical Therapy . . . 2-3x/week; Durat ion: 3-4 weeks 06/16/2018 Active Night Splint AFO - L1930 as directed 06/16/2018 Active Social History Tobacco Use: Social History Observation Description Date Details (start date - stop date) Never Smoker NA - NA Tobacco Use/Smoking Question Answer Notes Are you a: nonsmoker Additional Findings: Tobacco Non-User Current no n-smoker Alcohol Screen Question Answer Notes Did you have a drink containing alcohol in the p ast year? Yes Points 0 Interpretation Negative Tobacco use other than smoking: Question Answer Notes Are you an other tobacco user? No Plan Of Treatment Pending Test Test Name Order Date X ray : Foot, left 3V 06/16/2018 X ray : Foot, right 3V 06/16/2018 Insurance Providers Payer Name Payer Address Payer Phone Subscriber Number Group Number Insured Name Patient Relationship to Insured Coverage Start Date Coverage End Date [facility] [address] [place] [phone] [id number] Poncho Baltazar Self - patient is the insured Medical (General) History Medical History History ICD Code Chicken pox Seasonal allergies Surgical History Surgery Date(Month/Year) knee surgery
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
--- OUTSIDE RECORDS SUMMARY | 2025-07-03 21:07 | XMS_ITS | Data Portability ---
Author Organization [facility], OFFICE Address [address] [address] [address] Assessment Encounter Date Assessment Date Assessment LastModified by Organization Details LastModified Time 02/02/2022 02/02/2022 We discussed the options related to his treatment. 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 Left total hip arthroplasty is clearly the most reasonable treatment alternative at this point. We discussed the issues related to total hip arthroplasty in a lot of detail today including the preoperative process, the operative techniques, less invasive techniques, computer-assiste d techniques, the types of implants, the types of bearings, and the perioperative risks. In addition, we discussed the typical hospitalization course following surgery and reasonable expectations for recovery, outcome, activity level, and long-term followup. He is interested in proceeding and we will begin to make arrangements. This visit was conducted as a real-time telehealth interactive video visit during this ongoing pandemic. He was identified and consented to this telehealth visit. I spent a total of 20 minutes during this encounter. Greater than 50% of the time was devoted to counseling and coordinating care. This included reviewing records and pertinent studies, discussing diagnostic evaluation and workup, planning therapeutic interventions, and formulating the future disposition of care. sbm Not available 02/02/2022 15:24:39 06/25/2022 06/25/2022 Mr. Baltazar is progressing well now following revision LTHR. We plan to work on progression of motion, strength, and activity as tolerated. This visit was conducted as a real-time telehealth interactive video visit during this ongoing pandemic. He was identified and consented to this telehealth visit. I spent a total of 15 minutes during this encounter. Greater than 50% of the time was devoted to counseling and coordinating care. This included reviewing records and pertinent studies, discussing diagnostic evaluation and workup, planning therapeutic interventions, and formulating the future disposition of care. sbm Not available 06/25/2022 18:02:29 Plan of Treatment Reminders Order Date Submit Date Provider Last Modified By Organization Details Last Modified Time Details Appointments None record ed. Lab None record ed. Referral None record ed. Procedures None record ed. Surgeries None record ed. Imaging None record ed. Medication Orders None record ed. Patient TargetsNo targets recorded. Patient InstructionsNo instructions recorded. Reason for Referral None Reported. Problems No Known Problems Procedures Surgical History Date Name Laterality Status Provider Name and Address Organization Details Recorded Time 05/11/20 revision of left total hip arthroplasty completed Franchesca Malloy MA - Comp[facility]Assistd and [facility] 06/25/2022 09:58:47 04/25/20 total replacement of left hip joint completed Franchesca Malloy MA - Comp-Assistd and Rcnstrctive Surgry 06/25/2022 09:58:35 Imaging Results None recorded. Procedure Notes None recorded. Medical Equipment None Reported. Allergies No known drug allergies Medications Name Sig Start Date Stop Date Status Note LastModified by Organization Details LastModified Time celecoxib 200 mg capsule TAKE 1 CAPSULE BY MOUTH EVERY DAY (POST-OP) active Not Available Not Available No t Available prednisone 10 mg tablet PLEASE SEE ATTACHED FOR DETAILED DIRECTIONS active Not Available Not Available N ot Available doxycycline hyclate 100 mg capsule TAKE 1 CAPSULE BY MOUTH TWICE A DAY active Not Available Not Available No t Available erythromycin 500 mg tablet Take 2 tablet(s) 1hr prior to dental work active Not Available Not Available No t Available azithromycin 250 mg tablet TAKE 2 TABLETS BY MOUTH TODAY, THEN TAKE 1 TABLET DAILY FOR 4 DAYS active Not Available Not Available No t Available ondansetron HCl 4 mg tablet TAKE 2 TABLET(S) 2 TIMES A DAY BY ORAL ROUTE. NEEDED FOR NAUSEA active Not Available Not Available No t Available prednisone 20 mg tablet active Not Available Not Available Not Available valsartan 160 mg-hydrochlo rothiazide 12.5 mg tablet TAKE 1 TABLET BY MOUTH EVERY DAY active Not Available Not Available No t Available clindamycin HCl 150 mg capsule TAKE 2 TABLETS EVERY 6 HOURS FOR 7 DAYS UNTIL FINISHED active Not Available Not Available No t Available amlodipine 5 mg tablet TAKE 1 TABLET BY MOUTH EVERY DAY active Not Available Not Available No t Available doxycycline monohydrate 100 mg capsule TAKE 1 CAPSULE BY MOUTH TWICE A DAY FOR 2 WEEKS active Not Available Not Available No t Available cephalexin 500 mg capsule 500 MG ORALLY 4 TIMES A DAY active Not Available Not Available Not Available erythromycin 5 mg/gram (0.5 %) eye ointment APPLY TO AFFECTED LIDS DAILY AT BEDTIME active Not Available Not Available N ot Available indomethacin 25 mg capsule TAKE 2 CAPS BY MOUTH WITH FOOD DIRECTED 3 TIMES A DAY X2 DAYS THEN 1 CAP 3 TIMES A DAY X3 DAYS active Not Available Not Available Not Available budesonide 0.5 mg/2 mL suspension for nebulization MIX 2ML (1 AMPULE) WITH 8 OZ OF SALINE SOLUTION THEN IRRIGATE EACH NOSTRIL WITH 1/2 BOTTLE EVERY DAY active Not Available Not Available No t Available azelastine 137 mcg (0.1 %) nasal spray USE 2 SPRAYS BY NASAL ROUTE 2 (TWO) TIMES A DAY. USE IN EACH NOSTRIL DIRECTED active Not Available Not Available No t Available lisinopril 10 mg-hydrochlo rothiazide 12.5 mg tablet TAKE 1 TABLET BY MOUTH EVERY DAY active Not Available Not Available No t Available cefuroxime axetil 500 mg tablet active Not Available Not Available No t Available fluticasone propionate 50 mcg/actuatio n nasal spray,suspen rashmi USE 2 SPRAYS IN BOTH NOSTRILS DAILY IN THE MORNING active Not Available Not Available Not Available doxycycline hyclate 100 mg tablet TAKE 1 TABLET BY MOUTH TWICE A DAY active Not Available Not Available No t Available amoxicillin 875 mg-potassium clavulanate 125 mg tablet TAKE 1 TABLET BY MOUTH EVERY 12 HOURS FOR 7 DAYS TAKE WITH FOOD OR MILK active Not Available Not Available No t Available oxycodone 5 mg tablet TAKE 1 TABLET (5 MG TOTAL) BY MOUTH EVERY 6 (SIX) HOURS NEEDED. PT. MAY REQUEST PARTIAL FILL active Not Available Not Available No t Available clindamycin 1 % lotion APPLY TOPICALLY TO THE AFFECTED AREA TWICE DAILY. active Not Available Not Available No t Available ciprofloxaci n 0.3 %-dexamethas one 0.1 % ear drops,suspen rashmi INSTILL 4 DROPS INTO BOTH EARS TWICE A DAY active Not Available Not Available Not Available Eliquis 2.5 mg tablet TAKE 1 TABLET BY MOUTH TWICE A DAY FOR 7 DAYS active Not Available Not Available No t Available Vitals Date Recorded Body height Body mass index (BMI) Body weight Provider Name and Address Organization Details Last Updated DateTime 08/28/2022 182.88 cm 30.5 kg/m2 103230.28 g Franchesca Malloy MA - Comp-Assistd and Rcnstrctive Surgry 08/28/2022 12:13:43 Social History Question Answer Notes LastModified by Organizat ion Details LastModified Time Tobacco Smoking Status Former Smoker Franchesca Malloy null, [place] - [facility]Assistd and [facility] 01/31/2022 12:04:10 What Was The Date Of Your Most Recent Tobacco Screening? 01/31/2022 [email or web address] Information not available 01/31/2022 Sex: Unknown Functional Status Question Answer Note LastModified by Organization D etails LastModified Time Do you or have you ever used any other forms of tobacco or nicotine? No [email or web address] Information not available 01/31/2022 Are you able to care for yourself independently? Yes [email or web address] Information not available 01/31/2022 Mental Status None recorded. Family History Nothing Reported. Medical History Condition Response Heart Problems Y Arthritis Y Hypertension Y Past Encounters Encounter ID Performer Location Encounter Start Date Encounter Closed Date Diagnosis/Indication Diagnosis SNOMED-CT Code Diagnosis ICD10 Code Diagnosis IMO Codes Diagnosis Note [id number] Abhinav Lawson MD [facility] [address] [place] [address] 02/02/2022 13:13:27 03/14/2022 11:42:05 [id number] Abhinav Lawson MD [facility] [address] [place] [address] 06/25/2022 09:56:56 06/26/2022 09:24:31 Health Concerns Section Related Observation LastModified by Organization Detai ls LastModified Time None Recorded Concern Status LastModified by Organization Details LastModified Time None Recorded Advance Directives Directive None Recorded Payers Insurance Date Sequence Insurance Name Policy Number Policy Hsieh Covered Member ID Hsieh Member ID Guarantor Name 10/13/2022 1 [facility] [employer] (O) [id number] Poncho Baltazar [id number] Poncho Baltazar Notes Date Note Type Note Provider Name and Address Organization Details Recorded Time 02/02/2022 text/html Hip(s) AthenaRep orted by PatientHPIFor location, patient reportsleft,groin, andthigh. For severity, patient reportssevere. For alleviating factors, patient reportsrestandstretch ing. For aggravating factors, patient reportswalking,weight bearing,exercise, andgoing from sit to stand. For associated symptoms, patient reportsno weakness,no numbness,no tingling,no swelling,no redness,no warmth,no ecchymosis,no catching/locking,no popping/clicking,no buckling,no grinding,no instability,no radiation down leg,no drainage,no fever,no chills,no weight loss, andno change in bowel/bladder habits. For prior imaging, patient reportsx ray. For previous pt, patient reportsdid not help.ROS as noted in the [facility] Abhinav Lawson MD [address],[facility] [address], [place], [address], [place] - Comp-Assistd and Rcnstrctive Surgry 02/02/2022 15:24:42 06/25/2022 text/html Hip(s) AthenaRep orted by PatientHPIFor location, patient reportsleftandgroin. For severity, patient reportsmild. For alleviating factors, patient reportsrestandstretch ing. For aggravating factors, patient reportsexercise. For associated symptoms, patient reportsno weakness,no numbness,no tingling,no swelling,no redness,no warmth,no ecchymosis,no catching/locking,no popping/clicking,no buckling,no grinding,no instability,no radiation down leg,no drainage,no fever,no chills,no weight loss, andno change in bowel/bladder habits. For prior imaging, patient reportsx rayandct scan. For previous pt, patient reportshelped significantly.ROS as noted in the [facility] Abhinav Lawson MD [address],[facility] [address], [place], [address], [place] - Comp-Assistd and Rcnstrctive Surgry 06/25/2022 18:02:33
--- OUTSIDE RECORDS SUMMARY | 2025-07-03 21:07 | XMS_ITS | Encounter Summary ---
Author Organization [facility] Address [address] [facility] [address] [place] [address] Phone Care Team Providers Care Tube Cleaner Name Role Phone Alverto Stearns MD Primary Care Provider [phone] Spencer Quezada MD Primary Care Provide r Juan Saldaña MD Primary Care Provider + Sheila Coy PA Unavailable [phone] Encounter Details Date Type Department Care Team (Latest Contact Info) Description 03/21/2021 Transcribe Orders Virtual Department [address] [place], [place] [id number] Khai Diaz I, [address] [id number] [email or web address] Other chronic pain (Primary Dx); Low back pain, unspecified back pain laterality, unspecified chronicity, unspecified whether sciatica present Social History Tobacco Use Types Packs/Day Years [...] as of this encounter Results * XR LUMBOSACRAL SPINE 4 OR MORE VIEWS (03/22/2021 9:29 AM EDT) Anatomical Region Laterality Modality L-spine Computed Radiogr aphy 03/22/2021 9:36 AM EDT Impressions 03/22/2021 9:48 AM EDT 1.No evidence of instability. 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 3.Moderate L5-S1 disc disease. Narrative 03/22/2021 9:48 AM EDT HISTORY: As above. COMPARISON: None. LUMBAR SPINE RADIOGRAPH FINDINGS: 6 images obtained including lateral upright flexion and extension views. No acute fracture or malalignment. Mild multilevel endplate spurring and mild anterior wedging. Moderate L5-S1 disc space narrowing with bilateral spondylolysis. No compression fractures. No destructive or suspicious bone lesions. Mild distal abdominal aortic atherosclerosis. Procedure Note Matti Magaña MD - 03/22/2021 HISTORY: As above. COMPARISON: None. LUMBAR SPINE RADIOGRAPH FINDINGS: 6 images obtained including lateral upright flexion and extension views. No acute fracture or malalignment. Mild multilevel endplate spurring andmild anterior wedging. Moderate L5-S1 disc space narrowing with bilateralspondylolysis. No compression fractures. No destructive or suspicious bonelesions. Mild distal abdominal aortic atherosclerosis. IMPRESSION: 1.No evidence of instability. 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 3.Moderate L5-S1 disc disease. Khai Diaz DO IMG XR SPINE Final Result documented in this encounter Visit Diagnoses Diagnosis Other chronic pain- Primary Low back pain, unspecified back pain laterality, unspecified chronicity, unspecified whether sciatica present Other chronic pain Low back pain, unspecified back pain laterality, unspecified chronicity, unspecified whether sciatica present documented in this encounter Care Teams Tube Cleaner Relationship Specialty Start Date End Date Alverto Stearns MD [address] [place] [address] PCP - General Gastroenterology 01/27/21 12/28/21 Spencer Quezada MD [address] [place] [address] PCP - General Internal Medicine 12/29/21 10/18/22 Juan Saldaña MD [address] [place] [address] PCP - General Family Medicine 10/19/22 Sheila Coy PA [address] [place] [address] Physician Founder 01/30/24 documented as of this encounter Additional Source Comments The information contained in this document represents components of the legal health record. It is not the complete legal health record.[facility]
--- OUTSIDE RECORDS SUMMARY | 2025-07-03 21:07 | XMS_ITS | Encounter Summary ---
Author Organization [facility] Address [address] [facility] [address] [place] [address] Phone Care Team Providers Care Building Maintenance Mechanic Name Role Phone Alverto Stearns MD Primary Care Provider [phone] Spencer Quezada MD Primary Care Provide r Juan Saldaña MD Primary Care Provider + Sheila Coy PA Unavailable [phone] Encounter Details Date Type Department Care Team (Latest Contact Info) Description 04/20/2021 Transcribe Orders Virtual Department [address] [place], [place] [id number] Khai Diaz I, DO [address] [id number] [email or web address] Left hip pain (Primary Dx) Social History Tobacco Use Types Packs/Day Years [...] as of this encounter Results * XR HIP 2 VW LEFT PLUS PELVIS (04/21/2021 9:18 AM EDT) Anatomical Region Laterality Modality Hip Left Computed Radiogr aphy 04/21/2021 9:37 AM EDT Addenda Addendum by Faizan Gray MD on 04/21/2021 9:54 AM EDT ADDENDUM: Correction to report: FINDINGS: Severe joint space narrowing and marginal spurring at the left hip. Prominent cystic change within the FEMORAL head, likely degenerative. Mild subchondral sclerosis. More mild degenerative changes at the right hip. No flattening of the femoral heads. No fractures, subluxations or dislocations. Impressions 04/21/2021 9:40 AM EDT Severe degenerative changes at the left hip. Narrative 04/21/2021 9:40 AM EDT HISTORY: Left hip pain. COMPARISON: None VIEWS: AP view the pelvis and AP and lateral views left hip. FINDINGS: Severe joint space narrowing and marginal spurring at the left hip. Prominent cystic change within the humeral head, likely degenerative. Mild subchondral sclerosis. More mild degenerative changes at the right hip. No flattening of the femoral heads. No fractures, subluxations or dislocations. Procedure Note Faizan Gray MD - 04/21/2021 HISTORY: Left hip pain. COMPARISON: None VIEWS: AP view the pelvis and AP and lateral views left hip. FINDINGS: Severe joint space narrowing and marginal spurring at the left hip.Prominent cystic change within the humeral head, likely degenerative. Mildsubchondral sclerosis. More mild degenerative changes at the right hip. Noflattening of the femoral heads. No fractures, subluxations ordislocations. IMPRESSION: Severe degenerative changes at the left hip. us Khai Diaz DO IMG XR PELVIS Edited Resul t - Final documented in this encounter Visit Diagnoses Diagnosis Left hip pain- Primary Pain in joint, pelvic region and thigh Left hip pain Pain in joint, pelvic region and thigh documented in this encounter Care Teams Building Maintenance Mechanic Relationship Specialty Start Date End Date Alverto Stearns MD [address] [address] PCP - General Gastroenterology 01/27/21 12/28/21 Spencer Quezada MD [address] [place] [address] PCP - General Internal Medicine 12/29/21 10/18/22 Juan Saldaña MD [address] [place] [address] PCP - General Family Medicine 10/19/22 Sheila Coy [facility] [place] [address] Physician Lawn Mower Operator 01/30/24 documented as of this encounter Additional Source Comments The information contained in this document represents components of the legal health record. It is not the complete legal health record.[facility]
--- OUTSIDE RECORDS SUMMARY | 2025-07-03 21:08 | XMS_ITS | Encounter Summary ---
Author Organization [facility] Address [address] [place] [address] Care Team Providers Care Hand Molder Meat Name Role Phone Spencer Quezada MD Primary Care Provider [phone] Encounter Details Date Type Department Care Team (Late st Contact Info) Description 07/13/2022 Scanned Document [facility] Rheumatology [address] [place] [address] Rheumatology, Scan Social History Tobacco Use Types Packs/Day Years Used Date Smoking Tobacco: Former Cigarettes Q uit: 2017 Smokeless Tobacco: Never Comments:He is a prior smoke r, but quit about 5 years ago. He previously smoked one pack a month for about 10 years. He drinks alcohol socially. Alcohol Use Standard Drinks/Week Comments Yes 0 (1 standard drink = 0.6 oz pur e alcohol) social Sex and Gender Information Value Date Recorded Sex Assigned at Not on file Legal Sex Male 8:34 AM EDT Gender Identity Not on file Sexual Orientation Not on file COVID-19 Exposure Response Date Recorded In the last 10 days, have yo u been in contact with someone who was confirmed or suspected to have Coronavirus/COVID-19? No / Unsure 06/20/2022 8:38 AM EDT documented as of this encounter Plan of Treatment Not on file documented as of this encounter Visit Diagnoses Not on filedocumented in this encounter Care Teams Hand Molder Meat Relationship Specialty Start Date End Date Spencer Quezada MD [facility] [address] [place] [address] PCP - General Internal Medicine 03/23/22 documented as of this encounter
--- OUTSIDE RECORDS SUMMARY | 2025-07-03 21:08 | XMS_ITS | Encounter Summary ---
Author Organization [facility] Address [address] [place] [address] Care Team Providers Care Edge Runner Name Role Phone Spencer Quezada MD Primary Care Provider [phone] Encounter Details Date Type Department Care Team (Late st Contact Info) Description 07/11/2022 Scanned Document [facility] RHEUMATOLOGY SCAN Rheumatology, Scan Social History Tobacco Use Types [...] on filedocumented in this encounter Care Teams Edge Runner Relationship Specialty Start Date End Date Spencer Quezada MD [facility] [place] [address] [place] [address] PCP - General Internal Medicine 03/23/22 documented as of this encounter
--- OUTSIDE RECORDS SUMMARY | 2025-07-03 21:08 | XMS_ITS | Encounter Summary ---
Author Organization [facility] Address [address] [place] [address] [place] [address] Phone Care Team Providers Care Landfill Attendant Name Role Phone Alverto Stearns MD Primary Care Provider [phone] Spencer Quezada MD Primary Care Provide r Juan Saldaña MD Primary Care Provider + Sheila Coy PA Unavailable [phone] Encounter Details Date Type Department Care Team (Late st Contact Info) Description 02/06/2021 Procedure Pass [address] [place] [address] Social History Tobacco Use Types Packs/Day Years Used Date Smoking Tobacco: Never Assessed Sex and Gender Information Value Date Recorded Sex Assigned at Male 01/27/2021 10:57 AM EDT Legal Sex Male 10:48 AM EDT Gender Identity Male 01/27/2021 10:57 AM EDT Sexual Orientation Straight 01/27/2021 10 :57 AM EDT documented as of this encounter Last Filed Vital Signs Vital Sign Reading Time Taken Comments Blood Pressure - - Pulse - - Temperature - - Respiratory Rate - - Oxygen Saturation - - Inhaled Oxygen Concentration - - Weight 113.4 kg (250 lb) 02/06/2021 6:22 PM EDT Height 182.9 cm (6') 02/06/2021 6:22 PM EDT Body Mass Index 33.91 02/06/2021 6:22 PM EDT documented in this encounter Plan of Treatment Not on file documented as of this encounter Visit Diagnoses Not on filedocumented in this encounter Care Teams Landfill Attendant Relationship Specialty Start Date End Date Alverto Stearns MD [address] [place] [address] PCP - General Gastroenterology 01/27/21 12/28/21 Spencer Quezada MD [address] [place] [address] PCP - General Internal Medicine 12/29/21 10/18/22 Juan Saldaña MD [address] [place] [address] PCP - General Family Medicine 10/19/22 Sheila Coy PA [address] [place] [address] Physician Support Specialist 01/30/24 documented as of this encounter Additional Source Comments The information contained in this document represents components of the legal health record. It is not the complete legal health record.[facility]
--- OUTSIDE RECORDS SUMMARY | 2025-07-03 21:08 | XMS_ITS | Patient Health Record ---
Author Organization [facility] Address [address] [facility] [address] [place] [address] Care Team Providers Care Receiver Bulk System Name Role Phone Joan CORDOVA MSc, Gabrielle Unavailable [phone] Reason For Referral No Information Medications Medication SIG (Take, Route, Frequency, Duration) Notes Start Date End Date Status Amoxicillin 250 MG Capsule 1 capsule Orally every 8 hrs; Duration: 10 day(s) sinus infection Active Social History Social History Social History Social Info Question Answer Notes Opioid Risk Tool Family history of alcoholism No Family history of illegal drugs No Family history of prescription drugs No Personal alcoholism No Personal history of illegal drugs No Person history of prescription drugs No History of preadolescent abuse No Depression No Total Score Low 0-3 (<6% risk of opioid misu se) Smoking Are you a never smoked Additional Details Category Social Info Options Details Social History Occupation [employer] Recreational drug use no Caffeine no Persons in the home Alone Plan Of Treatment No Information Insurance Providers Payer Name Payer Address Payer Phone Subscriber Number Group Number Insured Name Patient Relationship to Insured Coverage Start Date Coverage End Date [facility] [address] [place], [place] [id number] [phone] [id number] Poncho Baltazar Self - patient is the insured Medical (General) History Medical History History ICD Code left finger amputation Surgical History Surgery Date(Month/Year) right knee mensicus repair 2011? left finger, amputation 07/2018
--- OUTSIDE RECORDS SUMMARY | 2025-07-03 21:08 | XMS_ITS | Clinical Summary ---
Author Organization [facility] Address [address] [place] [address] Care Team Providers Care Entry Level Software Developer Name Role Phone Juan Saldaña MD Primary Care Provider [phone] Allergies Active Allergy Reactions Criticality Noted Date Comments Amlodipine Other (See Comments) 11/24/2021 Amoxicillin Other (See Comments) 10/13/2020 Medications Medication Sig Dispensed Refills Start Date End Date Status valsartan-hydroCHLORO thiazide (DIOVAN HCT) tablet 160-12.5 mg valsartan 160 mg-hydrochlorothiaz saravanan 12.5 mg tablet TAKE 1 TABLET BY MOUTH EVERY DAY 0 04/13/2022 Active Active Problems Problem Noted Date Diagnosed Date Hamstring tightness of right lower extremity Arthritis of knee, right 07/31/2022 Family History Medical History Relation Name Comments Cancer Mother Hypertension Sister Relation Name Status Comments Mother Sister Social History Tobacco Use Types Packs/Day Years Used Date Smoking Tobacco: Never Assessed Smokeless Tobacco: Never Tobacco Cessation:Counseling Given: Not Answered Alcohol Use Standard Drinks/Week Comments Yes 1 (1 standard drink = 0.6 oz pur e alcohol) Sex and Gender Information Value Date Recorded Sex Assigned at Not on file Gender Identity Not on file Sexual Orientation Not on file Job Start Date Occupation Industry Not on file Not on file Not on file Last Filed Vital Signs Vital Sign Reading Time Taken Comments Blood Pressure - - Pulse - - Temperature - - Respiratory Rate - - Oxygen Saturation - - Inhaled Oxygen Concentration - - Weight 115.7 kg (255 lb) 10/05/2022 3:04 PM EST Height 182.9 cm (6') 10/05/2022 3:04 PM EST Body Mass Index 34.58 10/05/2022 3:04 PM EST Plan of Treatment Health Maintenance Due Date Last Done Comments Hepatitis C Screening 1962 Depression Screening 1974 BMI Counseling 1980 Preventative Health Evaluation 1980 DTap / Tdap / Td (1 - Tdap) 1981 Colon Cancer Screening (Colonoscopy) 11/21/2007 Shingrix-Zoster Vaccine (1 o f 2) 2012 COVID-19 Vaccine (3 - 2024-2 6 season) 2025 02/21/2022, 11/22/2020 Influenza Vaccine (#1) 2025 RSV Adult > 60+ Yrs or (1 - 1-dose 75+ series) 2037 Hepatitis B Vaccines Aged Out No long er eligible based on patient's age to complete this topic Pneumococcal Vaccine Aged Out No long er eligible based on patient's age to complete this topic RSV Ped < 20 months Aged Out No longe r eligible based on patient's age to complete this topic Care Teams Entry Level Software Developer Relationship Specialty Start Date End Date Juan Saldaña MD [address] [place] [id number] PCP - General Family Medicine 07/30/22
--- OUTSIDE RECORDS SUMMARY | 2025-07-03 21:08 | XMS_ITS | Clinical Summary ---
Author Organization [facility] Address [address] [place] [address] Care Team Providers Care Camera Tuning Engineer Name Role Phone Spencer Quezada MD Primary Care Provider [phone] Allergies Active Allergy Reactions Criticality Noted Date Comments Amlodipine Other (See Comments) 11/24/2021 Amoxicillin Other (See Comments) 10/13/2020 Medications valsartan-hydro chlorothiazide (DIOVAN-HCT) 160-12.5 MG per tablet valsartan 160 mg-hydrochloro thiazide 12.5 mg tablet TAKE 1 TABLET BY MOUTH EVERY DAY 2 Active Active Problems Problem Noted Date Diagnosed Date Myopathy 06/20/2022 Primary osteoarthritis involving multiple joints 06/20/2022 Family History Medical History Relation Name Comments COPD Father Breast cancer Mother Relation Name Status Comments Father Mother Social History Tobacco Use Types Packs/Day Years Used Date Smoking Tobacco: Former Cigarettes Q uit: 2017 Smokeless Tobacco: Never Tobacco Cessation:Counseling Given: Not Answered Comments:He is a prior smoker, but quit about 5 years ago. He [...] on file Sexual Orientation Not on file Last Filed Vital Signs Vital Sign Reading Time Taken Comments Blood Pressure 121/83 06/20/2022 8:46 AM EDT Pulse 79 06/20/2022 8:46 AM EDT Temperature 36.8 C (98.2 F) 06/20/2022 8:46 AM EDT Respiratory Rate - - Oxygen Saturation 98% 06/20/2022 8:46 AM EDT Inhaled Oxygen Concentration - - Weight 116 kg (255 lb) 06/20/2022 8:46 AM EDT Height 182.9 cm (6') 06/20/2022 8:46 AM EDT Body Mass Index 34.58 06/20/2022 8:46 AM EDT Plan of Treatment Health Maintenance Due Date Last Done Comments Hepatitis C Virus Screening 1962 HIV Screening 11/21/1975 DTaP/Tdap/Td Vaccines (1 - Tdap) 1981 Colonoscopy 11/21/2007 Pneumococcal Vaccines 50+ (1 of 1 - PCV) 2012 RSV Vaccine 50 years and older and Patients (1 - Risk 50-74 years 1-dose series) 2012 Zoster (Shingles) Vaccine (1 of 2) 2012 Influenza Vaccine 03/19/2025 COVID-19 Vaccine (3 - 2024-2 6 season) 2025 02/21/2022, 11/22/2020 Hepatitis B Vaccines Aged Out No long er eligible based on patient's age to complete this topic Insurance [employer] [facility] Care Teams Camera Tuning Engineer Relationship Specialty Start Date End Date Spencer Quezada MD [address] [place] [id number] PCP - General Internal Medicine 03/23/22
--- OUTSIDE RECORDS SUMMARY | 2025-07-03 21:09 | XMS_ITS | Encounter Summary ---
Author Organization [facility] Address [address] [place] [address] [place] [address] Phone Care Team Providers Care Customer Experience Specialist Name Role Phone Alverto Stearns MD Primary Care Provider [phone] Spencer Quezada MD Primary Care Provide r Juan Saldaña MD Primary Care Provider + Sheila Coy PA Unavailable [phone] Encounter Details Date Type Department Care Team (Late st Contact Info) Description 02/06/2021 Procedure Pass [facility], [address] [place] [address] Social History Tobacco Use Types Packs/Day Years [...] on filedocumented in this encounter Care Teams Customer Experience Specialist Relationship Specialty Start Date End Date Alverto Stearns MD [address] [address] PCP - General Gastroenterology 01/27/21 12/28/21 Spencer Quezada MD [address] [place] [address] [address] [place] [address] PCP - General Internal Medicine 12/29/21 10/18/22 Juan Saldaña MD [address] [place] [address] PCP - General Family Medicine 10/19/22 Sheila Coy [place] [place] [address] Physician Car Mechanic Helper 01/30/24 documented as of this encounter Additional Source Comments The information contained in this document represents components of the legal health record. It is not the complete legal health record.[facility]
--- OUTSIDE RECORDS SUMMARY | 2025-07-03 21:09 | XMS_ITS | Encounter Summary ---
Author Organization [facility] Address [address] [facility] [address] [place] [address] Phone Care Team Providers Care Sole Scraper Name Role Phone Alverto Stearns MD Primary Care Provider [phone] Spencer Quezada MD Primary Care Provide r Juan Saldaña MD Primary Care Provider + Sheila Coy PA Unavailable [phone] Encounter Details Date Type Department Care Team (Late st Contact Info) Description 11/24/2021 Procedure Pass [facility], Ct Scan - [address] [address] Social History Tobacco Use Types Packs/Day Years Used Date Smoking Tobacco: Never Smokeless Tobacco: Never Alcohol Use Standard Drinks/Week Comments Yes 0 (1 standard drink = 0.6 oz pur e alcohol) very little Sex and Gender Information Value Date Recorded Sex Assigned at Male 01/27/2021 10:57 AM EDT Legal Sex Male 10:48 AM EDT Gender Identity Male 01/27/2021 10:57 AM EDT Sexual Orientation Straight 01/27/2021 10 :57 AM EDT documented as of this encounter Plan of Treatment Not on file documented as of this encounter Visit Diagnoses Not on filedocumented in this encounter Care Teams Sole Scraper Relationship Specialty Start Date End Date Alverto Stearns MD [address] [address] PCP - General Gastroenterology 01/27/21 12/28/21 Spencer Quezada MD [address] [place] [address] PCP - General Internal Medicine 12/29/21 10/18/22 Juan Saldaña MD [address] [place] [address] PCP - General Family Medicine 10/19/22 Sheila Coy PA [address] [place] [address] Physician Cut Off Saw Operator Pipe Blanks 01/30/24 documented as of this encounter Additional Source Comments The information contained in this document represents components of the legal health record. It is not the complete legal health record.[facility]
--- OUTSIDE RECORDS SUMMARY | 2025-07-03 21:09 | XMS_ITS | Encounter Summary ---
Author Organization [facility] Address [address] [facility] [address] [place] [address] Phone Care Team Providers Care Conveyor Monitor Name Role Phone Spencer Quezada MD Primary Care Provide r Juan Saldaña MD Primary Care Provider + Sheila Coy PA Unavailable [phone] Encounter Details Date Type Department Care Team (Late st Contact Info) Description 08/01/2022 Procedure Pass [facility] [address] [place] [address] Social History Tobacco Use Types Packs/Day Years [...] on filedocumented in this encounter Care Teams Conveyor Monitor Relationship Specialty Start Date End Date Spencer Quezada MD [address] [place] [address] [address] [place] [address] PCP - General Internal Medicine 12/29/21 10/18/22 Juan Saldaña MD [address] [place] [address] PCP - General Family Medicine 10/19/22 Sheila [facility] [place] [address] Physician Founder Ceo & President 01/30/24 documented as of this encounter Additional Source Comments The information contained in this document represents components of the legal health record. It is not the complete legal health record.[facility]
--- OUTSIDE RECORDS SUMMARY | 2025-07-03 21:09 | XMS_ITS | Clinical Summary ---
Author Organization [facility] Address [address] [place] [address] Phone Care Team Providers Care Hand Sander Name Role Phone Juan Saldaña MD Primary Care Provider + Sheila Coy PA Unavailable [phone] Allergies Active Allergy Reactions Criticality Noted Date Comments Amlodipine 11/24/2021 Leg cramps Amoxicillin 10/13/2020 Latex Rash Low 10/02/2023 Mold Extracts 02/13/2024 Medications valsartan-hydro CHLOROthiazide (DIOVAN-HCT) 160-12.5 mg per tablet valsartan 160 mg-hydrochloro thiazide 12.5 mg tablet TAKE 1 TABLET BY MOUTH EVERY DAY 2 Active budesonide (PULMICORT) 0.5 mg/2 mL nebulizer solution Mix 2 mL (1 ampule) with 8 oz saline solution then irrigate each nostril with 1/2 bottle qD 180 mL 1 2 Active budesonide (PULMICORT) 0.5 mg/2 mL nebulizer solution Mix 2 mL (1 ampule) with 8 oz saline solution then irrigate each nostril with 1/2 bottle qD 180 mL 3 4 Active azelastine (ASTELIN) 137 mcg (0.1 %) nasal spray 2 sprays by Nasal route 2 (two) times a day. Use in each nostril as directed 30 mL 12 4 Active acetaminophen (TYLENOL) 325 mg tablet Take 2 tablets (650 mg total) by mouth every 6 (six) hours as needed for pain (specific location in comments) (moderate pain). 60 tablet Active Active Problems Problem Noted Date Diagnosed Date H/O cervical spine surgery 02/13/2024 Deviated septum 11/24/2021 Chronic maxillary sinusitis 11/24/2021 Social History Tobacco Use Types Packs/Day Years Used Date Smoking Tobacco: Former Cigarettes Smokeless Tobacco: Never Tobacco Cessation:Counseling Given: Not Answered Comments:Smoked 1 pack per month 2003 to 2013 Alcohol Use Standard Drinks/Week [...] Orientation Straight 01/27/2021 10 :57 AM EDT Last Filed Vital Signs Vital Sign Reading Time Taken Comments Blood Pressure 123/80 02/15/2024 12:12 PM EDT Pulse 98 02/15/2024 12:12 PM EDT Temperature 36.5 C (97.7 F) 02/15/2024 7:40 AM EDT Respiratory Rate 17 02/15/2024 7:40 AM EDT Oxygen Saturation 99% 02/15/2024 12:12 PM EDT Inhaled Oxygen Concentration - - Weight 120.2 kg (265 lb) 05/18/2024 7:58 AM EDT Height 182.9 cm (6') 05/18/2024 7:58 AM EDT Body Mass Index 35.94 05/18/2024 7:58 AM EDT Plan of Treatment Health Maintenance Due Date Last Done Comments Adult Td,Tdap Booster 1962 LIPID PANEL 1962 DEPRESSION SCREENING 1974 SMOKING Hx and SMOKELESS TOBACCO SCREENING 11/21/1975 HEPATITIS C SCREENING 1980 HIV ONE-TIME SCREENING (18-6 5 YEARS) 1980 PNEUMOCOCCAL VACCINES (50+ years) (1 of 2 - PCV) 1981 COLOGUARD 11/21/2007 COLONOSCOPY 11/21/2007 COLORECTAL CANCER SCREENING 11/21/2007 FIT TEST 11/21/2007 FOBT 11/21/2007 SIGMOIDOSCOPY 11/21/2007 VIRTUAL COLONOSCOPY 11/21/2007 ZOSTER VACCINES (1 of 2) 2012 CREATININE LEVEL 02/14/2025 02/15/2024, 02/14/2024 POTASSIUM LEVEL 02/14/2025 02/15/2024, 02/14/2024 INFLUENZA VACCINE (#1) 2025 COVID-19 VACCINE (3 - 2024-2 6 season) 2025 02/21/2022, 11/22/2020 SCREENING FOR DIABETES 02/14/2027 02/15/2024 RSV VACCINE (1 - 1-dose 75+ series) 2037 HEPATITIS A VACCINES Aged Out 02/21/2022, 08/24/2021 No longer eligible based on patient's age to complete this topic HIB VACCINES Aged Out No longer eligi ble based on patient's age to complete this topic IPV VACCINES Aged Out No longer eligi ble based on patient's age to complete this topic MENINGOCOCCAL VACCINES (ACWY) Aged Out No longer eligible based on patient's age to complete this topic MENINGOCOCCAL VACCINES (B) Aged Out N o longer eligible based on patient's age to complete this topic Medical Devices Implanted Type Area Open Hearth Stockyard Supervisor Device Identifier Shelf Expiration Date Model / Serial / Lot Left Hip Hardware Screw Bone 4x14mm Spine Cervical Vectra Titanium Variable Angle Self Retaining Drilling Delmy - [id number] Implanted:Qty: 4 on 02/13/2024 by Eric Blanca MD at [facility] N/A: Anterior Cervical [employer]PU[employer] SPINE [id number] / / Plate Spine [id number] One Level Vectra Titanium - [id number] Implanted:Qty: 1 on 02/13/2024 by Eric Blanca MD at [facility] N/A: Anterior Cervical [employer] SPINE [id number] / / Procedures Procedure Name Priority Date/Time Associated Diagnosis Comments BASIC METABOLIC PANEL (BMP) Routine 02/15/2024 6:13 AM EDT from Last 3 Months or Most Recently Relevant to Health Maintenance Results * Basic metabolic panel (02/15/2024 6:13 AM EDT) SODIUM 139 135 - 145 mmol/L [facility] POTASSIUM 3.9 3.4 - 5.0 mmol/L [facility] CHLORIDE 99 98 - 108 mmol/L [facility] CO2 27 23 - 32 mmol/L [facility] BUN 17 8 - 25 mg/dL [facility] CREATININE 1.05 0.60 - 1.50 mg/dL [facility] GLUCOSE 95 70 - 110 mg/dL [facility] CALCIUM 9.4 8.5 - 10.5 mg/dL [facility] EGFR 81 >59 mL/min/1.7 3m2 [facility] Comment:Estimated glomerular filtration rate calculated using the CKD-EPI refit equation. ANION GAP 13 3 - 17 mmol/L [facility] Blood 02/15/2024 6:13 AM EDT 02/15/2024 6:51 AM EDT us Eric Blanca MD LAB BLOOD BKR ORDERABLES Final Result [address] [address] from Last 3 Months or Most Recently Relevant to Health Maintenance Insurance HC EXPLORER POS [facility] EXPLORER POS [facility] EXPLORER POS THE [facility] EXPLORER POS THE [facility] EXPLORER POS HC EXPLORER POS THE [facility] C[facility] EXPLORER POS THE [facility] C[facility] EXPLORER POS THE MEDICAL CENTER EXPLORER POS [facility] [place] [phone] Advance Directives For more information, please contact: [phone] (9AM - 5PM [facility], Saturday-Saturday) Documents on File Type Date Recorded Patient Motorcycle Assembler Expl anation Healthcare Proxy 08/03/2022 11:01 PM * Full Code (Latest Code Status on File) Date Activated Date Inactivated Comments 02/13/2024 2:20 PM Question Answer Comments Code Status Confirmed With: Other (specify below ) Code Discussion Comments: presumed Care Teams Hand Sander Relationship Specialty Start Date End Date Juan Saldaña MD [address] [place] [address] PCP - General Family Medicine 10/19/22 Sheila Coy [facility] [place] [address] Physician Radio Presenter 01/30/24 Additional Source Comments The information contained in this document represents components of the legal health record. It is not the complete legal health record.[facility]
--- OUTSIDE RECORDS SUMMARY | 2025-07-03 21:09 | XMS_ITS | Encounter Summary ---
Author Organization [facility] Address [address] [facility] [address] [place] [address] Phone Care Team Providers Care Track Coach Name Role Phone Juan Saldaña MD Primary Care Provider + Sheila Coy Unavailable [phone] Encounter Details Date Type Department Care Team (Late st Contact Info) Description 06/30/2024 Procedure Pass [facility], Ct Scan - [address] [address] Social History Tobacco Use Types Packs/Day Years Used Date Smoking Tobacco: Former Cigarettes Smokeless Tobacco: Never Comments:Smoked [address] [facility] 2003 to 2013 Alcohol Use Standard Drinks/Week [...] on filedocumented in this encounter Care Teams Track Coach Relationship Specialty Start Date End Date Juan Saldaña MD [address] [place] [address] PCP - General Family Medicine 10/19/22 Sheila Coy PA [address] [address] Physician Support Worker 01/30/24 documented as of this encounter Additional Source Comments The information contained in this document represents components of the legal health record. It is not the complete legal health record.[facility]
[2025-07-03 21:44] VITALS: BP 173/79; PULSE 48; RESP 18; TEMP 36.3; O2SAT 95
== END 2025-07-03 20:58 | disposition home or self-care (01) ==
PROVIDERS: Emergency Provider Student in an Organized Health Care Education/Training Program; PCP Family Medicine
DX: M25.571 Pain in right ankle and joints of right foot (principal); I10 Essential (primary) hypertension; Z96.642 Presence of left artificial hip joint; Z88.0 Allergy status to penicillin
CPT/HCPCS: 73600; 99282; 99283

== ENCOUNTER → 2025-07-03 19:42 | Outpatient (BNV) | payer OTHER, SELFPAY | PROVIDERS: Emergency Provider Student in an Organized Health Care Education/Training Program; PCP Family Medicine; Visit Provider Student in an Organized Health Care Education/Training Program | DX: M19.071 Primary osteoarthritis, right ankle and foot (principal); M77.31 Calcaneal spur, right foot | CPT/HCPCS: 73600 ==